=== PATIENT | male | born 1965 | race Caucasian/White ===

== ENCOUNTER 2018-02-08 07:51 | Inpatient (IN) | payer OTHER ==
[~2018-02-08] VITALS: Ht 172.7 cm; Wt 108.5 kg
[~2018-02-08 07:51] MED LIST: AMMONIUM LACTATE121 TOP; AMMONIUM LACTATE121 TP; ARIPIPRAZOLE10 MG PO; ATORVASTATIN CA10 MG PO; AUGMENTIN 500M500 MG PO; AUGMENTIN 875 M1 TAB PO; CEFAZOLIN1 G1 IV; CEFTAZIDIME2 GM IV; CITALOPRAM HYDR40 MG PO; CYCLOPENTOLATE IO; GABAPENTIN300 MG PO; METFORMIN500 MG PO; MIRTAZAPINE15 MG PO; MOBIC15 M1 PO; ONE TOUCH ULTRA TEST; OXYCODONE5 MG PO; PERCOCET 325 MG1 TA2 PO; PERCOCET 5-3251 EACH PO; PREDNISOLONE AC10 ML OPH; QUETIAPINE FUMA25 MG PO; SIMVASTATIN20 MG PO; TRAZODONE100 MG PO; VANCOMYCIN HCL1 G1 IV
--- NOTE | 2018-02-08 08:28 | ED GENERAL ADULT ---
See Addendum History of Present Illness General Chief Complaint: Plantar Puncture Wound Stated Complaint: OPEN WOUND ON L FOOT,FEVER,CHILLS HX OF DIABETES Source: patient, old records, PCP Exam Limitations: no limitations Vital Signs & Intake/Output Vital Signs & Intake/Output Vital Signs Date Time Temp Pulse Resp B/P B/P Pulse O2 O2 Flow FiO2 Mean Ox Delivery Rate 02/08 1108 99.1 83 20 118/68 96 Room Air 02/08 0803 103.0 02/08 0759 103.0 113 18 152/92 99 Room Air Allergies Coded Allergies: simvastatin (UNKNOWN 04/19/16) atorvastatin (From Lipitor) (VERTIGO 04/19/16) Reconcile Medications Aripiprazole 10 MG TABLET 1 TAB PO DAILY MENTAL HEALTH (Reported) Citalopram Hydrobromide (Citalopram HBr) 40 MG TABLET 1 TAB PO DAILY DEPRESSION (Reported) Gabapentin 300 MG CAPSULE 1 CAP PO 4 TIMES/DAY NEUROPATHY (Reported) Meloxicam (Mobic) 15 MG TABLET 1 TAB PO DAILY PRN PAIN/INFLAMMATION METFORMIN HCL (Metformin) 500 MG TABLET 500 MG PO BID DIABETES (Reported) Mirtazapine 15 MG TABLET 1 TAB PO QPM SLEEP (Reported) OXYCODONE HCL/ACETAMINOPHEN (Percocet 5-325 MG Tablet) 325 MG/5 MG TAB 1-2 TAB PO Q4-6 PRN PRN PAIN Oxycodone HCl/Acetaminophen (Percocet 5-325 MG Tablet) 5 MG-325 MG TABLET 1 TAB PO Q6-PRN PRN PAIN SCALE 4-6 (MODERATE) Quetiapine Fumarate 25 MG TAB 1 TAB PO DAILY DEPRESSION (Reported) TRAZODONE HCL (Trazodone HCl) 100 MG TABLET 1 TAB PO QPM SLEEP (Reported) Triage Note: PT TO ED FOR EXACERBATION OF CHRONIC WOUND ON L FOOT, HX DIABETES. REPORTING SUBJECTIVE FEVER AT HOME, CHILLS AND GENERALIZED WEAKNESS. Triage Nurses Notes Reviewed? yes HPI: Patient presents with increasing pain and redness to the ulcer on the bottom of his left foot. Patient sees Dr. Reese in the wound center for this. Patient is diabetic with neuropathy. Patient states that he started running a fever no chills 2 days ago. The fevers on as high as 103 at home. Patient denies any nausea or vomiting. He describes the pain as throbbing which is constant. He rates it at 8 out of 10. There is no aggravating or mitigating factors. There is no radiation of the pain. Past History Travel History Traveled to [place] past 21 day No Medical History Any Pertinent Medical History? 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 MOTHER (TIA, CAD s/p CABG age 70). Hx Contributory? No Review of Systems Review of Systems Constitutional: Reports: see HPI, chills, fever. EENTM: Reports: no symptoms. Respiratory: Reports: no symptoms. Cardiovascular: Reports: no symptoms. GI: Reports: no symptoms. Genitourinary: Reports: no symptoms. Musculoskeletal: Reports: see HPI. Skin: Reports: see HPI. Neurological/Psychological: Reports: no symptoms. Hematologic/Endocrine: Reports: no symptoms. Immunologic/Allergic: Reports: no symptoms. All Other Systems: Reviewed and Negative Physical Exam Physical Exam General Appearance: well developed/nourished, alert, awake, moderate distress Head: atraumatic, normal appearance Eyes: Bilateral: PERRL, EOMI. Ears, Nose, Throat: normal pharynx, normal ENT inspection Neck: normal inspection, supple, full range of motion Respiratory: normal breath sounds, chest non-tender, no respiratory distress, lungs clear Cardiovascular: regular rate/rhythm, normal peripheral pulses Peripheral Pulses: 2+ tibialis posterior (R), 2+ tibialis posterior (L), 3+ dorsalis pedis (R), 3+ dorsalis pedis (L) Gastrointestinal: normal bowel sounds, soft, non-tender, no organomegaly Back: normal inspection Extremities: DEEP ULCER WITH SURROUNDING ERYTHEMA PLANTER ASPECT OF LEFT FOOT. Neurologic/Psych: awake, alert, oriented x 3 Lymphatic: NO ADENOPATHY Core Measures ACS in differential dx? No CVA/TIA Diagnosis: No Sepsis Present: Yes Sepsis Focused Exam Completed? Yes ED Sepsis Exam Date of Focused Sepsis Exam: 02/08/18 Time of Focused Sepsis Exam: 922 Sepsis Cardiac Exam: Regular Rate/Rhythm Sepsis Resp Exam: CTA Sepsis Cap Refill Exam: <2 Sec Sepsis Peripheral Pulse Exam: Normal Sepsis Peripheral Pulse Location: Dorsalis Pedis Sepsis Skin Color Exam: Normal for Ethnicity Skin Temp/Moisture Exam: Warm/Dry Progress Differential Diagnoses I considered the following diagnoses in my evaluation of the patient: [OSTEO, INFECTIC DIABETIC FOOT ULCER] Plan of Care: Orders Procedure Date/time Status LACTIC ACID 02/08 1127 Active RAPID VIRAL INFLUENZA A 02/08 827 Complete BLOOD CULTURE 02/08 827 Active URINALYSIS 02/08 827 Active TROPONIN LEVEL 02/08 827 Complete LACTIC ACID 02/08 827 Complete COMPREHENSIVE METABOLIC PANEL 02/08 827 Complete CBC WITHOUT DIFFERENTIAL 02/08 827 Complete EKG 02/08 827 Active Current Medications Sig/Rafaela Start time Last Medication Dose Stop Time Status Admin Ampicillin Sodium/ 3,000 MG ONCE ONE 02/08 1115 AC Sulbactam Sodium 02/08 1144 (Unasyn) Sodium Chloride 100 ML (Normal Saline 0.9%) Sodium Chloride 1,000 ML BOLUS ONE 02/08 1115 AC (Normal Saline 0.9%) 02/08 1214 Sodium Chloride 1,000 ML BOLUS ONE 02/08 1115 AC (Normal Saline 0.9%) 02/08 1214 Laboratory Tests 02/08/18 0839: Anion Gap 20 H, Estimated GFR > 60, BUN/Creatinine Ratio 17.0, Glucose 199 H, Lactic Acid 1.1, Calcium 9.5, Total Bilirubin 1.4 H, AST 32, ALT 35, Alkaline Phosphatase 93, Troponin I < 0.01, Total Protein 7.1, Albumin 3.9, Globulin 3.2, Albumin/Globulin Ratio 1.2, CBC w Diff MAN DIFF ORDERED, RBC 4.51 L, MCV 79.8 L, MCH 26.6 L, MCHC 33.4, RDW 16.1 H, MPV 8.6, Gran % 86.4 H, Lymphocytes % 6.2 L, Monocytes % 7.1, Eosinophils % 0.2, Basophils % 0.1, Absolute Granulocytes 12.2 H, Absolute Lymphocytes 0.9 L, Absolute Monocytes 1.0 H, Absolute Eosinophils 0, Absolute Basophils 0, Platelet Estimate VERIFIED BY SMEAR, Polychromasia 1+, Anisocytosis 1+, Microcytic Cells 1+ Microbiology 02/08 839 NASOPHARYN: Influenza Virus A & B Rapid Smear - COMP 02/08 839 BLOOD: Blood Culture - RECD 02/08 839 BLOOD: Blood Culture - RECD Diagnostic Imaging: Viewed by Me: Radiology Read. Discussed w/RAD: Radiology Read. Radiology Impression: PATIENT: JOAN VÁZQUEZ PRESENT AGE: 52 PATIENT ACCOUNT NO: [id number] : 67 LOCATION: [facility] ORDERING PHYSICIAN: Stef Mathew MD SERVICE DATE: 02/08/18 EXAM TYPE: RAD - XRY-FOOT COMPLETE, LEFT EXAMINATION: XR FOOT, LEFT CLINICAL INFORMATION: Foot ulcer. COMPARISON: 12/19/16. MRI of 04/20/16. TECHNIQUE: AP, lateral, and oblique views of the left foot. FINDINGS: There is been previous resection of the fifth metatarsal and fifth toe with partial resection at the base of the fourth metatarsal. The fourth metatarsal is partially fused to the third. Extensive erosion along the lateral aspect of the foot involving the cuboid and anterior calcaneus is again demonstrated. Neuropathic changes in the midfoot are again demonstrated. There is marked subluxation or dislocation of the talonavicular joint. Severe degenerative changes. No acute bony abnormality is seen. There is ulceration on the plantar aspect of the foot with extensive air dissection into the lower leg along the fibula concerning for fasciitis. IMPRESSION: 1. Soft tissue ulceration plantar aspect of the foot with prominent air dissection concerning for fasciitis/gangrene. 2. Chronic osseous changes as described with no acute abnormality seen. This critical result was discussed with Dr. Mathew at 1001 hours. DICTATED BY: Brayan Huggins MD DATE/TIME DICTATED:02/08/18945 SYRUP BLENDER:MAEGAN DATE/TIME TRANSCRIBED:945 CONFIDENTIAL, DO NOT COPY WITHOUT APPROPRIATE AUTHORIZATION. < Electronically signed in Other Vendor System> SIGNED BY: Brayan Huggins MD 02/08/18 1005 CXR Impression: PATIENT: JOAN VÁZQUEZ PRESENT AGE: 52 PATIENT ACCOUNT NO: [id number] : 67 LOCATION: [facility] ORDERING PHYSICIAN: Stef Mathew MD SERVICE DATE: 02/08/18 EXAM TYPE: RAD - XRY-CHEST XRAY, TWO VIEWS EXAMINATION: XR CHEST CLINICAL INFORMATION: Fever. Fluid also. Concern for pneumonia. COMPARISON: 04/27/16. 07/30/13. TECHNIQUE: 2 views of the chest were obtained. FINDINGS: No significant abnormality is noted involving the heart, lungs, mediastinum, bony thorax or soft tissues. There is mild chronic interstitial prominence. No focal consolidation or other abnormality is demonstrated. IMPRESSION: No acute abnormality. DICTATED BY: Brayan Huggins MD DATE/TIME DICTATED:02/08/18953 SYRUP BLENDER:MAEGAN DATE/TIME TRANSCRIBED:02/08/18953 CONFIDENTIAL, DO NOT COPY WITHOUT APPROPRIATE AUTHORIZATION. <Electronically signed in Other Vendor System> SIGNED BY: Brayan Huggins MD 02/08/18 1000 Initial ED EKG: S TACH, NO STT CHANGES Prior EKG: unchanged Comments: WAITING ON ABX TO SEE IF HE WILL REQUIRE BONE BIOPSY. Departure Departure Disposition: STILL A PATIENT Condition: Guarded Clinical Impression Primary Impression: Necrotizing fasciitis Referrals: Stef Guthrie MD (PCP/Family) Departure Forms: Customer Survey General Discharge Information OR/GI Note Spoke With: Yuval Betts MD ED Treatment Decision: JOAN VÁZQUEZ requires urgent operative management or an emergent procedure that cannot be performed in the Emergency Room setting. Transport To: [facility] Critical Care Note Critical Care Note Critical Care Time: mins: (120 MIN)
[2018-02-08 09:01] LABS: ABSOLUTE BASOPHIL COUNT 0 /CUMM (0.0-0.2); ABSOLUTE EOSINOPHIL COUNT 0 /CUMM (0.0-0.7); ABSOLUTE GRANULOCYTE CT 12.2 /CUMM (1.4-6.5); ABSOLUTE LYMPH COUNT 0.9 /CUMM (1.2-3.4); BASOPHIL % 0.1 % (0.0-2.0); EOSINOPHIL % 0.2 % (0-5); GRANULOCYTE % 86.4 % (42.2-75.2); MEAN CORPUSCULAR HGB 26.6 PG (27.0-31.0); MEAN CORPUSCULAR HGB CONC 33.4 G/DL (33.0-37.0); MEAN CORPUSCULAR VOLUME 79.8 FL (80.0-94.0); MEAN PLATELET VOLUME 8.6 FL (7.4-10.4); PLATELET COUNT 282 /CUMM (130-400); RBC DISTRIBUTION WIDTH 16.1 % (11.5-14.5); RED BLOOD CELL CT 4.51 /CUMM (4.70-6.10); WHITE BLOOD CELL COUNT 14.1 /CUMM (4.8-10.8)
--- NOTE | 2018-02-08 10:00 | RADIOLOGY REPORT ---
EXAMINATION: XR CHEST CLINICAL INFORMATION: Fever. Fluid also. Concern for pneumonia. COMPARISON: 04/27/16. 07/30/13. TECHNIQUE: 2 views of the chest were obtained. FINDINGS: No significant abnormality is noted involving the heart, lungs, mediastinum, bony thorax or soft tissues. There is mild chronic interstitial prominence. No focal consolidation or other abnormality is demonstrated. IMPRESSION: No acute abnormality.
--- NOTE | 2018-02-08 10:05 | RADIOLOGY REPORT ---
EXAMINATION: XR FOOT, LEFT CLINICAL INFORMATION: Foot ulcer. COMPARISON: 12/19/16. MRI of 04/20/16. TECHNIQUE: AP, lateral, and oblique views of the left foot. FINDINGS: There is been previous resection of the fifth metatarsal and fifth toe with partial resection at the base of the fourth metatarsal. The fourth metatarsal is partially fused to the third. Extensive erosion along the lateral aspect of the foot involving the cuboid and anterior calcaneus is again demonstrated. Neuropathic changes in the midfoot are again demonstrated. There is marked subluxation or dislocation of the talonavicular joint. Severe degenerative changes. No acute bony abnormality is seen. There is ulceration on the plantar aspect of the foot with extensive air dissection into the lower leg along the fibula concerning for fasciitis. IMPRESSION: 1. Soft tissue ulceration plantar aspect of the foot with prominent air dissection concerning for fasciitis/gangrene. 2. Chronic osseous changes as described with no acute abnormality seen. This critical result was discussed with Dr. Mathew at 1001 hours.
--- NOTE | 2018-02-08 11:17 | CT SCAN REPORT ---
EXAMINATION: CT LOWER EXTREMITY WITH CONTRAST, LEFT CLINICAL INFORMATION: Left lower extremity ulcer with air. Question necrotizing fasciitis. Left lower extremity ulcer of left foot per Dr. Mathew. History of diabetes. COMPARISON: Left foot films dated 02/08/2018. TECHNIQUE: Multidetector CT scan of the left ankle and foot was performed in the axial plane. Coronal and sagittal reformations of the ankle and foot were obtained. DLP: 240.45 mGy-cm FINDINGS: As seen on the plain film, there is a deep soft tissue ulceration on the plantar aspect of the mid foot, extending down to the underlying calcaneal neck. There is prominent associated soft tissue edema, which extends along the plantar surface of the midfoot down to the level of the proximal metatarsal bones. The edema also extends posteriorly along the calcaneus and into the lateral malleolus and superiorly along the lateral lower leg. Associated extensive free air in the soft tissues is seen, extending from the site of the ulceration along the lateral margin of the calcaneus and the posterior and lateral margin of the distal tibia over a length of at least 14 cm. The proximal extent of the gaseous dissection and soft tissue edema is not fully included on this CT scan. The gas dissection extends through the lateral compartment of the lower leg and also involves the periphery of the anterior compartment. There is edema and soft tissue infiltration obscuring the fat planes within the anterior and lateral compartments and inferiorly within the posterior compartment. The patient is status post amputation of the fifth metatarsal bone and phalanges and partial amputation of the base of the fourth metatarsal bone. There is partial fusion of the remaining mid left fourth metatarsal bone to the adjacent third metatarsal bone. There is diffuse osteopenia and extensive cystic changes and spurring are noted throughout the mid and hindfoot with fragmentation of the bones seen, consistent with neuropathic joint. Irregular margin of the posterior cortex of the distal tibia and of the anterior and inferior cortex of the fibula is seen, consistent with periostitis. These findings limit the assessment for superimposed osteomyelitis. No definite abnormal periosteal reaction is seen. IMPRESSION: 1. Extensive soft tissue edema and soft tissue air is seen involving the plantar surface of the midfoot and extending along the lateral malleolus proximally into the distal left lower leg. The process is most prominent in the posterior compartment of the leg but also involves the anterior compartment. Findings are suspicious for necrotizing fasciitis and gangrene. As noted above, the proximal extent of the process is not included on this CT scan. 2. Neuropathic joint with bone fragmentation and cystic changes and spurring seen throughout the hind and midfoot and at the ankle joint. Periostitis is also seen involving the distal tibia and fibula. These findings limit assessment for underlying osteomyelitis. Close clinical correlation is requested. An MRI scan of the foot and ankle may be helpful to exclude osteomyelitis. This significant result was discussed with Dr. Stef Mathew 02/08/2018, 11:10 AM and it was ascertained that the content and urgency of this report was understood at the time of direct communication.
[2018-02-08] MEDS ORDERED: GEMFIBROZIL600 M1 PO (12:43)
[2018-02-08] MEDS ORDERED: CRESTOR20 M2 PO (12:44)
[2018-02-08] MEDS ORDERED: METFORMIN HCL500 M4 PO (12:44)
[2018-02-08] MEDS ORDERED: FARXIGA5 M1 PO (12:44)
[2018-02-08] MEDS ORDERED: GLUCOPHAGE XR500 M1 PO (12:44)
[2018-02-08] MEDS ORDERED: GABAPENTIN400 M2 PO (12:44)
[2018-02-08] MEDS ORDERED: BENZTROPINE MESY1 M1 PO (12:45)
[2018-02-08] MEDS ORDERED: ABILIFY10 M1 PO (12:45)
[2018-02-08] MEDS ORDERED: MIRTAZAPINE15 M2 PO (12:45)
[2018-02-08] MEDS ORDERED: CITALOPRAM HBR20 MG PO (12:45)
[2018-02-08] MEDS ORDERED: LISINOPRIL5 M1 PO (12:45)
--- NOTE | 2018-02-08 13:16 | History & Physical ---
Joey PATINOClaudia 02/08/18 6675: General Information and HPI MD Statement: I have seen and personally examined JOAN VÁZQUEZ and documented this H&P. The patient is a 52 year old M who presented with a patient stated chief complaint of [draining wound, redness, swelling off left foot]. Source of Information: patient Exam Limitations: no limitations History of Present Illness: Patient is a 52-year-old male with past medical history of poorly controlled diabetes, chronic nonhealing ulcer on the plantar aspect of the left foot, diabetic neuropathy, osteomyelitis, Hx of MRSA. He presents with complaints of breakdown of his chronic nonhealing ulcer, with serous drainage, worsening erythema, increased warmth and severe pain of the left foot restarted a few days ago. He has had a history of recurrent osteomyelitis and cellulitis of his chronic left foot wound but ffor some time now the wound had begun to heal and he wore a boot to protect his foot and he follows regularly with Dr. Reese. However, a few days ago Dr. Reese removed the boot to give him some rest off it but this lead to a very rapid breakdown and infection of the ulcer. He had fevers at home Tmax 103 in the ED this morning. He denies chest pain, shortness of breath, nausea or vomiting. He takes only metformin 1000 mg in the morning and 500 mg at night and his glucose have been in the 300s at home. His medication hx also lists him as being on farsiga 5mg daily. Patient was taken directly to or from the ED due to CT scan finding suspicious for necrotizing fasciitis and gangrene. Allergies/Medications Home Med list Aripiprazole (Abilify) 10 MG TABLET 1 TAB PO DAILY MENTAL HEALTH (Reported) Benztropine Mesylate 1 MG TABLET 1 TAB PO BID MENTAL HEALTH (Reported) Citalopram Hydrobromide (Citalopram HBr) 20 MG TABLET 1.5 TAB PO DAILY MENTAL HEALTH (Reported) Dapagliflozin Propanediol (Farxiga) 5 MG TABLET 1 TAB PO DAILY DM (Reported) Gabapentin 400 MG CAPSULE 2 CAP PO TID PRN NERVE PAIN (Reported) Gemfibrozil 600 MG TABLET 1 TAB PO BID CHOLESTEROL (Reported) Metformin HCl (Metformin HCl ER) 500 MG TAB.ER.24H 2 TAB PO QAM DM (Reported) Metformin HCl (Glucophage XR) 500 MG TAB.ER.24H 1 TAB PO QPM DM (Reported) with food Mirtazapine 15 MG TABLET 1 TAB PO QHS PRN MENTAL HEALTH (Reported) Rosuvastatin Calcium (Crestor) 20 MG TABLET 1 TAB PO DAILY CHOLESTEROL ( Reported) Compliance With Home Meds: UNKNOWN Past History Travel History Traveled to [place] past 21 day No Medical History Neurological: peripheral neuropathy EENT: allergies Cardiovascular: hypertension, hyperlipidemia Respiratory: NONE Gastrointestinal: NONE Hepatic: NONE Renal: NONE Musculoskeletal: NONE Psychiatric: anxiety, depression, substance abuse, Suicidal ideation Endocrine: diabetes Blood Disorders: anemia Cancer(s): NONE PRINCIPAL SYSTEM SOFTWARE ENGINEER/Reproductive: NONE History of MRSA: Yes History of VRE: No History of CDIFF: No Pneumonia Vaccine: 04/01/16 Surgical History Surgical History: status post debridement of the left foot 08/2013, left foot osteo status post left fifth toe amputation status post Tailor's bunionectomy right foot R FOOT DEBRIDEMENT Past Family/Social History Family History Relations & Conditions if any FATHER (Stomach cancer, CAD s/p CABG at age 70). MOTHER (TIA, CAD s/p CABG age 70). Psychosocial History Who Do You Live With? parent Services at Home: None Primary Language: Portuguese ETOH Use: occasional use Illicit Drug Use: denies illicit drug use Functional Ability ADLs Independent: eating. Needs Assist: dressing, bathing. Ambulation: independent IADLs Independent: telephone. Needs Assist: housework, transportation. Review of Systems Review of Systems Constitutional: Reports: no symptoms. Exam & Diagnostic Data Last 24 Hrs of Vital Signs/I&O Vital Signs Date Time Temp Pulse Resp B/P B/P Pulse O2 O2 Flow FiO2 Mean Ox Delivery Rate 02/08 2216 99.8 97 20 138/84 99 Nasal 3.0L Cannula 02/08 1921 98.2 91 18 123/76 96 Nasal 3.0L Cannula 02/08 1545 98.0 74 18 110/72 97 Room Air 02/08 1306 98.1 80 24 107/57 96 Room Air 02/08 1108 99.1 83 20 118/68 96 Room Air 02/08 0803 103.0 02/08 0759 103.0 113 18 152/92 99 Room Air Intake & Output 02/08 1600 02/08 0800 02/08 0000 Intake Total Output Total Balance Patient 243 lb 243 lb Weight Weight Reported by Patient Reported by Patient Measurement Method Physical Exam General Appearance Alert, Oriented X3, Cooperative, No Acute Distress Sepsis Skin Exam (color): Normal for Ethnicity HEENT PERRLA, EOMI, Mucous Membr. moist/pink Cardiovascular Regular Rate, Normal S1, Normal S2 Lungs Clear to Auscultation, Normal Air Movement Abdomen Normal Bowel Sounds, Soft, No Tenderness Extremities bandaged left foot, warm to touch s/p amputation of the last toe Vascular Normal Pulses, doraslis pedis on the left could not be felt due to being bandaged Last 24 Hrs of Labs/Sree: Laboratory Tests 02/08/18 1235: Lactic Acid 1.0 02/08/18 1132: Urine Color YEL, Urine Clarity CLEAR, Urine pH 5.5, Ur Specific [place] 1.010, Urine Protein 30 H, Urine Ketones >=80, Urine Nitrite NEG, Urine Bilirubin NEG@ ICTO, Urine Urobilinogen 0.2, Ur Leukocyte Esterase NEG, Ur Microscopic SEDIMENT EXAMINED, Urine RBC RARE, Urine Hemoglobin TRACE-INTACT H, Urine Glucose >=1000 H 02/08/18 0839: Anion Gap 20 H, Estimated GFR > 60, BUN/Creatinine Ratio 17.0, Glucose 199 H, Lactic Acid 1.1, Calcium 9.5, Total Bilirubin 1.4 H, AST 32, ALT 35, Alkaline Phosphatase 93, Troponin I < 0.01, Total Protein 7.1, Albumin 3.9, Globulin 3.2, Albumin/Globulin Ratio 1.2, CBC w Diff MAN DIFF ORDERED, RBC 4.51 L, MCV 79.8 L, MCH 26.6 L, MCHC 33.4, RDW 16.1 H, MPV 8.6, Gran % 86.4 H, Lymphocytes % 6.2 L, Monocytes % 7.1, Eosinophils % 0.2, Basophils % 0.1, Absolute Granulocytes 12.2 H, Absolute Lymphocytes 0.9 L, Absolute Monocytes 1.0 H, Absolute Eosinophils 0, Absolute Basophils 0, Platelet Estimate VERIFIED BY SMEAR, Polychromasia 1+, Anisocytosis 1+, Microcytic Cells 1+ Microbiology 02/08 1738 EXTREMITIE: Gross Specimen Examination - RECD 02/08 1738 EXTREMITIE: Gram Stain - RECD 02/08 839 NASOPHARYN: Influenza Virus A & B Rapid Smear - COMP 02/08 839 BLOOD: Blood Culture - RECD 02/08 839 BLOOD: Blood Culture - RECD Diagnostic Data Other Results CT LE with IV contrast 1. Extensive soft tissue edema and soft tissue air is seen involving the plantar surface of the midfoot and extending along the lateral malleolus proximally into the distal left lower leg. The process is most prominent in the posterior compartment of the leg but also involves the anterior compartment. Findings are suspicious for necrotizing fasciitis and gangrene. As noted above, the proximal extent of the process is not included on this CT scan. 2. Neuropathic joint with bone fragmentation and cystic changes and spurring seen throughout the hind and midfoot and at the ankle joint. Periostitis is also seen involving the distal tibia and fibula. These findings limit assessment for underlying osteomyelitis. Close clinical correlation is requested. An MRI scan of the foot and ankle may be helpful to exclude osteomyelitis. Assessment/Plan Assessment: Patient is a 52-year-old male with past medical history of poorly controlled diabetes, chronic nonhealing ulcer on the plantar aspect of the left foot, diabetic neuropathy, osteomyelitis and MRSA. He presents with complaints of breakdown of his chronic nonhealing ulcer, with serous drainage, worsening erythema, increased warmth and severe pain of the left foot restarted a few days ago. He has had a history of recurrent osteomyelitis and cellulitis of his chronic left foot wound but for some time now the wound had begun to heal and he wore a boot to protect his foot and he follows regularly with Dr. Reese. However, a few days ago Dr. Reese removed the boot to give him some rest off it but this lead to a very rapid breakdown and infection of the ulcer. He had fevers at home Tmax 103 in the ED this morning. He denies chest pain, shortness of breath, nausea or vomiting. Assessment 1. Sepsis 2/2 Necrotizing fasciitis of Left foot s/p debridement 2. Poorly controlled diabetes 3. Severe diabetic neuropathy Plan Admit to general medicine floor Obtain blood cultures F/U OR cultures Continue IV vancomycin and IV Unasyn IV fluid normal saline 150 mL per hour SC insulin SS and fingerstick glucose TIDAC and HS Hold Metformin for now Check hemoglobin A1c ID consult in a.m for antibiotic direction Surgical consult Podiatry consult Endocrinology consult for poorly controlled diabetes PT consult Lovenox for DVT prophylaxis Diabetic diet As Ranked By This Provider Problem List: 1. Diabetic neuropathy 2. Necrotizing fasciitis 3. Diabetes Core Measures/Misc (08/18) Acute Coronary Syndrome ACS Diagnosis: Yes Congestive Heart Failure Congestive Heart Failure Diagnosis No Cerebrovascular Accident CVA/TIA Diagnosis: No VTE (View Protocol) VTE Risk Factors No risk factors No Mechanical VTE Prophylaxis d/t N/A MechProphylax Ordered No VTE Pharm Prophylaxis d/t NA PharmProphylax ordered Sepsis (View protocol) Sepsis Present: Yes Resident Review Statement Resident Statement: examined this patient Other Findings: See HPI Hugh Root 02/08/18 1710: Attending MD Review Statement Attending Statement Attending MD Statement: examined this patient, discuss w/resident/PA/PROCESS AUTOMATION ENGINEER, agreed w/resident/PA/PROCESS AUTOMATION ENGINEER, discussed with family, reviewed EMR data (avail), discussed with nursing, discussed with case mgmt, reviewed images, amended to note Attending Assessment/Plan: 52 o/m with pmh of osteomyelitis, DM , HTN with amputation of toes in past presents with increasing pain and redness to the ulcer on the left foot. Patient is diabetic with neuropathy. He c/o fever on as high as 103 at home with elevated WBC and initally tachycardic on arrival to ER. Patient imaging revealed Soft tissue ulceration plantar aspect of the foot with prominent air dissection concerning for fasciitis/gangrene and Chronic osseous changes. Patient is admitted to inpatient medical services for sepsis 2/2 fascitis/gangrene of left foot. Patient started on empiric antibitocis iv vancomycin, iv unasyn, IVF. Podiatry is taking for emergent debridement today. Follow OR cultures. Obtain hba1c. Consult ID, surgery, vascular surgery and podiatry. Plan of care dwed patient bedside. foot. Patient started on empiric antibitocis iv vancomycin, iv unasyn, IVF. Podiatry is taking for emergent debridement today. Follow OR cultures. Obtain hba1c. Consult ID, surgery, vascular surgery and podiatry. Plan of care dwed patient bedside. patient bedside. patient bedside.
[2018-02-08 15:45] VITALS: BP 110/72
--- NOTE | 2018-02-08 18:09 | Operative Report ---
Operative/Inv Procedure Report Surgery Date: 02/08/18 Name of Procedure: 1 open incision and drainage deep to the D fashion with exposure of the flexor tendon and tendon sheath multiple sites left ankle and leg 2 bone biopsy left ankle Pre-Operative Diagnosis: 1 necrotizing fasciitis left lower extremity 2 diabetic peripheral neuropathy Post-Operative Diagnosis: The same Estimated Blood Loss: less than 50ml Surgeon/Motor Rebuilder: YOVANA FLORES DPM Anesthesia: laryngeal mask airway Operative/Procedure Note Note: After obtaining informed consent the patient was brought to the operating room and placed on the operating table in the supine position. The patient isn't securely fastened to the operating table utilizing safety belt. After administration of laryngeal mask airway anesthesia, 20 mL of 0.5% Marcaine plain was infiltrated about the midportion of the left leg. The left lower extremity was then scrubbed prepped and draped in usual aseptic manner. Attention directed left leg, where a probing wound was identified at the plantar lateral heel. A probe was placed and was noted to extend proximally to the lateral leg coursing posterior to the fibula. A 15 blade was utilized to incise the skin along this region and Bovie and blunt dissection was then utilized to deepen the open incision down through the posterior leg at the posterior margin of the fibula. Watery drainage was noted from the open wound bed. The tissue planes were noted separate proximally 12-14 cm proximal to the distal tip of the lateral malleolus. Specimen was sent for microbiologic inspection. Nipple was then irrigated with 3 L normal sterile saline fissure 50,000 units of bacitracin. Following this foot was redraped and surgeon's top of surgical events. Any bleeding vessels identified were cauterized or ligated as encountered. Then packed with Kerlix saturated with half-strength Dakin solution. Followed by 4 x 4's EBD pad Kerlix and a Coban. Patient noted tolerable to procedure and anesthesia well and the patient was transported from the operating room to recovery with vital signs stable.
[2018-02-08 19:21] VITALS: BP 123/76
[2018-02-08 22:16] VITALS: BP 138/84
[2018-02-09 06:20] VITALS: BP 114/73
[2018-02-09 08:48] LABS: ABSOLUTE BASOPHIL COUNT 0 /CUMM (0.0-0.2); ABSOLUTE EOSINOPHIL COUNT 0.1 /CUMM (0.0-0.7); ABSOLUTE GRANULOCYTE CT 5.5 /CUMM (1.4-6.5); ABSOLUTE LYMPH COUNT 0.9 /CUMM (1.2-3.4); ABSOLUTE MONOCYTE COUNT 0.7 /CUMM (0.10-0.60); BASOPHIL % 0.4 % (0.0-2.0); EOSINOPHIL % 1.1 % (0-5); GRANULOCYTE % 76.8 % (42.2-75.2); MEAN CORPUSCULAR HGB CONC 33.8 G/DL (33.0-37.0); MEAN CORPUSCULAR VOLUME 79.9 FL (80.0-94.0); MEAN PLATELET VOLUME 8.3 FL (7.4-10.4); PLATELET COUNT 251 /CUMM (130-400); RBC DISTRIBUTION WIDTH 16.7 % (11.5-14.5); WHITE BLOOD CELL COUNT 7.2 /CUMM (4.8-10.8)
[2018-02-09 09:13] LABS: HEMATOCRIT 28.7 % (42-52)
--- NOTE | 2018-02-09 09:34 | Cons- Endocrinology ---
General Information and HPI Consulting Request Date of Consult: 02/09/18 Requested By: medical team Reason for Consult: management of uncontrolled diabetes type 2. Source of Information: patient, old records Exam Limitations: no limitations History of Present Illness: Patient is a 52-year-old male with past medical history of uncontrolled diabetes type 2, chronic nonhealing ulcer of left foot, diabetic neuropathy, osteomyelitis status post amputation of left 5th toe. He was admitted for necrotizing fasciitis band gangrene of left foot with positive blood culture of gram positive cocci. He underwent surgery for debrivement. His po intake has been poor. Levemir was held. Currently he is on Novolog coverage before meals and his FSGs were 140, 154 and 125. At home, he was on metformin ER 1000 mg am and 500 mg pm. In 12/2017, his HbA1c was 8.8%. Allergies/Medications Allergies: Coded Allergies: simvastatin (UNKNOWN PER PT DOESNT REMEMBER 02/08/18) atorvastatin (From Lipitor) (VERTIGO 04/19/16) Home Med List: Aripiprazole (Abilify) 10 MG TABLET 1 TAB PO DAILY MENTAL HEALTH (Reported) Benztropine Mesylate 1 MG TABLET 1 TAB PO BID MENTAL HEALTH (Reported) Citalopram Hydrobromide (Citalopram HBr) 20 MG TABLET 1.5 TAB PO DAILY MENTAL HEALTH (Reported) Dapagliflozin Propanediol (Farxiga) 5 MG TABLET 1 TAB PO DAILY DM (Reported) Gabapentin 400 MG CAPSULE 2 CAP PO TID PRN NERVE PAIN (Reported) Gemfibrozil 600 MG TABLET 1 TAB PO BID CHOLESTEROL (Reported) Lisinopril 5 MG TABLET 1 TAB PO DAILY BP (Reported) Metformin HCl (Metformin HCl ER) 500 MG TAB.ER.24H 2 TAB PO QAM DM (Reported) Metformin HCl (Glucophage XR) 500 MG TAB.ER.24H 1 TAB PO QPM DM (Reported) with food Mirtazapine 15 MG TABLET 1 TAB PO QHS PRN MENTAL HEALTH (Reported) Rosuvastatin Calcium (Crestor) 20 MG TABLET 1 TAB PO DAILY CHOLESTEROL ( Reported) Review of Systems Review of Systems Constitutional: Reports: see HPI. Cardiovascular: Denies: chest pain. Respiratory: Denies: short of breath. GI: Reports: see HPI (no appetite). Genitourinary: Denies: dysuria. Musculoskeletal: Reports: see HPI. Hematologic/Endocrine: Denies: polyuria, polydipsia. Past History Travel History Traveled to [place] past 21 day No Medical History Blood Transfusion Hx: No Neurological: peripheral neuropathy EENT: allergies Cardiovascular: hypertension, hyperlipidemia Respiratory: NONE Gastrointestinal: NONE Hepatic: NONE Renal: NONE Musculoskeletal: NONE Psychiatric: anxiety, depression, substance abuse, Suicidal ideation Endocrine: diabetes Blood Disorders: anemia Cancer(s): NONE WEB MARKETING MANAGER/Reproductive: NONE Surgical History Surgical History: status post debridement of the left foot 08/2013, left foot osteo status post left fifth toe amputation status post Tailor's bunionectomy right foot R FOOT DEBRIDEMENT Family History Relations & Conditions If Any: FATHER (Stomach cancer, CAD s/p CABG at age 70). MOTHER (TIA, CAD s/p CABG age 70). Psychosocial History Who Do You Live With? parent Services at Home: None Primary Language: Bulgarian Smoking Status: Never Smoked ETOH Use: occasional use Illicit Drug Use: denies illicit drug use Functional Ability ADLs Independent: eating. Needs Assist: dressing, bathing. Ambulation: independent IADLs Independent: telephone. Needs Assist: housework, transportation. Exam & Diagnostic Data Last 24 Hrs of Vital Signs/I&O Vital Signs Date Time Temp Pulse Resp B/P B/P Pulse O2 O2 Flow FiO2 Mean Ox Delivery Rate 02/09 0800 Nasal 3.0L Cannula 02/09 0620 98.3 74 20 114/73 96 Nasal Cannula 02/09 0314 98.2 02/09 0138 98.2 02/09 0039 101.8 02/09 0024 101.8 02/09 0000 96 Nasal 3.0L Cannula 02/08 2216 99.8 97 20 138/84 99 Nasal 3.0L Cannula 02/08 1921 98.2 91 18 123/76 96 Nasal 3.0L Cannula 02/08 1545 98.0 74 18 110/72 97 Room Air 02/08 1306 98.1 80 24 107/57 96 Room Air 02/08 1108 99.1 83 20 118/68 96 Room Air Intake & Output 02/09 1600 02/09 0800 02/09 0000 Intake Total 1320 880 Output Total 950 Balance 370 880 Intake, IV 1200 400 Intake, Oral 120 480 Output, 250 Emesis Output, Urine 700 Patient 238 lb Weight Weight Bed scale Measurement Method Physical Exam General Appearance: no apparent distress Respiratory: lungs clear Cardiovascular: regular rate/rhythm Gastrointestinal: soft, non-tender Extremities: swelling (left foot infection) Labs/Sree Results: Laboratory Tests 02/09 02/08 0730 1235 Chemistry Sodium (137 - 145 mmol/L) 138 Potassium (3.5 - 5.1 mmol/L) 4.3 Chloride (98 - 107 mmol/L) 106 Carbon Dioxide (22 - 30 mmol/L) 22 Anion Gap (5 - 16) 10 BUN (9 - 20 mg/dL) 17 Creatinine (0.7 - 1.2 mg/dL) 0.8 Estimated GFR (>60 ml/min) > 60 BUN/Creatinine Ratio (7 - 25 %) 21.3 Hemoglobin A1c (4.2 - 5.8 %) Pending Lactic Acid (0.7 - 2.1 mmol/L) 1.0 Hematology CBC w Diff NO MAN DIFF REQ WBC (4.8 - 10.8 /CUMM) 7.2 RBC (4.70 - 6.10 /CUMM) 3.60 L Hgb (14.0 - 18.0 G/DL) 9.7 L Hct (42 - 52 %) 28.7 L MCV (80.0 - 94.0 FL) 79.9 L MCH (27.0 - 31.0 PG) 27.0 MCHC (33.0 - 37.0 G/DL) 33.8 RDW (11.5 - 14.5 %) 16.7 H Plt Count (130 - 400 /CUMM) 251 MPV (7.4 - 10.4 FL) 8.3 Gran % (42.2 - 75.2 %) 76.8 H Lymphocytes % (20.5 - 51.1 %) 12.2 L Monocytes % (1.7 - 9.3 %) 9.5 H Eosinophils % (0 - 5 %) 1.1 Basophils % (0.0 - 2.0 %) 0.4 Absolute Granulocytes (1.4 - 6.5 /CUMM) 5.5 Absolute Lymphocytes (1.2 - 3.4 /CUMM) 0.9 L Absolute Monocytes (0.10 - 0.60 /CUMM) 0.7 H Absolute Eosinophils (0.0 - 0.7 /CUMM) 0.1 Absolute Basophils (0.0 - 0.2 /CUMM) 0 02/08 1132 Urines Urine Color (YEL,AMB,STR) YEL Urine Clarity (CLEAR) CLEAR Urine pH (5.0 - 8.0) 5.5 Ur Specific [place] (1.001 - 1.035) 1.010 Urine Protein (NEG,<30 MG/DL) 30 H Urine Ketones (NEG) >=80 Urine Nitrite (NEG) NEG Urine Bilirubin (NEG) NEG@ICTO Urine Urobilinogen (0.1 - 1.0 EU/dl) 0.2 Ur Leukocyte Esterase (NEG) NEG Ur Microscopic SEDIMENT EXAMINED Urine RBC (0 - 5 /HPF) RARE Urine Hemoglobin (NEG) TRACE-INTACT H Urine Glucose (N MG/DL) >=1000 H Assessment/Plan Assessment/Plan Patient is a 52-year-old male with past medical history of uncontrolled diabetes type 2, chronic nonhealing ulcer of left foot, diabetic neuropathy, osteomyelitis status post amputation of left 5th toe. He was admitted for necrotizing fasciitis band gangrene of left foot with positive blood culture of gram positive cocci. He underwent surgery for debrivement. His po intake has been poor. DM management: 1. continue holdling off on Levemir for now; 2. adjust Novolog coverage before meals and add on Novolog coverage at bedtime; detail see the inpatient DM orders; 3. monitor FSGs; 4. f/u HbA1c. will follow. Inpatient Diabetes Orders Before Each Meal: Bolus Insulin: Novolog < 80 mg/dl: no coverage 80-100 mg/dl: no coverage 101-120 mg/dl: 2 units 121-150 mg/dl: 2 units 151-200 mg/dl: 4 units 201-250 mg/dl: 6 units 251-300 mg/dl: 8 units 301-350 mg/dl: 10 units 351-400 mg/dl: 12 units > 400 mg/dl: 14 units Bedtime: Bolus Insulin: Novolog < 80 mg/dl: no coverage 80-100 mg/dl: no coverage 101-120 mg/dl: no coverage 121-150 mg/dl: no coverage 151-200 mg/dl: no coverage 201-250 mg/dl: 2 units 251-300 mg/dl: 3 units 301-350 mg/dl: 4 units 351-400 mg/dl: 5 units > 400 mg/dl: 6 units Consult Acknowledgment - Thank you for your consult request.
--- NOTE | 2018-02-09 10:05 | PN- Housestaff ---
Joey PATINO,[place] 02/09/18 1005: Subjective Follow-up For: 1. Necrotizing fasciitis of Left foot s/p debridement 2. Poorly controlled diabetes 3. Severe diabetic neuropathy Complaints: feeling weak Subjective: Pt seen and examined. Review of Systems Constitutional: Reports: no symptoms. Objective Last 24 Hrs of Vital Signs/I&O Vital Signs Date Time Temp Pulse Resp B/P B/P Pulse O2 O2 Flow FiO2 Mean Ox Delivery Rate 02/09 0800 Nasal 3.0L Cannula 02/09 0620 98.3 74 20 114/73 96 Nasal Cannula 02/09 0314 98.2 02/09 0138 98.2 02/09 0039 101.8 02/09 0024 101.8 02/09 0000 96 Nasal 3.0L Cannula 02/08 2216 99.8 97 20 138/84 99 Nasal 3.0L Cannula 02/08 1921 98.2 91 18 123/76 96 Nasal 3.0L Cannula 02/08 1545 98.0 74 18 110/72 97 Room Air 02/08 1306 98.1 80 24 107/57 96 Room Air 02/08 1108 99.1 83 20 118/68 96 Room Air Intake & Output 02/09 1600 02/09 0800 02/09 0000 Intake Total 1320 880 Output Total 950 Balance 370 880 Intake, IV 1200 400 Intake, Oral 120 480 Output, 250 Emesis Output, Urine 700 Patient 238 lb Weight Weight Bed scale Measurement Method Physical Exam General Appearance: Alert, Oriented X3, Cooperative, No Acute Distress Sepsis Skin Exam (color): Normal for Ethnicity Cardiovascular: Regular Rate, Normal S1, Normal S2 Lungs: Clear to Auscultation, Normal Air Movement Abdomen: Normal Bowel Sounds, Soft, No Tenderness Extremities: Normal Pulses, bandaged left foot, s/p amputation of last toe. Rt foot is normal Current Medications: Current Medications Sig/Rafaela Start time Last Medication Dose Route Stop Time Status Admin Acetaminophen 650 MG Q6P PRN 02/08 1545 AC PO Acetaminophen 1,000 MG Q6P PRN 02/08 1545 AC 02/09 IV 0039 Ampicillin Sodium/ 3,000 MG Q6 02/08 1800 AC 02/09 Sulbactam Sodium IV 0537 Sodium Chloride 100 ML Ampicillin Sodium/ 0 .STK-MED ONE 02/08 1131 DC Sulbactam Sodium .ROUTE Ampicillin Sodium/ 3,000 MG ONCE ONE 02/08 1115 DC 02/08 Sulbactam Sodium IV 02/08 1144 1139 Sodium Chloride 100 ML Fentanyl Citrate 200 MCG .STK-MED ONE 02/08 1615 DC IM 02/08 1616 Hydromorphone HCl 0.5 MG Q4P PRN 02/08 1545 AC 02/09 IV 0537 Insulin Aspart 0 TIDAC/HS 02/09 1200 AC SC Insulin Aspart 0 TIDAC 02/08 1700 DC SC Insulin Detemir 10 UNITS BID 02/08 2320 DC SC Meperidine HCl 50 MG .STK-MED ONE 02/08 1841 DC IM 02/08 1842 Midazolam HCl 2 MG .STK-MED ONE 02/08 1616 DC IM 02/08 1617 Morphine Sulfate 4 MG ONCE ONE 02/08 1315 DC 02/08 IV 02/08 1316 1316 Morphine Sulfate 0 .STK-MED ONE 02/08 1315 DC .ROUTE Ondansetron HCl 4 MG Q6P PRN 02/08 2245 AC IV Promethazine HCl 25 MG ONCE ONE 02/08 2345 DC 02/08 IV 02/08 2346 2345 Sodium Chloride 1,000 ML Q13H 02/08 1545 AC 02/08 IV 1944 Sodium Chloride 1,000 ML BOLUS ONE 02/08 1115 DC 02/08 IV 02/08 1214 1139 Sodium Chloride 1,000 ML BOLUS ONE 02/08 1115 DC 02/08 IV 02/08 1214 1231 Vancomycin HCl 1,500 MG Q12H 02/09 0130 AC 02/09 Dextrose/Water 250 ML IV 0040 Vancomycin HCl 1,500 MG DAILY 02/08 1939 CAN Dextrose/Water 250 ML IV 02/09 1938 Vancomycin HCl 1,500 MG ONCE ONE 02/08 1215 DC 02/08 Dextrose/Water 250 ML IV 02/08 1344 1316 Last 24 Hrs of Lab/Sree Results Last 24 Hrs of Labs/Mics: Laboratory Tests 02/09/18 0730: Anion Gap 10, Estimated GFR > 60, BUN/Creatinine Ratio 21.3, Hemoglobin A1c Pending, CBC w Diff NO MAN DIFF REQ, RBC 3.60 L, MCV 79.9 L, MCH 27.0, MCHC 33.8, RDW 16.7 H, MPV 8.3, Gran % 76.8 H, Lymphocytes % 12.2 L, Monocytes % 9.5 H, Eosinophils % 1.1, Basophils % 0.4, Absolute Granulocytes 5.5, Absolute Lymphocytes 0.9 L, Absolute Monocytes 0.7 H, Absolute Eosinophils 0.1, Absolute Basophils 0 02/08/18 1235: Lactic Acid 1.0 02/08/18 1132: Urine Color YEL, Urine Clarity CLEAR, Urine pH 5.5, Ur Specific [place] 1.010, Urine Protein 30 H, Urine Ketones >=80, Urine Nitrite NEG, Urine Bilirubin NEG@ ICTO, Urine Urobilinogen 0.2, Ur Leukocyte Esterase NEG, Ur Microscopic SEDIMENT EXAMINED, Urine RBC RARE, Urine Hemoglobin TRACE-INTACT H, Urine Glucose >=1000 H Microbiology 02/08 1738 EXTREMITIE: Gross Specimen Examination - RES GRAM NEGATIVE RODS STAPH AUREUS 02/08 1738 EXTREMITIE: Gram Stain - RES Assessment/Plan Assessment: Patient is a 52-year-old male with past medical history of poorly controlled diabetes, chronic nonhealing ulcer on the plantar aspect of the left foot, diabetic neuropathy, osteomyelitis and MRSA. He presents with complaints of breakdown of his chronic nonhealing ulcer, with serous drainage, worsening erythema, increased warmth and severe pain of the left foot restarted a few days ago. He has had a history of recurrent osteomyelitis and cellulitis of his chronic left foot wound but for some time now the wound had begun to heal and he wore a boot to protect his foot and he follows regularly with Dr. Reese. However, a few days ago Dr. Reese removed the boot to give him some rest off it but this lead to a very rapid breakdown and infection of the ulcer. He had fevers at home Tmax 103 in the ED this morning. He denies chest pain, shortness of breath, nausea or vomiting. He has a hx of MRSA. Assessment 1. Necrotizing fasciitis of Left foot s/p debridement Post op-day #1 He spiked a fever orf 101.8 overnight, elevated WBC resovled Blood cultures growing gram positive cocci; sensitivities pending. Possibly MRSA , so we'll empirically cover it OR cultures growing gram negative rods and staph aureus; sensitivities pending Continue IV vancomycin and Unasyn pending ID input F/u ID recommendations F/u Podiatry recommendations 2. Poorly controlled diabetes Endocrine input appreciated F/U Hb A1c Continue hydration with IV fluid normal saline 150 mL per hour Continue SS insulin per endo recs Continue to hold metformin for now 3. Severe diabetic neuropathy Continue gabapentin 800mg TID PT consult 4. Microcytic anemia s/p surgery H&H drop from 12 yesterday to 9.5 Pt appears pale on exam and feels weak, however vitals stable Monitor daily CBC and transfuse if <7 or worsening symptoms Guaic all stools 5. Chronic medical conditions-HTN, HLD, Depression Med list confirmed from pt's pharmacy and restarted. Muut lists an allergy for simvastatin/atorvastatin but patient denies knowledge of any allergy to this medication and his pharmacy ([facility]) confirm patient has been filling Rosuvostatin. Will remove this allergy from the system. Watch for any allergies. Lovenox for DVT prophylaxis Diabetic diet FC Problem List: 1. Necrotizing fasciitis 2. Diabetic neuropathy 3. Diabetes Pain Ratin Pain Location: left foot Pain Goal: Remain pain free Pain Plan: dilaudid and tyelenol Tomorrow's Labs & Rationales: cbc, bep Hugh Root 02/09/18 1102: Attending MD Review Statement Attending Statement Attending MD Statement: examined this patient, discuss w/resident/PA/PUBLIC WORKS INSPECTOR, agreed w/resident/PA/PUBLIC WORKS INSPECTOR, discussed with family, reviewed EMR data (avail), discussed with nursing, discussed with case mgmt, reviewed images, amended to note Attending Assessment/Plan: 52 o/m with pmh of osteomyelitis, DM , HTN with amputation of toes in past presents with increasing pain and redness to the ulcer on the left foot. Patient is diabetic with neuropathy. He c/o fever on as high as 103 at home with elevated WBC and initally tachycardic on arrival to ER. Patient imaging revealed Soft tissue ulceration plantar aspect of the foot with prominent air dissection concerning for fasciitis/gangrene and Chronic osseous changes. labs and imaging noted. WBC improving. Vital stable. LA 1.1 Patient is admitted to inpatient medical services for sepsis 2/2 fascitis/ gangrene of left foot s/p emergent debridement. Patient on iv abx, vancomycin, flagyl and ceftriaxone as per ID, IVF. Follow OR cultures. Obtain arterial doppler. f/u hba1c. RISS and titrate insulin as needed. Follow endo. ID, vascular surgery and podiatry. Plan of care dwed patient bedside.
--- NOTE | 2018-02-09 12:27 | Cons- Infect Disease ---
General Information and HPI Consulting Request Date of Consult: 02/09/18 Requested By: Hugh Root MD Reason for Consult: Infection left foot Source of Information: patient, old records History of Present Illness: This is a 52-year-old man with a history of diabetes, peripheral neuropathy, substance abuse, status post multiple surgeries on the left foot including left fifth toe amputation, resection of the left fourth metatarsal bone and distal cuboid of the left foot, with a nonhealing left foot wound since his last surgery 15 months prior to admission, followed weekly by Podiatry as an outpatient, admitted on February 08 with a several day history of pain, erythema extending to the dorsum of the left foot, fevers and chills beginning 1 week after removal of the boot that had been in place for 6 months. On admission he was febrile to 103. Laboratory data revealed a white blood cell count of 14,000 , glucose 199, BUN/creatinine 17 and 1.0, bilirubin 1.4. Urinalysis rare RBCs. Chest x-ray was negative. X-ray of the left foot revealed erosion along the lateral aspect of the foot involving the cuboid and anterior calcaneus; neuropathic changes in the midfoot; ulceration on the plantar aspect of the foot with extensive air dissection into the lower leg along the fibula, concerning for fasciitis. CT of the left leg revealed extensive soft tissue edema and soft tissue air involving the plantar surface of the midfoot and extending along the lateral malleolus proximally into the distal left lower leg; neuropathic joint with bony fragmentation and cystic changes and spurring throughout the hind and midfoot and at the ankle joint, with periostitis involving the distal tibia and fibula. He was begun on Unasyn and Vancomycin and was taken to the OR for an I& D deep to the deep fascia and a bone biopsy. Later in the evening blood cultures 2 were reported positive for gram-positive cocci in clusters. He was again febrile overnight to 101.8 but feels improved today with decreased pain. Allergies/Medications Allergies: Coded Allergies: simvastatin (UNKNOWN PER PT DOESNT REMEMBER 02/08/18) atorvastatin (From Lipitor) (VERTIGO 04/19/16) Home Med List: Aripiprazole (Abilify) 10 MG TABLET 1 TAB PO DAILY MENTAL HEALTH (Reported) Benztropine Mesylate 1 MG TABLET 1 TAB PO BID MENTAL HEALTH (Reported) Citalopram Hydrobromide (Citalopram HBr) 20 MG TABLET 1.5 TAB PO DAILY MENTAL HEALTH (Reported) Dapagliflozin Propanediol (Farxiga) 5 MG TABLET 1 TAB PO DAILY DM (Reported) Gabapentin 400 MG CAPSULE 2 CAP PO TID PRN NERVE PAIN (Reported) Gemfibrozil 600 MG TABLET 1 TAB PO BID CHOLESTEROL (Reported) Metformin HCl (Metformin HCl ER) 500 MG TAB.ER.24H 2 TAB PO QAM DM (Reported) Metformin HCl (Glucophage XR) 500 MG TAB.ER.24H 1 TAB PO QPM DM (Reported) with food Mirtazapine 15 MG TABLET 1 TAB PO QHS PRN MENTAL HEALTH (Reported) Rosuvastatin Calcium (Crestor) 20 MG TABLET 1 TAB PO DAILY CHOLESTEROL ( Reported) Past History Travel History Traveled to [place] past 21 day No Medical History Blood Transfusion Hx: No Neurological: peripheral neuropathy EENT: allergies Cardiovascular: hypertension, hyperlipidemia Respiratory: NONE Gastrointestinal: NONE Hepatic: NONE Renal: NONE Musculoskeletal: NONE Psychiatric: anxiety, depression, substance abuse, Suicidal ideation Endocrine: diabetes Blood Disorders: anemia Cancer(s): NONE SPORTS TEAM MANAGER/Reproductive: NONE History of MRSA: Yes History of VRE: No History of CDIFF: No Isolation History: Contact Pneumonia Vaccine: 04/01/16 Surgical History Surgical History: status post amputation of the left fifth toe and resection of the left fourth metatarsal status post Tailor's bunionectomy right foot R FOOT DEBRIDEMENT Family History Relations & Conditions If Any: FATHER (Stomach cancer, CAD s/p CABG at age 70). MOTHER (TIA, CAD s/p CABG age 70). Psychosocial History Who Do You Live With? parent Services at Home: None Primary Language: Albanian Smoking Status: Never Smoked ETOH Use: occasional use Illicit Drug Use: denies illicit drug use Functional Ability ADLs Independent: eating. Needs Assist: dressing, bathing. Ambulation: independent IADLs Independent: telephone. Needs Assist: housework, transportation. Review of Systems Review of Systems All Other Systems: Reviewed and Negative Exam & Diagnostic Data Last 24 Hrs of Vital Signs/I&O Vital Signs Date Time Temp Pulse Resp B/P B/P Pulse O2 O2 Flow FiO2 Mean Ox Delivery Rate 02/09 0800 Nasal 3.0L Cannula 02/09 0620 98.3 74 20 114/73 96 Nasal Cannula 02/09 0314 98.2 02/09 0138 98.2 02/09 0039 101.8 02/09 0024 101.8 02/09 0000 96 Nasal 3.0L Cannula 02/08 2216 99.8 97 20 138/84 99 Nasal 3.0L Cannula 02/08 1921 98.2 91 18 123/76 96 Nasal 3.0L Cannula 02/08 1545 98.0 74 18 110/72 97 Room Air 02/08 1306 98.1 80 24 107/57 96 Room Air Intake & Output 02/09 1600 02/09 0800 02/09 0000 Intake Total 1320 880 Output Total 950 Balance 370 880 Intake, IV 1200 400 Intake, Oral 120 480 Output, 250 Emesis Output, Urine 700 Patient 238 lb Weight Weight Bed scale Measurement Method Physical Exam Other Physical Findings: MAXIMUM TEMPERATURE 101.8. He is awake and alert in no acute distress. Skin reveals no rash. HEENT negative. Neck is supple with no adenopathy. Lungs are clear. Heart regular rhythm with no murmur. Abdomen is soft, nontender with positive bowel sounds. Back no CVA tenderness. Extremities left foot dressing intact; right foot with no ulcerations and with 2+ pulses, with no cyanosis, clubbing or edema. Neuro is without focality. Last 24 Hours of Lab Results: Laboratory Tests 02/09 02/08 0730 1235 Chemistry Sodium (137 - 145 mmol/L) 138 Potassium (3.5 - 5.1 mmol/L) 4.3 Chloride (98 - 107 mmol/L) 106 Carbon Dioxide (22 - 30 mmol/L) 22 Anion Gap (5 - 16) 10 BUN (9 - 20 mg/dL) 17 Creatinine (0.7 - 1.2 mg/dL) 0.8 Estimated GFR (>60 ml/min) > 60 BUN/Creatinine Ratio (7 - 25 %) 21.3 Hemoglobin A1c (4.2 - 5.8 %) 8.9 H Lactic Acid (0.7 - 2.1 mmol/L) 1.0 Hematology CBC w Diff NO MAN DIFF REQ WBC (4.8 - 10.8 /CUMM) 7.2 RBC (4.70 - 6.10 /CUMM) 3.60 L Hgb (14.0 - 18.0 G/DL) 9.7 L Hct (42 - 52 %) 28.7 L MCV (80.0 - 94.0 FL) 79.9 L MCH (27.0 - 31.0 PG) 27.0 MCHC (33.0 - 37.0 G/DL) 33.8 RDW (11.5 - 14.5 %) 16.7 H Plt Count (130 - 400 /CUMM) 251 MPV (7.4 - 10.4 FL) 8.3 Gran % (42.2 - 75.2 %) 76.8 H Lymphocytes % (20.5 - 51.1 %) 12.2 L Monocytes % (1.7 - 9.3 %) 9.5 H Eosinophils % (0 - 5 %) 1.1 Basophils % (0.0 - 2.0 %) 0.4 Absolute Granulocytes (1.4 - 6.5 /CUMM) 5.5 Absolute Lymphocytes (1.2 - 3.4 /CUMM) 0.9 L Absolute Monocytes (0.10 - 0.60 /CUMM) 0.7 H Absolute Eosinophils (0.0 - 0.7 /CUMM) 0.1 Absolute Basophils (0.0 - 0.2 /CUMM) 0 Last 24 Hours of Sree Results: Blood cultures 2 February 08 positive for gram-positive cocci in clusters OR culture February 08 labeled right foot positive for Staph aureus and gram- negative rods Rapid flu swab February 08 negative Diagnostic Data Recent Imaging Findings: Chest x-ray was negative. X-ray of the left foot revealed erosion along the lateral aspect of the foot involving the cuboid and anterior calcaneus; neuropathic changes in the midfoot; ulceration on the plantar aspect of the foot with extensive air dissection into the lower leg along the fibula, concerning for fasciitis. CT of the left leg revealed extensive soft tissue edema and soft tissue air involving the plantar surface of the midfoot and extending along the lateral malleolus proximally into the distal left lower leg; neuropathic joint with bony fragmentation and cystic changes and spurring throughout the hind and midfoot and at the ankle joint, with periostitis involving the distal tibia and fibula. Assessment/Plan Assessment/Plan Impression: This is a 52-year-old man with a history of diabetes and peripheral neuropathy, status post multiple surgeries on the left foot, with a nonhealing left foot wound since his last surgery 15 months prior to admission, admitted on February 08 with a several day history of pain, erythema extending to the dorsum of the left foot, fevers and chills beginning 1 week after removal of the boot, found to be febrile with a leukocytosis and with an x-ray of the left foot and CT of the left lower extremity revealing findings concerning for necrotizing fasciitis and gangrene, requiring urgent drainage and debridement in the OR last night, now with blood cultures 2 positive for gram-positive cocci in clusters and with his OR culture positive for Staph aureus and gram-negative rods. His clinical picture is consistent with necrotizing fasciitis, which appears to be polymicrobial, with secondary sepsis. He presumably has underlying chronic osteomyelitis as well. His blood cultures may prove to be MRSA, given his history, and he can be continued on the Vancomycin, with his gram-negative coverage broadened, pending final cultures. He may benefit from vascular surgery evaluation and, given the failure of his wound to heal, suspect he may require a BKA for ultimate resolution. Suggestion: 1. Follow-up final OR and blood cultures 2. Repeat blood cultures 2 in the AM February 10 3. Vascular surgery evaluation 4. Discontinue Unasyn 5. Begin Ceftriaxone 2 grams IV every 24 hours and Flagyl 500 mg IV every 8 hours pending above 6. Continue Vancomycin pending above Consult Acknowledgment - Thank you for your consult request.
[2018-02-09 14:39] VITALS: BP 110/79
--- NOTE | 2018-02-09 14:57 | ULTRASOUND REPORT ---
EXAMINATION: US-BILAT LOW EXTR ARTERIAL DOP CLINICAL INFORMATION: Severe diabetic neuropathy. History of chronic nonhealing ulcer on left lower extremity. COMPARISON: None. TECHNIQUE: Real-time ultrasound and Doppler techniques (integrating B-mode 2-D vascular images, Doppler spectral analysis and color flow Doppler imaging) were utilized to interrogate the lower extremities. FINDINGS: Right lower extremity: Common femoral artery: 102 cm/sec; triphasic waveform Superficial femoral artery proximal: 76 cm/sec; triphasic waveform Superficial femoral artery mid portion: 84 cm/sec; triphasic waveform Superficial femoral artery distal: 67 cm/sec; triphasic waveform Profunda artery: 46 cm/sec; triphasic waveform Popliteal artery: 62 cm/sec; triphasic waveform Posterior tibial artery: 79 cm/sec; triphasic waveform Anterior tibial artery: 61 cm/sec; biphasic waveform Dorsalis pedis artery: 48 cm/sec; biphasic waveform Left lower extremity: Common femoral artery: 97 cm/sec; triphasic waveform Superficial femoral artery proximal: 105 cm/sec; triphasic waveform Superficial femoral artery mid portion: 87 cm/sec; triphasic waveform Superficial femoral artery distal: 69 cm/sec; triphasic waveform Profunda artery: 15 cm/sec; triphasic waveform Popliteal artery: 125 cm/sec; triphasic waveform Posterior tibial artery: 117 cm/sec; triphasic waveform Anterior tibial artery: 92 cm/sec; biphasic waveform Dorsalis pedis artery: Not visualized due to bandages. ADDITIONAL FINDINGS: None. IMPRESSION: No evidence of a hemodynamically significant stenosis in the lower extremities by velocity or waveform criteria. Greater sensitivity and specificity can be obtained with pre-and post exercise PVRs with JULI calculations. Also consider dedicated CTA for further anatomical detail.
[2018-02-09 22:28] VITALS: BP 128/76
[2018-02-10 06:20] VITALS: BP 118/66
--- NOTE | 2018-02-10 07:22 | PN- Housestaff ---
Vonda PATINO,Stef 02/10/18 0722: Subjective Follow-up For: Necrotizing fasciitis of Left foot s/p debridement POD # 2 Poorly controlled diabetes Severe diabetic neuropathy Subjective: Patient was seen and examined bedside. He was resting comfortably. He had no acute events overnight. Yesterday afternoon he was had a subjective fever and was febrile MAXIMUM TEMPERATURE 100.9. He reports mild left foot pain but has no other complaints currently. He denies any nausea, vomiting, chills, chest pain, shortness of breath. Review of Systems Constitutional: Reports: see HPI, fever. Denies: chills, malaise. EENTM: Reports: no symptoms. Cardiovascular: Reports: no symptoms. Respiratory: Reports: no symptoms. Gastrointestinal: Reports: no symptoms. Genitourinary: Reports: no symptoms. Objective Last 24 Hrs of Vital Signs/I&O Vital Signs Date Time Temp Pulse Resp B/P B/P Pulse O2 O2 Flow FiO2 Mean Ox Delivery Rate 02/10 0620 99.2 71 20 118/66 93 Nasal Cannula 02/09 2228 98.6 78 20 128/76 94 Nasal Cannula 02/09 1439 100.9 74 18 110/79 96 02/09 1229 100.1 02/09 0800 Nasal 3.0L Cannula Intake & Output 02/10 0800 02/10 0000 02/09 1600 Intake Total 1200 2000 Output Total 300 480 875 Balance 900 -480 1125 Intake, IV 1200 1200 Intake, Oral 800 Output, Urine 300 480 875 Patient 238 lb Weight Weight Bed scale Measurement Method Physical Exam General Appearance: Alert, Oriented X3, Cooperative, No Acute Distress Skin Temp/Moisture Exam: Warm/Dry Sepsis Skin Exam (color): Normal for Ethnicity (1) Cardiovascular: Regular Rate, Normal S1, Normal S2 Lungs: Clear to Auscultation, Normal Air Movement Abdomen: Normal Bowel Sounds, Soft, No Tenderness Neurological: Normal Speech, Normal Tone Extremities: L foot wrapped in surgical bandage, no sign of leakage or saturation Sepsis Peripheral Pulse Location: Radial Sepsis Peripheral Pulse Exam: Normal Sepsis Cap Refill Exam: <2 Sec Current Medications: Current Medications Sig/Rafaela Start time Last Medication Dose Route Stop Time Status Admin Acetaminophen 650 MG .STK-MED ONE 02/09 1219 DC PO 02/09 1220 Acetaminophen 650 MG Q6P PRN 02/08 1545 AC 02/09 PO 1229 Acetaminophen 1,000 MG Q6P PRN 02/08 1545 AC 02/09 IV 0039 Ampicillin Sodium/ 3,000 MG Q6 02/08 1800 DC 02/09 Sulbactam Sodium IV 1229 Sodium Chloride 100 ML Aripiprazole 10 MG DAILY 02/09 1047 AC 02/09 PO 1228 Atorvastatin Calcium 80 MG 1700 02/09 1700 CAN PO Benztropine Mesylate 1 MG BID 02/09 1047 AC 02/09 PO 2153 Ceftriaxone Sodium 2,000 MG DAILY@1700 02/09 1700 AC 02/09 IV 1734 Citalopram 30 MG DAILY 02/09 1047 AC 02/09 Hydrobromide PO 1229 Dextrose/Sodium 1,000 ML Q13H 02/10 0600 AC 02/10 Chloride IV 0638 Gabapentin 800 MG TID PRN 02/09 1030 AC 02/09 PO 1509 Gemfibrozil 600 MG BID 02/09 1047 AC 02/09 PO 2153 Hydromorphone HCl 0.5 MG Q4P PRN 02/08 1545 AC 02/10 IV 0307 Insulin Aspart 0 TIDAC/HS 02/09 1200 DC 02/09 SC 1737 Insulin Aspart 0 TIDAC 02/08 1700 DC SC Insulin Human Regular 0 Q6 02/09 2359 AC SC Metronidazole 500 MG IQ8 02/10 0000 AC 02/09 N/A 1 UNIT IV 2348 Mirtazapine 15 MG AT BEDTIME PRN 02/09 2200 AC 02/09 PO 2153 Ondansetron HCl 4 MG Q6P PRN 02/08 2245 AC IV Rosuvastatin Calcium 20 MG 1700 02/09 1700 AC 02/09 PO 1736 Sodium Chloride 1,000 ML Q13H 02/08 1545 AC 02/09 IV 2155 Vancomycin HCl 1,500 MG Q12H 02/09 0130 AC 02/10 Dextrose/Water 250 ML IV 0101 Last 24 Hrs of Lab/Sree Results Last 24 Hrs of Labs/Mics: Laboratory Tests 02/09/18 0730: Anion Gap 10, Estimated GFR > 60, BUN/Creatinine Ratio 21.3, Hemoglobin A1c 8.9 H, CBC w Diff NO MAN DIFF REQ, RBC 3.60 L, MCV 79.9 L, MCH 27.0, MCHC 33.8, RDW 16.7 H, MPV 8.3, Gran % 76.8 H, Lymphocytes % 12.2 L, Monocytes % 9.5 H, Eosinophils % 1.1, Basophils % 0.4, Absolute Granulocytes 5.5, Absolute Lymphocytes 0.9 L, Absolute Monocytes 0.7 H, Absolute Eosinophils 0.1, Absolute Basophils 0 Microbiology 02/10 0600 BLOOD: Blood Culture - COLB 02/10 0600 BLOOD: Blood Culture - COLB Assessment/Plan Assessment: Patient is a 52-year-old male with past medical history of poorly controlled diabetes, chronic nonhealing ulcer on the plantar aspect of the left foot, diabetic neuropathy, osteomyelitis and MRSA. He presents with complaints of breakdown of his chronic nonhealing ulcer, with serous drainage, worsening erythema, increased warmth and severe pain of the left foot restarted a few days ago. He has had a history of recurrent osteomyelitis and cellulitis of his chronic left foot wound but for some time now the wound had begun to heal and he wore a boot to protect his foot and he follows regularly with Dr. Reese. However, a few days ago Dr. Reese removed the boot to give him some rest off it but this lead to a very rapid breakdown and infection of the ulcer. He had fevers at home Tmax 103 in the ED this morning. He denies chest pain, shortness of breath, nausea or vomiting. He has a hx of MRSA. Assessment #Necrotizing fasciitis of Left foot s/p debridement Post op-day #2, plan to return to OR today with Dr. Reese. This is a spiked a fever MAXIMUM TEMPERATURE 100.9. Leukocytosis is resolved. Blood cultures are positive for Klebsiella and MRSA. MRSA sensitive to vancomycin, Klebsiella sensitive to ceftriaxone. Or cultures currently growing gram-negative rods and staph aureus. -Follow-up final cultures and sensitivities from our -Repeat blood cultures done today, if persistent positive for MRSA will consider echo to rule out endocarditis -Continue vancomycin, antibiotic regimen changed from Unasyn to Flagyl and ceftriaxone -ID recommendations appreciated -Follow podiatry recommendations postoperatively -Arterial Doppler ultrasound showed no significant stenosis, will consult vascular surgery for need to workup extensive vascular disease given persistent nonhealing ulcer #Poorly controlled diabetes Hgb A1c 8.9. Blood sugars have been well controlled on this admission -We'll switch back to previous NovoLog sliding scale after patient's diet is resumed -Endocrine input appreciated Continue hydration with IV fluid normal saline 150 mL per hour #Severe diabetic neuropathy -Continue gabapentin 800mg TID -PT consult #Microcytic anemia s/p surgery Patient's initial drop in H/H could be dilutional as it has remained stable today -follow-up stool guaiac #Chronic medical conditions-HTN, HLD, Depression -continue home medications Lovenox for DVT prophylaxis NPO for OR today, resume diabetic diet Post-op FC Problem List: 1. Necrotizing fasciitis Pain Ratin Pain Location: L foot Pain Goal: Pain 4 or less Pain Plan: pain pathway Tomorrow's Labs & Rationales: cbc, bep Valarie Chi MD 02/10/18 1430: Attending MD Review Statement Attending Statement Attending MD Statement: examined this patient, discuss w/resident/PA/HEEL FINISHER, agreed w/resident/PA/HEEL FINISHER, reviewed EMR data (avail) Attending Assessment/Plan: Continue to follow ID and podiatry recommendations, continue antibiotics, local wound care, follow cultures
--- NOTE | 2018-02-10 08:20 | PN- Diabetes ---
Assessment/Plan Diabetes Assessment: Patient is a 52-year-old male with past medical history of uncontrolled diabetes type 2, chronic nonhealing ulcer of left foot, diabetic neuropathy, osteomyelitis status post amputation of left 5th toe. He was admitted for necrotizing fasciitis band gangrene of left foot with positive blood culture of gram positive cocci. He underwent surgery for debrivement. He is going to go back to OR again for more procedure. Currently he is on D51/2 NS at 75 ml/hour and RISS coverage every 6 hours. His FSGs were 195, 143, 106, 105 and 106. Plan: --continue the current treatment for now; ---after he is back from OR and ready to eat meals, please restart his previous Novolog coverage before meals and Novolog coverage at bedtime; ---monitor FSGs. will follow. Subjective Subjective: His glucose level has been stable. Objective Last 24 Hrs of Vital Signs/I&O Vital Signs Date Time Temp Pulse Resp B/P B/P Pulse O2 O2 Flow FiO2 Mean Ox Delivery Rate 02/10 0620 99.2 71 20 118/66 93 Nasal Cannula 02/09 2228 98.6 78 20 128/76 94 Nasal Cannula 02/09 1439 100.9 74 18 110/79 96 02/09 1229 100.1 Intake & Output 02/10 1600 02/10 0800 02/10 0000 Intake Total 1200 Output Total 300 480 Balance 900 -480 Intake, IV 1200 Output, Urine 300 480 Patient 238 lb Weight Weight Bed scale Measurement Method
[2018-02-10 09:09] LABS: ABSOLUTE BASOPHIL COUNT 0 /CUMM (0.0-0.2); ABSOLUTE EOSINOPHIL COUNT 0.3 /CUMM (0.0-0.7); ABSOLUTE GRANULOCYTE CT 3.9 /CUMM (1.4-6.5); ABSOLUTE LYMPH COUNT 1.2 /CUMM (1.2-3.4); ABSOLUTE MONOCYTE COUNT 0.6 /CUMM (0.10-0.60); BASOPHIL % 0.6 % (0.0-2.0); EOSINOPHIL % 5.3 % (0-5); GRANULOCYTE % 64.8 % (42.2-75.2); HEMATOCRIT 28.1 % (42-52); MEAN CORPUSCULAR HGB 26.6 PG (27.0-31.0); MEAN CORPUSCULAR HGB CONC 33.4 G/DL (33.0-37.0); MEAN CORPUSCULAR VOLUME 79.6 FL (80.0-94.0); MEAN PLATELET VOLUME 7.9 FL (7.4-10.4); PLATELET COUNT 277 /CUMM (130-400); RBC DISTRIBUTION WIDTH 16.7 % (11.5-14.5); RED BLOOD CELL CT 3.53 /CUMM (4.70-6.10)
--- NOTE | 2018-02-10 13:11 | Cons- Vascular Surgery ---
General Information and HPI Consulting Request Date of Consult: 02/10/18 Requested By: Valarie Chi MD History of Present Illness: 52-year-old man with poorly controlled qgr-sgyqhua-icxobtiin diabetes presented with left foot infection. He's had multiple left foot surgeries by Dr. Reese in the past. Patient presented with fevers and chills which has subsided. Arterial ultrasound did not show any evidence of significant lesion. The patient underwent incision and drainage by Dr. Reese. Vascular surgery was consulted regarding adequacy of blood flow to the foot. Allergies/Medications Allergies: Coded Allergies: atorvastatin (UNKNOWN 02/09/18) simvastatin (UNKNOWN 02/09/18) Home Med List: Aripiprazole (Abilify) 10 MG TABLET 1 TAB PO DAILY MENTAL HEALTH (Reported) Benztropine Mesylate 1 MG TABLET 1 TAB PO BID MENTAL HEALTH (Reported) Citalopram Hydrobromide (Citalopram HBr) 20 MG TABLET 1.5 TAB PO DAILY MENTAL HEALTH (Reported) Dapagliflozin Propanediol (Farxiga) 5 MG TABLET 1 TAB PO DAILY DM (Reported) Gabapentin 400 MG CAPSULE 2 CAP PO TID PRN NERVE PAIN (Reported) Gemfibrozil 600 MG TABLET 1 TAB PO BID CHOLESTEROL (Reported) Metformin HCl (Metformin HCl ER) 500 MG TAB.ER.24H 2 TAB PO QAM DM (Reported) Metformin HCl (Glucophage XR) 500 MG TAB.ER.24H 1 TAB PO QPM DM (Reported) with food Mirtazapine 15 MG TABLET 1 TAB PO QHS PRN MENTAL HEALTH (Reported) Rosuvastatin Calcium (Crestor) 20 MG TABLET 1 TAB PO DAILY CHOLESTEROL ( Reported) Past History Medical History Blood Transfusion Hx: No Neurological: peripheral neuropathy EENT: allergies Cardiovascular: hypertension, hyperlipidemia Respiratory: NONE Gastrointestinal: NONE Hepatic: NONE Renal: NONE Musculoskeletal: NONE Psychiatric: anxiety, depression, substance abuse, Suicidal ideation Endocrine: diabetes Blood Disorders: anemia Cancer(s): NONE FERRY CAPTAIN/Reproductive: NONE Surgical History Pertinent Surgical History: status post amputation of the left fifth toe and resection of the left fourth metatarsal status post Tailor's bunionectomy right foot R FOOT DEBRIDEMENT Family History Relations & Conditions If Any: FATHER (Stomach cancer, CAD s/p CABG at age 70). MOTHER (TIA, CAD s/p CABG age 70). Psychosocial History Who Do You Live With? parent Services at Home: None Primary Language: Eritre[place] Smoking Status: Never Smoked ETOH Use: occasional use Illicit Drug Use: denies illicit drug use Functional Ability ADLs Independent: eating. Needs Assist: dressing, bathing. Ambulation: independent IADLs Independent: telephone. Needs Assist: housework, transportation. Review of Systems Review of Systems: Patient denies headache, dizziness, cough, palpitation, diarrhea or constipation Exam & Diagnostic Data Vital Signs and I&O Vital Signs Date Time Temp Pulse Resp B/P B/P Pulse O2 O2 Flow FiO2 Mean Ox Delivery Rate 02/10 0620 99.2 71 20 118/66 93 Nasal Cannula 02/09 2228 98.6 78 20 128/76 94 Nasal Cannula 02/09 1439 100.9 74 18 110/79 96 Intake & Output 02/10 1600 02/10 0800 02/10 0000 02/09 1600 02/09 0800 02/09 0000 Intake Total 1200 2000 1320 880 Output Total 400 300 480 875 950 Balance -400 900 -480 1125 370 880 Intake, IV 1200 1200 1200 400 Intake, Oral 800 120 480 Output, 250 Emesis Output, Urine 400 300 480 875 700 Patient 238 lb 238 lb Weight Weight Bed scale Bed scale Measurement Method Physical Exam: Patient is alert and oriented 3 Lungs: Clear to auscultation bilaterally Heart: Regular rate and rhythm Abdomen: Soft, nontender nondistended Extremities: Palpable femoral pulses bilaterally. The left foot is still. Feet are are warm to touch and pink. Assessment/Plan Assessment/Plan 52-year-old man with poorly controlled diabetes with chronic left foot wound status post multiple interventions presented with left foot infection and underwent I&D by Dr. Reese. He is on antibiotics. Arterial ultrasound did not show any evidence of significant arterial disease. He may need an angiogram in the future. For now, no vascular surgery intervention has been planned. Thank you for asking me to be involved in the care of this patient. Consult Acknowledgment - Thank you for your consult request. Attending MD Review Statement Attending Statement Attending MD Statement: examined this patient, discuss w/resident/PA/TAP PULLER
--- NOTE | 2018-02-10 13:51 | PN- Infect Dx ---
Subjective Subjective: MAXIMUM TEMPERATURE 100.9. He offers no complaints. Objective Last 24 Hrs of Vital Signs/I&O Vital Signs Date Time Temp Pulse Resp B/P B/P Pulse O2 O2 Flow FiO2 Mean Ox Delivery Rate 02/10 0620 99.2 71 20 118/66 93 Nasal Cannula 02/09 2228 98.6 78 20 128/76 94 Nasal Cannula 02/09 1439 100.9 74 18 110/79 96 Intake & Output 02/10 1600 02/10 0800 02/10 0000 Intake Total 1200 Output Total 400 300 480 Balance -400 900 -480 Intake, IV 1200 Output, Urine 400 300 480 Patient 239 lb 238 lb Weight Weight Bed scale Measurement Method Physical Exam Other Physical Findings: He appears comfortable in no acute distress Lungs are clear Heart regular rhythm with no murmur Extremities left foot dressing intact Results Last 24 Hours of Lab Results: Laboratory Tests 02/10 0818 Chemistry Sodium (137 - 145 mmol/L) 137 Potassium (3.5 - 5.1 mmol/L) 3.8 Chloride (98 - 107 mmol/L) 106 Carbon Dioxide (22 - 30 mmol/L) 22 Anion Gap (5 - 16) 9 BUN (9 - 20 mg/dL) 17 Creatinine (0.7 - 1.2 mg/dL) 0.8 Estimated GFR (>60 ml/min) > 60 BUN/Creatinine Ratio (7 - 25 %) 21.3 Hematology CBC w Diff NO MAN DIFF REQ WBC (4.8 - 10.8 /CUMM) 6.0 RBC (4.70 - 6.10 /CUMM) 3.53 L Hgb (14.0 - 18.0 G/DL) 9.4 L Hct (42 - 52 %) 28.1 L MCV (80.0 - 94.0 FL) 79.6 L MCH (27.0 - 31.0 PG) 26.6 L MCHC (33.0 - 37.0 G/DL) 33.4 RDW (11.5 - 14.5 %) 16.7 H Plt Count (130 - 400 /CUMM) 277 MPV (7.4 - 10.4 FL) 7.9 Gran % (42.2 - 75.2 %) 64.8 Lymphocytes % (20.5 - 51.1 %) 19.6 L Monocytes % (1.7 - 9.3 %) 9.7 H Eosinophils % (0 - 5 %) 5.3 H Basophils % (0.0 - 2.0 %) 0.6 Absolute Granulocytes (1.4 - 6.5 /CUMM) 3.9 Absolute Lymphocytes (1.2 - 3.4 /CUMM) 1.2 Absolute Monocytes (0.10 - 0.60 /CUMM) 0.6 Absolute Eosinophils (0.0 - 0.7 /CUMM) 0.3 Absolute Basophils (0.0 - 0.2 /CUMM) 0 Last 24 Hours of Sree Results: Blood cultures 2 February 08 positive for MRSA and Klebsiella oxytoca resistant to Ampicillin and Cefazolin OR culture February 08 labeled right foot bone positive for MRSA and Klebsiella oxytoca resistant to Ampicillin and Cefazolin Blood cultures 2 February 10 pending Recent Imaging Studies: Bilateral lower extremity arterial Dopplers February 09 reveal no evidence of a hemodynamically significant stenosis Assessment/Plan ID Impression: Polymicrobial sepsis, with MRSA and Klebsiella isolated from the blood and OR cultures, now 2 days status post I&D of a left leg infection/necrotizing fasciitis and bone biopsy for what is most likely a chronic osteomyelitis, given the nonhealing wound on his left foot for the past 2 years. He has improved, with temperatures lower grade and with white blood cell count normal on Vancomycin, Flagyl and Ceftriaxone, which can be continued pending final cultures. He is scheduled for return to the OR today for further debridement. There has apparently been discussion in the past regarding possible need for BKA , and this will need to be considered. Vascular surgery evaluation noted, with consideration of possible angiogram in the future. Suggestion: 1. Await return to the OR later today 2. Echocardiogram 3. Further management of his left foot, with possible BKA, per Podiatry/ Vascular surgery 4. Vancomycin trough level on February 11 5. Follow-up final OR cultures 6. Continue Vancomycin, Flagyl and Ceftriaxone pending above
[2018-02-10 14:19] VITALS: BP 135/75
--- NOTE | 2018-02-10 17:36 | Operative Report ---
Operative/Inv Procedure Report Surgery Date: 02/10/18 Name of Procedure: 1 open incision and drainage deep to the D fashion with exposure of the flexor tendon and tendon sheath multiple sites left ankle 2 debridement of necrotic bone left foot 3 intraoperative administration of negative pressure wound therapy 4 excisional debridement Pre-Operative Diagnosis: 1 open necrotic wound left ankle 2 osteomyelitis left foot 3 diabetic peripheral neuropathy Post-Operative Diagnosis: The same Estimated Blood Loss: less than 50ml Surgeon/Proofsheet Corrector: YOVANA FLORES DPM Anesthesia: moderate sedation, block Operative/Procedure Note Note: After obtaining informed consent the patient was brought to the operating room and placed on the operating table in the supine position. The patient isn't securely fastened to the operating table utilizing safety belt. After administration of IV sedation, 10 mL of 0.5% Marcaine plain was obtained about the patient's left ankle. The left foot and ankle then scrubbed prepped and draped in usual aseptic manner. Attention directed lateral aspect left ankle. A large full-thickness chronic was identified. A 15 blade visualized sharply revised skin margins. It 6 was then carried down deep to the deep fascia with exposure of the flexor tendon tension multiple sites, both proximally and distally. All necrotic nonviable infected tissue sharply evacuated wound bed. Necrotic bone identified at the plantar lateral proximal foot was harvested for pathologic inspection. Nipple was then irrigated with 3 L of normal sterile saline fissure 50,000 units of bacitracin. Following this, the foot was redraped and surgeon's top was changed clean gloves. Any bleeding vessels identified were cauterized or Ligated as encountered. Negative pressure wound therapy was then placed about the wound followed by the application of Kerlix and Coban. The patient is noted tolerate both procedure and anesthesia well and the patient was transported from the operating room to recovery with vital signs stable.
[2018-02-10 23:07] VITALS: BP 129/75
[2018-02-11 01:14] VITALS: BP 128/74
[2018-02-11 06:52] VITALS: BP 114/70
--- NOTE | 2018-02-11 06:53 | PN- Housestaff ---
Vonda PATINO,Stef 02/11/18 0652: Subjective Follow-up For: Necrotizing fasciitis of Left foot s/p repeat debridement POD # 1 Poorly controlled diabetes Severe diabetic neuropathy Subjective: Patient was seen and examined bedside. He had no acute events overnight. He reports significant pain this morning in his left foot radiating up his left leg and decreased appetite. He tolerated his procedure yesterday well and currently denies any nausea, vomiting, fever, chills, chest pain, shortness of breath. Review of Systems Constitutional: Reports: no symptoms. EENTM: Reports: no symptoms. Cardiovascular: Reports: no symptoms. Respiratory: Reports: no symptoms. Gastrointestinal: Reports: no symptoms. Genitourinary: Reports: no symptoms. Musculoskeletal: Reports: joint pain. Objective Last 24 Hrs of Vital Signs/I&O Vital Signs Date Time Temp Pulse Resp B/P B/P Pulse O2 O2 Flow FiO2 Mean Ox Delivery Rate 02/11 0114 98.4 74 18 128/74 93 Room Air 02/10 2307 98.4 74 18 129/75 92 Room Air 02/10 1419 100.1 67 18 135/75 98 Intake & Output 02/11 0800 02/11 0000 02/10 1600 Intake Total 1000 400 250 Output Total 650 200 700 Balance 350 200 -450 Intake, IV 800 200 250 Intake, Oral 200 200 Number 0 Bowel Movements Output, Urine 650 200 700 Patient 239 lb Weight Physical Exam General Appearance: Alert, Oriented X3, Cooperative, Mild Distress Skin Temp/Moisture Exam: Warm/Dry Sepsis Skin Exam (color): Normal for Ethnicity Cardiovascular: Regular Rate, Normal S1, Normal S2 Lungs: Clear to Auscultation, Normal Air Movement Abdomen: Normal Bowel Sounds, Soft, No Tenderness Extremities: L foot is wrapped in surgical dressing, wound vac is in place, no TTP or swelling of the L calf Current Medications: Current Medications Sig/Rafaela Start time Last Medication Dose Route Stop Time Status Admin Acetaminophen 650 MG Q6P PRN 02/08 1545 AC 02/09 PO 1229 Acetaminophen 1,000 MG Q6P PRN 02/08 1545 AC 02/09 IV 0039 Aripiprazole 10 MG DAILY 02/09 1047 AC 02/10 PO 0901 Benztropine Mesylate 1 MG BID 02/09 1047 AC 02/10 PO 2123 Ceftriaxone Sodium 2,000 MG DAILY@1700 02/09 1700 AC 02/10 IV 1954 Citalopram 30 MG DAILY 02/09 1047 AC 02/10 Hydrobromide PO 0901 Dextrose/Sodium 1,000 ML Q13H 02/10 0600 AC 02/10 Chloride IV 2124 Fentanyl Citrate 100 MCG .STK-MED ONE 02/10 1553 DC IM 02/10 1554 Gabapentin 800 MG TID PRN 02/09 1030 AC 02/09 PO 1509 Gemfibrozil 600 MG BID 02/09 1047 AC 02/10 PO 2123 Hydromorphone HCl 0.5 MG Q4P PRN 02/08 1545 AC 02/11 IV 0548 Insulin Aspart 0 TIDAC/HS 02/10 2100 DC SC Insulin Human Regular 0 Q6 02/09 2359 DC 02/10 SC 1200 Meperidine HCl 50 MG .STK-MED ONE 02/10 1743 DC IM 02/10 1744 Metronidazole 500 MG IQ8 02/10 0000 02/11 N/A 1 UNIT IV 0010 Midazolam HCl 2 MG .STK-MED ONE 02/10 1554 DC IM 02/10 1555 Mirtazapine 15 MG AT BEDTIME PRN 02/09 2200 02/10 PO 2123 Morphine Sulfate 4 MG .STK-MED ONE 02/10 1839 DC IM 02/10 1840 Morphine Sulfate 4 MG .STK-MED ONE 02/10 1743 DC IM 02/10 1744 Ondansetron HCl 4 MG Q6P PRN 02/08 2245 IV Rosuvastatin Calcium 20 MG 1700 02/09 1700 02/10 PO 1953 Sodium Chloride 1,000 ML Q13H 02/08 1545 TX 02/10 IV 0918 Vancomycin HCl 1,500 MG Q12H 02/09 0130 02/11 Dextrose/Water 250 ML IV 0118 Last 24 Hrs of Lab/Sree Results Last 24 Hrs of Labs/Mics: Laboratory Tests 02/10/18 0818: Anion Gap 9, Estimated GFR > 60, BUN/Creatinine Ratio 21.3, CBC w Diff NO MAN DIFF REQ, RBC 3.53 L, MCV 79.6 L, MCH 26.6 L, MCHC 33.4, RDW 16.7 H, MPV 7.9 , Gran % 64.8, Lymphocytes % 19.6 L, Monocytes % 9.7 H, Eosinophils % 5.3 H, Basophils % 0.6, Absolute Granulocytes 3.9, Absolute Lymphocytes 1.2, Absolute Monocytes 0.6, Absolute Eosinophils 0.3, Absolute Basophils 0 Microbiology 02/10 1120 BLOOD: Blood Culture - RECD 02/10 0818 BLOOD: Blood Culture - RECD Assessment/Plan Assessment: Patient is a 52-year-old male with past medical history of poorly controlled diabetes, chronic nonhealing ulcer on the plantar aspect of the left foot, diabetic neuropathy, osteomyelitis and MRSA. He presents with complaints of breakdown of his chronic nonhealing ulcer, with serous drainage, worsening erythema, increased warmth and severe pain of the left foot restarted a few days ago. He has had a history of recurrent osteomyelitis and cellulitis of his chronic left foot wound but for some time now the wound had begun to heal and he wore a boot to protect his foot and he follows regularly with Dr. Reese. However, a few days ago Dr. Reese removed the boot to give him some rest off it but this lead to a very rapid breakdown and infection of the ulcer. He had fevers at home Tmax 103 in the ED this morning. He denies chest pain, shortness of breath, nausea or vomiting. He has a hx of MRSA. Assessment #Necrotizing fasciitis of Left foot s/p debridement Patient return to OR yesterday for I&D and further debridement. He tolerated the procedure well or he is having significant pain this morning. -Follow-up final cultures and sensitivities from our -We'll pursue echo, discussed case with Dr. Beltre -Continue vancomycin, and ceftriaxone, DC Flagyl -ID recommendations appreciated -Follow podiatry recommendations postoperatively -Vancomycin trough was ordered before the sixth dose, however it was not drawn. Will draw vancomycin trough prior to seventh dose on 02/12/18 at 0100 #Poorly controlled diabetes Hgb A1c 8.9. Blood sugars have been well controlled on this admission -Continue current NovoLog sliding scale -Endocrine input appreciated #Severe diabetic neuropathy -Continue gabapentin 800mg TID -PT consult #Microcytic anemia s/p surgery Patient's initial drop in H/H could be dilutional as it has remained stable today -follow-up stool guaiac, patient has been constipated #Chronic medical conditions-HTN, HLD, Depression -continue home medications Lovenox for DVT prophylaxis diabetic diet FC Problem List: 1. Necrotizing fasciitis Pain Ratin Pain Location: L foot Pain Goal: Remain pain free Pain Plan: pain pathway Tomorrow's Labs & Rationales: vanc trough overnight Valarie Chi MD 02/11/18 1253: Attending MD Review Statement Attending Statement Attending MD Statement: examined this patient, discuss w/resident/PA/CLINICAL ACCOUNT LIAISON, agreed w/resident/PA/CLINICAL ACCOUNT LIAISON, reviewed EMR data (avail) Attending Assessment/Plan: Continue to follow ID and podiatry recommendations, continue antibiotics, local wound care, follow cultures
[2018-02-11 09:01] LABS: ABSOLUTE BASOPHIL COUNT 0 /CUMM (0.0-0.2); ABSOLUTE EOSINOPHIL COUNT 0.4 /CUMM (0.0-0.7); ABSOLUTE GRANULOCYTE CT 4.3 /CUMM (1.4-6.5); ABSOLUTE LYMPH COUNT 1.3 /CUMM (1.2-3.4); ABSOLUTE MONOCYTE COUNT 0.7 /CUMM (0.10-0.60); BASOPHIL % 0.6 % (0.0-2.0); EOSINOPHIL % 6.3 % (0-5); GRANULOCYTE % 63.3 % (42.2-75.2); HEMATOCRIT 27.2 % (42-52); MEAN CORPUSCULAR HGB 26.7 PG (27.0-31.0); MEAN CORPUSCULAR HGB CONC 33.3 G/DL (33.0-37.0); MEAN CORPUSCULAR VOLUME 80.1 FL (80.0-94.0); PLATELET COUNT 270 /CUMM (130-400); RBC DISTRIBUTION WIDTH 16.3 % (11.5-14.5); RED BLOOD CELL CT 3.39 /CUMM (4.70-6.10); WHITE BLOOD CELL COUNT 6.7 /CUMM (4.8-10.8)
--- NOTE | 2018-02-11 11:53 | PN- Diabetes ---
Assessment/Plan Diabetes Assessment: Patient is a 52-year-old male with past medical history of uncontrolled diabetes type 2, chronic nonhealing ulcer of left foot, diabetic neuropathy, osteomyelitis status post amputation of left 5th toe. He was admitted for necrotizing fasciitis band gangrene of left foot with positive blood culture of gram positive cocci. He underwent surgery for debrivement. He is on Novolog coverage before meals and Novolog coverage at bedtime. His FSGs were 106, 121, 113 and 122 Plan: ---continue the current treatment for now; ---monitor FSGs. will follow. Subjective Subjective: He feels okay. Objective Last 24 Hrs of Vital Signs/I&O Vital Signs Date Time Temp Pulse Resp B/P B/P Pulse O2 O2 Flow FiO2 Mean Ox Delivery Rate 02/11 0700 Room Air 02/11 0652 98.0 69 20 114/70 92 Room Air 02/11 0114 98.4 74 18 128/74 93 Room Air 02/10 2307 98.4 74 18 129/75 92 Room Air 02/10 1419 100.1 67 18 135/75 98 Intake & Output 02/11 1600 02/11 0800 02/11 0000 Intake Total 1000 400 Output Total 650 200 Balance 350 200 Intake, IV 800 200 Intake, Oral 200 200 Output, Urine 650 200 Patient 237 lb Weight Findings Pertinent Lab/Sree Results: Laboratory Tests 02/11 0800 Hematology CBC w Diff NO MAN DIFF REQ WBC (4.8 - 10.8 /CUMM) 6.7 RBC (4.70 - 6.10 /CUMM) 3.39 L Hgb (14.0 - 18.0 G/DL) 9.1 L Hct (42 - 52 %) 27.2 L MCV (80.0 - 94.0 FL) 80.1 MCH (27.0 - 31.0 PG) 26.7 L MCHC (33.0 - 37.0 G/DL) 33.3 RDW (11.5 - 14.5 %) 16.3 H Plt Count (130 - 400 /CUMM) 270 MPV (7.4 - 10.4 FL) 8.0 Gran % (42.2 - 75.2 %) 63.3 Lymphocytes % (20.5 - 51.1 %) 20.0 L Monocytes % (1.7 - 9.3 %) 9.8 H Eosinophils % (0 - 5 %) 6.3 H Basophils % (0.0 - 2.0 %) 0.6 Absolute Granulocytes (1.4 - 6.5 /CUMM) 4.3 Absolute Lymphocytes (1.2 - 3.4 /CUMM) 1.3 Absolute Monocytes (0.10 - 0.60 /CUMM) 0.7 H Absolute Eosinophils (0.0 - 0.7 /CUMM) 0.4 Absolute Basophils (0.0 - 0.2 /CUMM) 0
--- NOTE | 2018-02-11 14:01 | PN- Infect Dx ---
Subjective Subjective: MAXIMUM TEMPERATURE 100.1. He notes some discomfort in the left foot. Objective Last 24 Hrs of Vital Signs/I&O Vital Signs Date Time Temp Pulse Resp B/P B/P Pulse O2 O2 Flow FiO2 Mean Ox Delivery Rate 02/11 0700 Room Air 02/11 0652 98.0 69 20 114/70 92 Room Air 02/11 0114 98.4 74 18 128/74 93 Room Air 02/10 2307 98.4 74 18 129/75 92 Room Air 02/10 1419 100.1 67 18 135/75 98 Intake & Output 02/11 1600 02/11 0800 02/11 0000 Intake Total 1000 400 Output Total 650 200 Balance 350 200 Intake, IV 800 200 Intake, Oral 200 200 Output, Urine 650 200 Patient 237 lb Weight Physical Exam Other Physical Findings: He appears comfortable in no acute distress Lungs are clear Heart regular rhythm with no murmur Extremities left foot dressing intact, with wound VAC in place Results Last 24 Hours of Lab Results: Laboratory Tests 02/11 08 Hematology CBC w Diff NO MAN DIFF REQ WBC (4.8 - 10.8 /CUMM) 6.7 RBC (4.70 - 6.10 /CUMM) 3.39 L Hgb (14.0 - 18.0 G/DL) 9.1 L Hct (42 - 52 %) 27.2 L MCV (80.0 - 94.0 FL) 80.1 MCH (27.0 - 31.0 PG) 26.7 L MCHC (33.0 - 37.0 G/DL) 33.3 RDW (11.5 - 14.5 %) 16.3 H Plt Count (130 - 400 /CUMM) 270 MPV (7.4 - 10.4 FL) 8.0 Gran % (42.2 - 75.2 %) 63.3 Lymphocytes % (20.5 - 51.1 %) 20.0 L Monocytes % (1.7 - 9.3 %) 9.8 H Eosinophils % (0 - 5 %) 6.3 H Basophils % (0.0 - 2.0 %) 0.6 Absolute Granulocytes (1.4 - 6.5 /CUMM) 4.3 Absolute Lymphocytes (1.2 - 3.4 /CUMM) 1.3 Absolute Monocytes (0.10 - 0.60 /CUMM) 0.7 H Absolute Eosinophils (0.0 - 0.7 /CUMM) 0.4 Absolute Basophils (0.0 - 0.2 /CUMM) 0 Last 24 Hours of Sree Results: Blood cultures February 10 negative Assessment/Plan ID Impression: Stable, status post further debridement of the necrotic bone of the left foot and I&D to the deep fascia, of the left ankle yesterday, with placement of a wound VAC. He remains on Vancomycin, Flagyl and Ceftriaxone for polymicrobial osteomyelitis/sepsis, with MRSA and Klebsiella isolated from the blood and OR cultures, with temperatures lower grade and white blood cell count normal. Have discussed with Podiatry, who feels that he requires a BKA, and this will need to be discussed with vascular surgery. The duration of therapy for his MRSA bacteremia will depend on the decision regarding amputation as well as his echocardiogram. Suggestion: 1. Vascular surgery follow-up regarding angiogram and possible BKA 2. Echocardiogram 3. Vancomycin trough level with his next dose 4. Discontinue Flagyl 5. Continue Vancomycin and Ceftriaxone
[2018-02-11 15:01] VITALS: BP 110/62
[2018-02-11 22:52] VITALS: BP 120/75
[2018-02-12 06:50] VITALS: BP 110/66
--- NOTE | 2018-02-12 07:07 | PN- Housestaff ---
Vonda PATINO,Stef 02/12/18 0706: Subjective Follow-up For: Necrotizing fasciitis of Left foot s/p repeat debridement POD # 2 Poorly controlled diabetes Severe diabetic neuropathy Subjective: Patient was seen and examined at bedside. He is resting comfortably. His left foot pain was better controlled today. He was afebrile overnight. He has no new complaints and denies any nausea, vomiting, fever, chills, chest and shortness of breath. Review of Systems Constitutional: Reports: no symptoms. EENTM: Reports: no symptoms. Cardiovascular: Reports: no symptoms. Respiratory: Reports: no symptoms. Gastrointestinal: Reports: no symptoms. Genitourinary: Reports: no symptoms. Musculoskeletal: Reports: see HPI, joint pain (L foot). Objective Last 24 Hrs of Vital Signs/I&O Vital Signs Date Time Temp Pulse Resp B/P B/P Pulse O2 O2 Flow FiO2 Mean Ox Delivery Rate 02/12 0650 97.9 61 20 110/66 95 Room Air 02/11 2252 98.2 63 120/75 95 02/11 1600 Room Air 02/11 1501 97.6 63 20 110/62 94 Intake & Output 02/12 0800 02/12 0000 02/11 1600 Intake Total 300 800 250 Output Total 250 1500 200 Balance 50 -700 50 Intake, IV 300 250 Intake, Oral 800 Number 0 Bowel Movements Output, Urine 250 1500 200 Physical Exam General Appearance: Alert, Oriented X3, Cooperative, No Acute Distress Skin Temp/Moisture Exam: Warm/Dry Sepsis Skin Exam (color): Normal for Ethnicity Cardiovascular: Regular Rate, Normal S1, Normal S2, No Murmurs Lungs: Clear to Auscultation, Normal Air Movement Abdomen: Normal Bowel Sounds, Soft, No Tenderness Extremities: L foot with surgical dressing and wound vac in place Current Medications: Current Medications Sig/Rafaela Start time Last Medication Dose Route Stop Time Status Admin Acetaminophen 650 MG Q6P PRN 02/08 1545 AC 02/09 PO 1229 Acetaminophen 1,000 MG Q6P PRN 02/08 1545 AC 02/11 IV 1141 Aripiprazole 10 MG DAILY 02/09 1047 AC 02/11 PO 0801 Benztropine Mesylate 1 MG BID 02/09 1047 AC 02/11 PO 2031 Ceftriaxone Sodium 2,000 MG DAILY@1700 02/09 1700 AC 02/11 IV 1702 Citalopram 30 MG DAILY 02/09 1047 AC 02/11 Hydrobromide PO 0801 Dextrose/Sodium 1,000 ML Q13H 02/10 0600 DC 02/11 Chloride IV 0801 Docusate Sodium 100 MG DAILY 02/11 1720 AC PO Gabapentin 800 MG TID PRN 02/09 1030 AC 02/11 PO 0800 Gemfibrozil 600 MG BID 02/09 1047 AC 02/11 PO 2031 Hydromorphone HCl 0.5 MG Q4P PRN 02/08 1545 AC 02/12 IV 0430 Insulin Aspart 0 TIDAC/HS 02/11 1200 AC 02/11 SC 1702 Insulin Human Regular 2 UNITS ONCE ONE 02/11 0830 DC SC 02/11 0831 Metronidazole 500 MG IQ8 02/10 0000 DC 02/11 N/A 1 UNIT IV 0800 Mirtazapine 15 MG AT BEDTIME PRN 02/09 2200 AC 02/10 PO 2123 Ondansetron HCl 4 MG Q6P PRN 02/08 2245 AC IV Rosuvastatin Calcium 20 MG 1700 02/09 1700 AC 02/11 PO 1702 Senna 187 MG AT BEDTIME 02/11 2200 AC PO Vancomycin HCl 1,500 MG Q12H 02/09 0130 AC 02/12 Dextrose/Water 250 ML IV 0138 Last 24 Hrs of Lab/Sree Results Last 24 Hrs of Labs/Mics: Laboratory Tests 02/12/18 0045: Vancomycin Trough 9.8 L 02/11/18 1230: Vancomycin Trough Cancelled 02/11/18 0800: CBC w Diff NO MAN DIFF REQ, RBC 3.39 L, MCV 80.1, MCH 26.7 L, MCHC 33.3, RDW 16.3 H, MPV 8.0, Gran % 63.3, Lymphocytes % 20.0 L, Monocytes % 9.8 H, Eosinophils % 6.3 H, Basophils % 0.6, Absolute Granulocytes 4.3, Absolute Lymphocytes 1.3, Absolute Monocytes 0.7 H, Absolute Eosinophils 0.4, Absolute Basophils 0 Assessment/Plan Assessment: Patient is a 52-year-old male with past medical history of poorly controlled diabetes, chronic nonhealing ulcer on the plantar aspect of the left foot, diabetic neuropathy, osteomyelitis and MRSA. He presents with complaints of breakdown of his chronic nonhealing ulcer, with serous drainage, worsening erythema, increased warmth and severe pain of the left foot restarted a few days ago. He has had a history of recurrent osteomyelitis and cellulitis of his chronic left foot wound but for some time now the wound had begun to heal and he wore a boot to protect his foot and he follows regularly with Dr. Reese. However, a few days ago Dr. Reese removed the boot to give him some rest off it but this lead to a very rapid breakdown and infection of the ulcer. He had fevers at home Tmax 103 in the ED this morning. He denies chest pain, shortness of breath, nausea or vomiting. He has a hx of MRSA. Assessment #Necrotizing fasciitis of Left foot s/p debridement patient afebrile with no leukocytosis. -Follow-up final cultures and sensitivities from OR -Follow-up results of echo -Based on low vent from last night will increase vancomycin to 2 g twice a day, continue ceftriaxone. -Pursue PICC line placement and discharge planning - Patient will need a 4 week course of antibiotics -ID recommendations appreciated -Patient will need vascular surgery follow-up for angiogram #Poorly controlled diabetes Hgb A1c 8.9. Blood sugars have been well controlled on this admission -Continue current NovoLog sliding scale -Endocrine input appreciated #Severe diabetic neuropathy -Continue gabapentin 800mg TID -PT consult #Microcytic anemia s/p surgery Patient's initial drop in H/H could be dilutional as it has remained stable today -follow-up stool guaiac, patient has been constipated #Chronic medical conditions-HTN, HLD, Depression -continue home medications Lovenox for DVT prophylaxis diabetic diet FC Problem List: 1. MRSA bacteremia 2. Necrotizing fasciitis Pain Ratin Pain Location: L foot Pain Goal: Pain 4 or less Pain Plan: pain pathway Tomorrow's Labs & Rationales: Valarie [place] MD 02/12/18 1358: Attending MD Review Statement Attending Statement Attending MD Statement: examined this patient, discuss w/resident/PA/FORMULA MIXER, agreed w/resident/PA/FORMULA MIXER, reviewed EMR data (avail) Attending Assessment/Plan: 52M PMH Type 2 insulin dependent diabetes, peripheral neuropathy, s/p multiple surgeries on the left foot including left fifth toe amputation, resection of the left fourth metatarsal bone and distal cuboid of the left foot, with a nonhealing left foot wound since his last surgery 15 months prior presenting with worsening of the left foot with erythema and drainage with necrotizing fasciitis and gas gangrene, now s/p incision and drainage x2, most recently on , with OR cultures growing mRSA and Klebsiella. 1. mRSA and Klebsiella acute osteomyelitis of the left foot 2. Necrotizing fasciitis and gas gangrene of the left foot 3. Sepsis due to above (resolved) 4. Uncontrolled Type 2 IDDM 5. Diabetic peripheral polyneuropathy Plan - Continue on general medicine - Continue Vancomycin and Ceftriaxone - Will pursue PICC - Follow ID, podiatry, vascular recommendations - Outpatient follow up for angiogram - Continue home medications - DVT PPx
[2018-02-12 09:03] LABS: ABSOLUTE BASOPHIL COUNT 0 /CUMM (0.0-0.2); ABSOLUTE EOSINOPHIL COUNT 0.5 /CUMM (0.0-0.7); ABSOLUTE GRANULOCYTE CT 4.5 /CUMM (1.4-6.5); ABSOLUTE LYMPH COUNT 1.3 /CUMM (1.2-3.4); ABSOLUTE MONOCYTE COUNT 0.5 /CUMM (0.10-0.60); BASOPHIL % 0.6 % (0.0-2.0); EOSINOPHIL % 7.1 % (0-5); GRANULOCYTE % 65.2 % (42.2-75.2); HEMATOCRIT 29.3 % (42-52); MEAN CORPUSCULAR HGB 26.5 PG (27.0-31.0); MEAN CORPUSCULAR HGB CONC 32.9 G/DL (33.0-37.0); MEAN CORPUSCULAR VOLUME 80.3 FL (80.0-94.0); PLATELET COUNT 300 /CUMM (130-400); RBC DISTRIBUTION WIDTH 16.7 % (11.5-14.5); RED BLOOD CELL CT 3.65 /CUMM (4.70-6.10); WHITE BLOOD CELL COUNT 6.9 /CUMM (4.8-10.8)
--- NOTE | 2018-02-12 14:26 | PN- Infect Dx ---
Subjective Subjective: Afebrile. He complains of some discomfort in the left foot Objective Last 24 Hrs of Vital Signs/I&O Vital Signs Date Time Temp Pulse Resp B/P B/P Pulse O2 O2 Flow FiO2 Mean Ox Delivery Rate 02/12 0650 97.9 61 20 110/66 95 Room Air 02/11 2252 98.2 63 120/75 95 02/11 1600 Room Air 02/11 1501 97.6 63 20 110/62 94 Intake & Output 02/12 1600 02/12 0800 02/12 0000 Intake Total 400 800 Output Total 929 346 4061 Balance -250 150 -700 Intake, IV 300 Intake, Oral 100 800 Number 1 0 Bowel Movements Output, Urine [phone] Patient 248 lb Weight Weight Bed scale Measurement Method Physical Exam Other Physical Findings: He appears comfortable in no acute distress Extremities left foot dressing intact, with wound VAC in place Results Last 24 Hours of Lab Results: Laboratory Tests 02/12 02/12 02/12 1146 0740 0045 Hematology CBC w Diff NO MAN DIFF REQ WBC (4.8 - 10.8 /CUMM) 6.9 RBC (4.70 - 6.10 /CUMM) 3.65 L Hgb (14.0 - 18.0 G/DL) 9.7 L Hct (42 - 52 %) 29.3 L MCV (80.0 - 94.0 FL) 80.3 MCH (27.0 - 31.0 PG) 26.5 L MCHC (33.0 - 37.0 G/DL) 32.9 L RDW (11.5 - 14.5 %) 16.7 H Plt Count (130 - 400 /CUMM) 300 MPV (7.4 - 10.4 FL) 8.0 Gran % (42.2 - 75.2 %) 65.2 Lymphocytes % (20.5 - 51.1 %) 19.3 L Monocytes % (1.7 - 9.3 %) 7.8 Eosinophils % (0 - 5 %) 7.1 H Basophils % (0.0 - 2.0 %) 0.6 Absolute Granulocytes (1.4 - 6.5 /CUMM) 4.5 Absolute Lymphocytes (1.2 - 3.4 /CUMM) 1.3 Absolute Monocytes (0.10 - 0.60 /CUMM) 0.5 Absolute Eosinophils (0.0 - 0.7 /CUMM) 0.5 Absolute Basophils (0.0 - 0.2 /CUMM) 0 ESR Westergren Pending Toxicology Vancomycin Trough (10.0 - 20.0 ug/mL) 9.8 L Last 24 Hours of Sree Results: Blood cultures February 10 negative Assessment/Plan ID Impression: Stable, with temperatures and white blood cell count normal, status post further debridement of necrotic bone of the left foot and I&D to the deep fascia of the left ankle 2 days ago, with placement of a wound VAC. He remains on Vancomycin and Ceftriaxone for osteomyelitis secondary to MRSA and Klebsiella, isolated from the blood and OR cultures. His Vancomycin trough level is relatively low and, therefore, his dose can be increased. Have discussed with Vascular surgery , who plans to do an angiogram at some point. It is felt by Podiatry that he will require a BKA and Vascular Surgery input regarding this will be necessary. Suggestion: 1. Await angiogram and ultimate decision regarding BKA per Vascular Surgery 2. Follow-up echocardiogram 3. Would check a postop baseline ESR 4. Proceed with placement of a PICC 5. Increase Vancomycin to 2 g IV every 12 hours and recheck a Vancomycin trough level with the 5th dose 6. Continue Ceftriaxone
[2018-02-12 15:09] VITALS: BP 125/78
--- NOTE | 2018-02-12 15:35 | PN- Diabetes ---
Assessment/Plan Diabetes Assessment: Patient is a 52-year-old male with past medical history of uncontrolled diabetes type 2, chronic nonhealing ulcer of left foot, diabetic neuropathy, osteomyelitis status post amputation of left 5th toe. He was admitted for necrotizing fasciitis band gangrene of left foot with positive blood culture of gram positive cocci. He underwent surgery for debrivement. He is on Novolog coverage before meals and Novolog coverage at bedtime. His FSGs were 122, 183, 152, 139 and 126. Plan: ---continue the current treatment for now; ---monitor FSGs. will follow. Subjective Subjective: His glucose level has been stable. Objective Last 24 Hrs of Vital Signs/I&O Vital Signs Date Time Temp Pulse Resp B/P B/P Pulse O2 O2 Flow FiO2 Mean Ox Delivery Rate 02/12 1509 98.8 68 18 125/78 96 02/12 0650 97.9 61 20 110/66 95 Room Air 02/11 2252 98.2 63 120/75 95 02/11 1600 Room Air Intake & Output 02/12 1600 02/12 0800 02/12 0000 Intake Total 1300 400 800 Output Total 607 173 3433 Balance 750 150 -700 Intake, IV 500 300 Intake, Oral 800 100 800 Number 1 0 Bowel Movements Output, Urine [phone] Patient 248 lb Weight Weight Bed scale Measurement Method Findings Pertinent Lab/Sree Results: Laboratory Tests 02/12 02/12 02/12 1146 0740 0045 Hematology CBC w Diff NO MAN DIFF REQ WBC (4.8 - 10.8 /CUMM) 6.9 RBC (4.70 - 6.10 /CUMM) 3.65 L Hgb (14.0 - 18.0 G/DL) 9.7 L Hct (42 - 52 %) 29.3 L MCV (80.0 - 94.0 FL) 80.3 MCH (27.0 - 31.0 PG) 26.5 L MCHC (33.0 - 37.0 G/DL) 32.9 L RDW (11.5 - 14.5 %) 16.7 H Plt Count (130 - 400 /CUMM) 300 MPV (7.4 - 10.4 FL) 8.0 Gran % (42.2 - 75.2 %) 65.2 Lymphocytes % (20.5 - 51.1 %) 19.3 L Monocytes % (1.7 - 9.3 %) 7.8 Eosinophils % (0 - 5 %) 7.1 H Basophils % (0.0 - 2.0 %) 0.6 Absolute Granulocytes (1.4 - 6.5 /CUMM) 4.5 Absolute Lymphocytes (1.2 - 3.4 /CUMM) 1.3 Absolute Monocytes (0.10 - 0.60 /CUMM) 0.5 Absolute Eosinophils (0.0 - 0.7 /CUMM) 0.5 Absolute Basophils (0.0 - 0.2 /CUMM) 0 ESR Westergren Pending Toxicology Vancomycin Trough (10.0 - 20.0 ug/mL) 9.8 L
--- NOTE | 2018-02-12 17:23 | ECHOCARDIOGRAM REPORT ---
JOAN VÁZQUEZ Age: 52 : 1965 Gender: M Exam Date: 02/11/2018 16:24 Exam Location: [place] Ht (in): 68 Wt (lb): 237 BSA: 2.31 BP: 114 / 70 Ordering Physician: Stef Ferrari MD Referring Physician: Adam Beltre MD Technologist: Angelica Guadalupe [facility] Room Number: 234 Indications: INFECTIVE ENDOCARDITIS Rhythm: Sinus Technical Quality: Fair FINDINGS Left Ventricle Normal size left ventricle. Moderate concentric left ventricular hypertrophy. Normal left ventricular wall motion. Normal left ventricular ejection fraction visually estimated at >65%. "pseudonormal" filling pattern of the left ventricle for age (stage 2 diastolic dysfunction). Right Ventricle Normal right ventricular size and function. Right Atrium Normal right atrial size. Left Atrium Normal left atrial size. Mitral Valve Mild mitral annular calcification. Mitral valve mildly thickened. No evidence of vegetation on the mitral valve. Mild mitral regurgitation. Aortic Valve Trileaflet aortic valve. No evidence of vegetation on the aortic valve. No aortic valve stenosis or regurgitation. Tricuspid Valve Structurally normal tricuspid valve. No evidence of tricuspid valve vegetation. Trace tricuspid regurgitation. No evidence of pulmonary hypertension. Right ventricular systolic pressure estimated to be within the normal range at 10 mmHg. Pulmonic Valve Pulmonic valve not well visualized, grossly normal. No obvious vegetation on the pulmonic valve. Trace pulmonic regurgitation. Pericardium No pericardial effusion. Great Vessels Mild aortic dilatation at the level of the sinuses of valsalva (root). Mildly dilated proximal ascending aorta (tube). CONCLUSIONS Normal size left ventricle. Moderate concentric left ventricular hypertrophy. Normal left ventricular ejection fraction visually estimated at > 65%. "pseudonormal" filling pattern of the left ventricle for age (stage 2 diastolic dysfunction). Normal right ventricular size and function. Normal atrial size. No evidence of valvular vegetations. Mild mitral regurgitation. Trace tricuspid regurgitation. No evidence of pulmonary hypertension. Right ventricular systolic pressure estimated to be within the normal range at 10 mmHg. Trace pulmonic regurgitation. Mild aortic dilatation at the level of the sinuses of valsalva (root). Mildly dilated proximal ascending aorta (tube). Adam Beltre M.D. (Electronically Signed) Final Date: 12 February 2018 17:23 MEASUREMENTS (Male / Female) Normal Values 2D ECHO LV Diastolic Diameter PLAX 4.7 cm 4.2 - 5.9 / 3.9 - 5.3 cm LV Systolic Diameter PLAX 2.8 cm 2.1 - 4.0 cm LV Fractional Shortening PLAX 40.4 % 25 - 46 % LV Ejection Fraction 2D Teich 71.1 % IVS Diastolic Thickness 1.4 cm LVPW Diastolic Thickness 1.4 cm LV Relative Wall Thickness 0.6 RV Internal Dim ED PLAX 3.1 cm 1.9 - 3.8 cm LVOT Diameter 2.4 cm Aortic Root Diameter 3.8 cm LA Systolic Diameter LX 5.1 cm 3.0 - 4.0 / 2.7 - 3.8 cm LA Volume 44.0 cm 18 - 58 / 22 - 52 cm Ascending Aorta Diameter 3.6 cm DOPPLER AV Peak Velocity 121.0 cm/s AV Peak Gradient 5.9 mmHg AV Mean Velocity 77.3 cm/s AV Mean Gradient 3.0 mmHg AV Velocity Time Integral 24.3 cm LVOT Peak Velocity 82.7 cm/s LVOT Peak Gradient 2.7 mmHg LVOT Mean Velocity 51.3 cm/s LVOT Mean Gradient 1.0 mmHg LVOT Velocity Time Integral 17.9 cm LVOT Stroke Volume 81.0 cm AV Area Cont Eq vti 3.3 cm AV Area Cont Eq pk 3.1 cm MV Peak Velocity 102.0 cm/s MV Peak Gradient 4.2 mmHg MV Mean Velocity 50.1 cm/s MV Mean Gradient 1.0 mmHg Mitral E Point Velocity 85.9 cm/s Mitral A Point Velocity 55.8 cm/s Mitral E to A Ratio 1.5 MV PHT Velocity 107.0 cm/s MV Deceleration Hinds 591.0 cm/s MV Pressure Half Time 54.3 ms MV Area PHT 4.1 cm MV Deceleration Time 275.0 ms TR Peak Velocity 115.0 cm/s TR Peak Gradient 5.3 mmHg Right Atrial Pressure 5.0 mmHg Pulmonary Artery Systolic Pressu 10.3 mmHg Right Ventricular Systolic Press 10.3 mmHg PV Peak Velocity 102.0 cm/s PV Peak Gradient 4.2 mmHg PV Mean Velocity 79.6 cm/s PV Mean Gradient 3.0 mmHg PV Velocity Time Integral 29.6 cm LV E' Lateral Velocity 11.8 cm/s Mitral E to LV E' Lateral Ratio 7.3 LV E' Septal Velocity 8.6 cm/s Mitral E to LV E' Septal Ratio 10.0
--- NOTE | 2018-02-12 19:33 | Discharge Summary ---
Visit Information Visit Dates Admission Date: 02/08/18 Discharge Date: 02/20/18 Hospital Course Course Attending Physician: Valarie Chi MD Primary Care Physician: Stef Guthrie MD [facility] Course: This is a 52-year-old man with a history of diabetes, peripheral neuropathy, substance abuse, status post multiple surgeries on the left foot including left fifth toe amputation, resection of the left fourth metatarsal bone and distal cuboid of the left foot, with a nonhealing left foot wound since his last surgery 15 months prior to admission, followed weekly by Podiatry as an outpatient, Admitted on February 08 with a several day history of pain, erythema extending to the dorsum of the left foot, fevers and chills beginning 1 week after removal of the boot that had been in place for 6 months. On admission he was febrile to 103. Laboratory data revealed a white blood cell count of 14,000, glucose 199, BUN/creatinine 17 and 1.0, bilirubin 1.4. Urinalysis rare RBCs. Chest x-ray was negative. X-ray of the left foot revealed erosion along the lateral aspect of the foot involving the cuboid and anterior calcaneus; neuropathic changes in the midfoot; ulceration on the plantar aspect of the foot with extensive air dissection into the lower leg along the fibula, concerning for fasciitis. CT of the left leg revealed extensive soft tissue edema and soft tissue air involving the plantar surface of the midfoot and extending along the lateral malleolus proximally into the distal left lower leg; neuropathic joint with bony fragmentation and cystic changes and spurring throughout the hind and midfoot and at the ankle joint, with periostitis involving the distal tibia and fibula. Assessment #Sepsis 2/2 necrotizing fasciitis of Left foot + MRSA and Kliebsiella osteomyelitis He was begun on Unasyn and Vancomycin and was taken to the OR for an I&D to the deep fascia and a bone biopsy. ESR 104. Blood cultures 2 and OR wound cultures were reported positive for MRSA and Kliebsiella oxytoca. Unasyn was discontinued and IV ceftriaxone started. TTE showed no evidence of endocarditis.patient afebrile with no leukocytosis. PICC line placed today for a possible 4 week course of antibiotics. Patient had a normal angiogram and ultimately a decision regarding BKA per Vascular Surgery and podiatry will be made as outpatient. ( Angiogram was done to assess the feasability of healing of a BKA). Patient will be discharged on IV Vancomycin to 1.5 g IV every 12 hours. Recheck a Vancomycin trough level with the 4th or 5th dose and obtain a CBC, ESR, BUN/creatinine and Vancomycin trough level weekly. Continue Vancomycin and Ceftriaxone to complete a 4 week course of treatment (until March 10 2018, then stop). #Poorly controlled diabetes Hgb A1c 8.9 on admission. Endocrinology was consulted and his blood sugar was managed with novoLog and levemir with good control. he will be discharged on metformin 500 mg am with breakfast and 1000 mg with dinner; Farxiga 5 mg daily; monitor FSGs. Endocrionology follow up recommended. #Severe diabetic polyneuropathy Patient was continued on gabapentin 800mg TID in addition to physical therapy. Pain was controlled with percocets as needed for breakthrough pain and twice a day oxycontin for basal pain control. #Microcytic anemia s/p surgery Patient's initial drop in H/H could be dilutional vs acute blood loss. He did not require blood transfusion, anemia improving and patient is clinically stable. #Chronic medical conditions-HTN, HLD, Depression Continue his home medications See CMR for discharge medications. Complications: none Allergies: Coded Allergies: atorvastatin (UNKNOWN 02/09/18) simvastatin (UNKNOWN 02/09/18) Significant Procedures: 1 open incision and drainage deep to the D fashion with exposure of the flexor tendon and tendon sheath multiple sites left ankle 2 debridement of necrotic bone left foot 3 intraoperative administration of negative pressure wound therapy 4 excisional debridement 5 Ultrasound-guided right common femoral artery access 6 Aortogram 7 Second order left leg angiogram Pertinent Lab Results: EXAM TYPE: CAT - CT LOWER EXT W IV CONTRAST 1. Extensive soft tissue edema and soft tissue air is seen involving the plantar surface of the midfoot and extending along the lateral malleolus proximally into the distal left lower leg. The process is most prominent in the posterior compartment of the leg but also involves the anterior compartment. Findings are suspicious for necrotizing fasciitis and gangrene. As noted above, the proximal extent of the process is not included on this CT scan. 2. Neuropathic joint with bone fragmentation and cystic changes and spurring seen throughout the hind and midfoot and at the ankle joint. Periostitis is also seen involving the distal tibia and fibula. These findings limit assessment for underlying osteomyelitis. Close clinical correlation is requested. An MRI scan of the foot and ankle may be helpful to exclude osteomyelitis. Disposition Summary Disposition Principal Diagnosis: 1. Necrotizing fascitis and gas gangrene of left foot s/p I&D and debridement 2. Sepsis due to MRSA and Kliebsiella osteomyelitis of left foot 3. Diabetic peripheral polyneuropathy Additional Diagnosis: 4. Poorly controlled T2 IDDM 5. Hx of substance abuse 6. HTN 7. HLD 8. Depression Discharge Disposition: SNF Discharge Instructions General Discharge Information Code Status: Full Code Patient's Diet: Diabetic diet Patient's Activity: As tolerated-per podiatry Follow-Up Instructions/Appts: Follow-up with Dr. Hernandez, Vascular Surgery, within 1 week of discharge. We have provided you with a referral. Follow-up with Dr. Reese within 1 week of discharge. Follow-up with your primary care physician within 1 week of discharge. Vancomycin and Ceftriaxone for a total of 4 week course. Last dose on 03/10/18. first dose of Vancomycin to be dosed on 02/20/18 in the evening, continue BID. Weekly vancomycin troughs starting on 02/22/18 1/2 hour before his evening dose. Weekly CBC and BUN/Cr while on Vancomycin Medications at Discharge Discharge Medications: Continue taking these medications: Gemfibrozil (Gemfibrozil) 600 MG TABLET 1 Tablet ORAL TWICE DAILY Qty = 90 Comments: Last Taken: 02/20/18 Time: 8:30 am Dapagliflozin Propanediol (Farxiga) 5 MG TABLET 1 Tablet ORAL DAILY Qty = 30 Comments: NOT TAKEN IN HOSPITAL Metformin HCl (Metformin HCl ER) 500 MG TAB.ER.24H 2 Tablet ORAL Every Morning Qty = 90 Comments: NOT TAKEN IN HOSPITAL Metformin HCl (Glucophage XR) 500 MG TAB.ER.24H 1 Tablet ORAL Every night Instructions: with food Comments: NOT TAKEN IN HOSPITAL Rosuvastatin Calcium (Crestor) 20 MG TABLET 1 Tablet ORAL DAILY Qty = 30 Comments: Last Taken: 02/20/18 Time: 5:00 pm Gabapentin (Gabapentin) 400 MG CAPSULE 2 Capsule ORAL THREE TIMES DAILY as needed for NERVE PAIN Qty = 180 Comments: NOT TAKEN IN HOSPITAL Citalopram Hydrobromide (Citalopram HBr) 20 MG TABLET 1.5 Tablet ORAL DAILY Qty = 45 Comments: Last Taken: 02/20/18 Time: 8:30 am Mirtazapine (Mirtazapine) 15 MG TABLET 1 Tablet ORAL TAKE AT BEDTIME as needed for MENTAL HEALTH Qty = 30 Comments: Last Taken: 02/19/18 Time: 9:30 pm Aripiprazole (Abilify) 10 MG TABLET 1 Tablet ORAL DAILY Qty = 30 Comments: Last Taken: 02/20/18 Time: 8:30 am Benztropine Mesylate (Benztropine Mesylate) 1 MG TABLET 1 Tablet ORAL TWICE DAILY Qty = 60 Comments: Last Taken: 02/20/18 Time: 8:30 am Start taking the following new medications: Vancomycin/0.9 % Sod Chloride (Vancomycin 1 G/200ML-0.9% NaCl) 1 GRAM/200 ML FROZ.PIGGY 1.5 Gram INTRAVEN TWICE DAILY Qty = 30 No Refills Instructions: TO TAKE FOR A TOTAL OF 4 WEEK COURSE LAST DOSE ON 03/10/18 Weekly BUN/Cr checks and Vancomycin troughs weekly Next vancomycin trough on 02/22/18 before evening dose Comments: LAST RECEIVED VANCO 2GM 02/20/18 @ 1:00 am Ceftriaxone Sodium (Ceftriaxone) 2 GRAM VIAL 2,000 Milligram INTRAVEN DAILY Qty = 30 No Refills Instructions: CONTINUE TAKING FOR 4 WEEKS, LAST DOSE ON 03/09/18 Comments: Last Taken: 02/19 Time: 5:00 pm Oxycodone HCl (Oxycontin) 15 MG TAB.ER.12H 15 Milligram ORAL EVERY 12 HOURS Qty = 10 No Refills Comments: Last Taken: 02/20 Time: 10:00 am Oxycodone HCl/Acetaminophen (Percocet 5-325 MG Tablet) 5 MG-325 MG TABLET 2 Tablet ORAL EVERY 4 HOURS NEEDED as needed for PAIN SCALE 7-10 (SEVERE) Qty = 10 No Refills Comments: Last Taken: 02/20/18 Time: 8:00 am Oxycodone HCl/Acetaminophen (Percocet 5-325 MG Tablet) 5 MG-325 MG TABLET 1 Tablet ORAL EVERY 4 HOURS NEEDED as needed for PAIN SCALE 4-6 (MODERATE ) Qty = 10 No Refills Docusate Sodium (Docusate Sodium) 100 MG CAPSULE 100 Milligram ORAL DAILY Qty = 30 No Refills Comments: Last Taken: 02/20/18 Time: 8:30 am Sennosides/Docusate Sodium (Senna-Time S Tablet) 8.6 MG-50 MG TABLET 187 Milligram ORAL AT BEDTIME Qty = 30 No Refills Comments: Last Taken: 02/18 Time: 9:00 pm Copies To: [place] PATINO,Stef Gale
[2018-02-12 22:44] VITALS: BP 116/70
[2018-02-12 22:46] VITALS: BP 110/60
[2018-02-13 07:00] VITALS: BP 120/74
--- NOTE | 2018-02-13 07:23 | PN- Housestaff ---
Vonda PATINO,Stef 02/13/1821: Subjective Follow-up For: Necrotizing fasciitis MRSA bacteremia Subjective: Patient seen and examined at bedside. He is resting comfortably. He had no acute events overnight. He has no new complaints but continues to complain of the foot pain. Review of Systems Constitutional: Reports: no symptoms. EENTM: Reports: no symptoms. Cardiovascular: Reports: no symptoms. Respiratory: Reports: no symptoms. Gastrointestinal: Reports: no symptoms. Genitourinary: Reports: no symptoms. Musculoskeletal: Reports: see HPI, joint pain. Skin: Reports: no symptoms. Objective Last 24 Hrs of Vital Signs/I&O Vital Signs Date Time Temp Pulse Resp B/P B/P Pulse O2 O2 Flow FiO2 Mean Ox Delivery Rate 02/13 0700 97.9 54 16 120/74 94 Room Air 02/12 2246 98.2 67 20 110/60 95 Trach Mask 02/12 2244 97.4 62 18 116/70 95 Room Air 02/12 1509 98.8 68 18 125/78 96 Intake & Output 02/13 0800 02/13 0000 02/12 1600 Intake Total 0849 603 1156 Output Total 1775 1200 550 Balance -745 -840 750 Intake, IV 550 500 Intake, Oral 480 360 800 Number 1 Bowel Movements Output, Urine 1775 1200 550 Patient 239 lb Weight Weight Bed scale Measurement Method Physical Exam General Appearance: Alert, Oriented X3, Cooperative Skin Temp/Moisture Exam: Warm/Dry Cardiovascular: Regular Rate, Normal S1, Normal S2 Lungs: Clear to Auscultation, Normal Air Movement Abdomen: Normal Bowel Sounds Neurological: Normal Speech, Normal Tone Extremities: L foot with dressing and wound vac in place, decreased sensation of the feet bilaterally but this is patient's baseline Current Medications: Current Medications Sig/Rafaela Start time Last Medication Dose Route Stop Time Status Admin Acetaminophen 650 MG .STK-MED ONE 02/12 2047 DC PO 02/13 2048 Acetaminophen 650 MG Q6P PRN 02/08 1545 AC 02/12 PO 2048 Acetaminophen 1,000 MG Q6P PRN 02/08 1545 AC 02/11 IV 1141 Aripiprazole 10 MG DAILY 02/09 1047 AC 02/12 PO 101 Benztropine Mesylate 1 MG BID 02/09 1047 AC 02/12 PO 2048 Ceftriaxone Sodium 2,000 MG DAILY@1700 02/09 1700 AC 02/12 IV 1637 Citalopram 30 MG DAILY 02/09 1047 AC 02/12 Hydrobromide PO 1018 Docusate Sodium 100 MG DAILY 02/11 1720 AC PO Gabapentin 800 MG TID PRN 02/09 1030 AC 02/11 PO 0800 Gemfibrozil 600 MG BID 02/09 1047 AC 02/12 PO 2049 Hydromorphone HCl 0.5 MG Q4P PRN 02/08 1545 AC 02/13 IV 0352 Insulin Aspart 0 TIDAC/HS 02/11 1200 AC 02/12 SC 1636 Mirtazapine 15 MG AT BEDTIME PRN 02/09 2200 AC 02/13 PO 0152 Ondansetron HCl 4 MG Q6P PRN 02/08 2245 AC IV Rosuvastatin Calcium 20 MG 1700 02/09 1700 AC 02/12 PO 1636 Senna 187 MG AT BEDTIME 02/11 2200 AC PO Vancomycin HCl 2,000 MG Q12H 02/12 1330 AC 02/13 Dextrose/Water 500 ML IV 0041 Vancomycin HCl 1,500 MG Q12H 02/09 0130 DC 02/12 Dextrose/Water 250 ML IV 0138 Last 24 Hrs of Lab/Sree Results Last 24 Hrs of Labs/Mics: Laboratory Tests 02/12/18 1146: ESR Westergren 104 H 02/12/18 0740: CBC w Diff NO MAN DIFF REQ, RBC 3.65 L, MCV 80.3, MCH 26.5 L, MCHC 32.9 L, RDW 16.7 H, MPV 8.0, Gran % 65.2, Lymphocytes % 19.3 L, Monocytes % 7.8, Eosinophils % 7.1 H, Basophils % 0.6, Absolute Granulocytes 4.5, Absolute Lymphocytes 1.3, Absolute Monocytes 0.5, Absolute Eosinophils 0.5, Absolute Basophils 0 Orders ECHO Findings: Left Ventricle Normal size left ventricle. Moderate concentric left ventricular hypertrophy. Normal left ventricular wall motion. Normal left ventricular ejection fraction visually estimated at >65%. "pseudonormal" filling pattern of the left ventricle for age (stage 2 diastolic dysfunction). Right Ventricle Normal right ventricular size and function. Right Atrium Normal right atrial size. Left Atrium Normal left atrial size. Mitral Valve Mild mitral annular calcification. Mitral valve mildly thickened. No evidence of vegetation on the mitral valve. Mild mitral regurgitation. Aortic Valve Trileaflet aortic valve. No evidence of vegetation on the aortic valve. No aortic valve stenosis or regurgitation. Tricuspid Valve Structurally normal tricuspid valve. No evidence of tricuspid valve vegetation. Trace tricuspid regurgitation. No evidence of pulmonary hypertension. Right ventricular systolic pressure estimated to be within the normal range at 10 mmHg. Pulmonic Valve Pulmonic valve not well visualized, grossly normal. No obvious vegetation on the pulmonic valve. Trace pulmonic regurgitation. Pericardium No pericardial effusion. Great Vessels Mild aortic dilatation at the level of the sinuses of valsalva (root). Mildly dilated proximal ascending aorta (tube). CONCLUSIONS Normal size left ventricle. Moderate concentric left ventricular hypertrophy. Normal left ventricular ejection fraction visually estimated at > 65%. "pseudonormal" filling pattern of the left ventricle for age (stage 2 diastolic dysfunction). Normal right ventricular size and function. Normal atrial size. No evidence of valvular vegetations. Mild mitral regurgitation. Trace tricuspid regurgitation. No evidence of pulmonary hypertension. Right ventricular systolic pressure estimated to be within the normal range at 10 mmHg. Trace pulmonic regurgitation. Mild aortic dilatation at the level of the sinuses of valsalva (root). Mildly dilated proximal ascending aorta (tube). Assessment/Plan Assessment: Patient is a 52-year-old male with past medical history of poorly controlled diabetes, chronic nonhealing ulcer on the plantar aspect of the left foot, diabetic neuropathy, osteomyelitis and MRSA. He presents with complaints of breakdown of his chronic nonhealing ulcer, with serous drainage, worsening erythema, increased warmth and severe pain of the left foot restarted a few days ago. He has had a history of recurrent osteomyelitis and cellulitis of his chronic left foot wound but for some time now the wound had begun to heal and he wore a boot to protect his foot and he follows regularly with Dr. Reese. However, a few days ago Dr. Reese removed the boot to give him some rest off it but this lead to a very rapid breakdown and infection of the ulcer. He had fevers at home Tmax 103 in the ED this morning. He denies chest pain, shortness of breath, nausea or vomiting. He has a hx of MRSA. Assessment #Necrotizing fasciitis of Left foot s/p debridement patient afebrile with no leukocytosis. TTE showed no evidence of endocarditis -Follow-up final cultures and sensitivities from OR -PICC line placed today - Patient will need a 4 week course of antibiotics -ID recommendations appreciated -Per discussion with Dr. Hernandez, patient is tentatively scheduled for angiogram on Saturday if he is still an inpatient, otherwise he will follow-up as an outpatient. #Poorly controlled diabetes Hgb A1c 8.9. Blood sugars have been well controlled on this admission -Continue current NovoLog sliding scale -Endocrine input appreciated #Severe diabetic neuropathy -Continue gabapentin 800mg TID -PT consult #Microcytic anemia s/p surgery Patient's initial drop in H/H could be dilutional, continues to remain stable -follow-up stool guaiac, patient has been constipated #Chronic medical conditions-HTN, HLD, Depression -continue home medications Lovenox for DVT prophylaxis diabetic diet FC Problem List: 1. MRSA bacteremia 2. Necrotizing fasciitis Pain Ratin Pain Location: L foot Pain Goal: Pain 4 or less Pain Plan: pain pathway Tomorrow's Labs & Rationales: cbc, bep Valarie Chi MD 02/13/18 1108: Attending MD Review Statement Attending Statement Attending MD Statement: examined this patient, discuss w/resident/PA/[employer], agreed w/resident/PA/[employer], reviewed EMR data (avail) Attending Assessment/Plan: 52M PMH Type 2 insulin dependent diabetes, peripheral neuropathy, s/p multiple surgeries on the left foot including left fifth toe amputation, resection of the left fourth metatarsal bone and distal cuboid of the left foot, with a nonhealing left foot wound since his last surgery 15 months prior presenting with worsening of the left foot with erythema and drainage with necrotizing fasciitis and gas gangrene, now s/p incision and drainage x2, most recently on , with OR cultures growing mRSA and Klebsiella. Doing well today. Reports pain medication does not last long enough and pain becomes severe when his next dose is due. Afebrile, stable vitals. 1. mRSA and Klebsiella acute osteomyelitis of the left foot 2. Necrotizing fasciitis and gas gangrene of the left foot 3. Sepsis due to above (resolved) 4. Uncontrolled Type 2 IDDM 5. Diabetic peripheral polyneuropathy Plan - Continue on general medicine - Continue Vancomycin and Ceftriaxone - Will pursue PICC - Follow ID, podiatry, vascular recommendations - Outpatient follow up for angiogram - Continue home medications - DVT PPx - Will speak with ID regarding discharge recommendations for antibiotic choice and duration, followed by transfer to short term rehab. No further labs.
--- NOTE | 2018-02-13 08:28 | PN- Diabetes ---
Assessment/Plan Diabetes Assessment: Patient is a 52-year-old male with past medical history of uncontrolled diabetes type 2, chronic nonhealing ulcer of left foot, diabetic neuropathy, osteomyelitis status post amputation of left 5th toe. He was admitted for necrotizing fasciitis band gangrene of left foot with positive blood culture of gram positive cocci. He underwent surgery for debrivement. He is on Novolog coverage before meals and Novolog coverage at bedtime. His FSGs were 126, 154, 137, 166 and 146. Plan: continue the current insulin regimen for now; monitor FSGs. will follow. Subjective Subjective: He has no special complaints at this point. Objective Last 24 Hrs of Vital Signs/I&O Vital Signs Date Time Temp Pulse Resp B/P B/P Pulse O2 O2 Flow FiO2 Mean Ox Delivery Rate 02/13 0700 97.9 54 16 120/74 94 Room Air 02/12 2246 98.2 67 20 110/60 95 Trach Mask 02/12 2244 97.4 62 18 116/70 95 Room Air 02/12 1509 98.8 68 18 125/78 96 Intake & Output 02/13 1600 02/13 0800 02/13 0000 Intake Total 1030 360 Output Total 1775 1200 Balance -745 -840 Intake, IV 550 Intake, Oral 480 360 Output, Urine 1775 1200 Patient 239 lb Weight Weight Bed scale Measurement Method Findings Pertinent Lab/Sree Results: Laboratory Tests 02/13 02/12 0820 1146 Hematology CBC w Diff Pending WBC Pending RBC Pending Hgb Pending Hct Pending MCV Pending MCH Pending MCHC Pending RDW Pending Plt Count Pending MPV Pending ESR Westergren (0 - 10 MM) 104 H
[2018-02-13 09:14] LABS: ABSOLUTE BASOPHIL COUNT 0 /CUMM (0.0-0.2); ABSOLUTE EOSINOPHIL COUNT 0.4 /CUMM (0.0-0.7); ABSOLUTE GRANULOCYTE CT 4.4 /CUMM (1.4-6.5); ABSOLUTE LYMPH COUNT 1.6 /CUMM (1.2-3.4); ABSOLUTE MONOCYTE COUNT 0.6 /CUMM (0.10-0.60); BASOPHIL % 0.6 % (0.0-2.0); EOSINOPHIL % 6.3 % (0-5); GRANULOCYTE % 62.8 % (42.2-75.2); HEMATOCRIT 30.6 % (42-52); MEAN CORPUSCULAR HGB 26.5 PG (27.0-31.0); MEAN CORPUSCULAR HGB CONC 33.2 G/DL (33.0-37.0); MEAN CORPUSCULAR VOLUME 79.8 FL (80.0-94.0); PLATELET COUNT 338 /CUMM (130-400); RBC DISTRIBUTION WIDTH 16.2 % (11.5-14.5); RED BLOOD CELL CT 3.83 /CUMM (4.70-6.10)
--- NOTE | 2018-02-13 12:10 | RADIOLOGY REPORT ---
EXAMINATION: XR PORTABLE CHEST CLINICAL INFORMATION: PICC placement COMPARISON: 02/08/2018 TECHNIQUE: Portable AP 85 degrees upright view of the chest was obtained. FINDINGS: The cardiac silhouette is not enlarged. The lung volumes are decreased. No focal consolidation or atelectasis is seen. The right arm PICC can be visualized to the level of the distal right subclavian vein but cannot be clearly seen more centrally due to limited detail. No acute osseous abnormality. IMPRESSION: The tip of the right PICC is not clearly documented on this study. Consider PA and lateral chest radiograph for more optimal visualization.
[2018-02-13 14:03] VITALS: BP 110/80
--- NOTE | 2018-02-13 14:33 | RADIOLOGY REPORT ---
EXAMINATION: XR PORTABLE CHEST CLINICAL INFORMATION: PICC tip placement. COMPARISON: 02/13/2018 TECHNIQUE: Portable AP 85 degrees upright view of the chest was obtained. FINDINGS: Right arm PICC is seen extending to at least the level of the right brachiocephalic vein. The catheter tip is not well visualized due to limited detail from motion unsharpness and shallow inspiration. There is mild vascular congestion and mild basilar atelectasis with low lung volumes. IMPRESSION: The right arm PICC appears to terminate at the level of the right brachiocephalic vein although evaluation of the PICC tip is limited as above. This could be further advanced by approximately 4 cm.
--- NOTE | 2018-02-13 17:16 | RADIOLOGY REPORT ---
EXAMINATION: XR CHEST CLINICAL INFORMATION: PICC placement COMPARISON: 02/13/2018. TECHNIQUE: 2 views of the chest were obtained. FINDINGS: Right PICC has been advanced since the previous examination and appears to extend to the cavoatrial junction region. There appears to be a second catheter in the right axilla, correlate clinically. Vascular congestion persists in the lungs without focal consolidation or pleural effusion. The heart is not enlarged. IMPRESSION: Right PICC extends to the cavoatrial junction region. Possible second catheter in the right axillary region, correlate clinically.
[2018-02-13 23:04] VITALS: BP 118/70
[2018-02-14 06:40] VITALS: BP 114/70
--- NOTE | 2018-02-14 07:09 | PN- Housestaff ---
Vonda PATINO,Stef 02/14/18 0708: Subjective Follow-up For: Necrotizing fasciitis MRSA bacteremia Subjective: Patient was seen and examined at bedside. He is resting comfortably. He had no acute events overnight. His pain remains relatively well-controlled currently 3 /10 left foot. When asked about his mood the patient stated that he is in good spirits. He has no new complaints. Review of Systems Constitutional: Reports: no symptoms. EENTM: Reports: no symptoms. Cardiovascular: Reports: no symptoms. Respiratory: Reports: no symptoms. Gastrointestinal: Reports: no symptoms. Genitourinary: Reports: no symptoms. Musculoskeletal: Reports: see HPI, joint pain (L foot pain). Skin: Reports: no symptoms. Neurological/Psychological: Reports: no symptoms. Objective Last 24 Hrs of Vital Signs/I&O Vital Signs Date Time Temp Pulse Resp B/P B/P Pulse O2 O2 Flow FiO2 Mean Ox Delivery Rate 02/14 0640 98.4 60 18 114/70 95 Room Air 02/13 2304 98.6 54 20 118/70 93 Room Air 02/13 1403 98.2 76 18 110/80 97 02/13 1242 Room Air 02/13 1107 Room Air Intake & Output 02/14 0800 02/14 0000 02/13 1600 Intake Total 200 Output Total 375 Balance -375 200 Intake, Oral 200 Number 1 Bowel Movements Output, Urine 375 Physical Exam General Appearance: Alert, Oriented X3, Cooperative, No Acute Distress Skin Temp/Moisture Exam: Warm/Dry Cardiovascular: Regular Rate, Normal S1, Normal S2 Lungs: Clear to Auscultation, Normal Air Movement Abdomen: Normal Bowel Sounds, Soft, No Tenderness Neurological: Normal Speech, Normal Tone, decreaseed sensation in the feet, bilaterally, this is patient's baseline Extremities: L foot dressed with wound vac in place Current Medications: Current Medications Sig/Rafaela Start time Last Medication Dose Route Stop Time Status Admin Acetaminophen 650 MG Q6P PRN 02/08 1545 AC 02/12 PO 204 Acetaminophen 1,000 MG Q6P PRN 02/08 1545 AC 02/11 IV 1141 Aripiprazole 10 MG DAILY 02/09 1047 AC 02/13 PO 0823 Benztropine Mesylate 1 MG BID 02/09 1047 AC 02/13 PO 205 Ceftriaxone Sodium 2,000 MG DAILY@1700 03/11 1700 AC 02/13 IV 1818 Citalopram 30 MG DAILY 02/09 1047 AC 02/13 Hydrobromide PO 0823 Docusate Sodium 100 MG DAILY 02/11 1720 AC 02/13 PO 0823 Gabapentin 800 MG TID PRN 02/09 1030 AC 02/11 PO 0800 Gemfibrozil 600 MG BID 02/09 1047 AC 02/13 PO 2051 Hydromorphone HCl 0.5 MG Q3 PRN 02/13 0912 AC 02/14 IV 0659 Hydromorphone HCl 0.5 MG Q4P PRN 02/08 1545 DC 02/13 IV 0822 Insulin Aspart 0 TIDAC/HS 02/11 1200 AC 02/13 SC 1817 Mirtazapine 15 MG AT BEDTIME PRN 02/09 2200 AC 02/13 PO 0152 Ondansetron HCl 4 MG Q6P PRN 02/08 2245 AC IV Rosuvastatin Calcium 20 MG 1700 02/09 1700 AC 02/13 PO 1817 Senna 187 MG AT BEDTIME 02/11 2200 AC PO Vancomycin HCl 2,000 MG Q12H 02/12 1330 AC 02/14 Dextrose/Water 500 ML IV 0149 Last 24 Hrs of Lab/Sree Results Last 24 Hrs of Labs/Mics: Laboratory Tests 02/14/18 0610: Sodium Pending, Potassium Pending, Chloride Pending, Carbon Dioxide Pending, Anion Gap Pending, BUN Pending, Creatinine Pending, BUN/Creatinine Ratio Pending , CBC w Diff Pending, WBC Pending, RBC Pending, Hgb Pending, Hct Pending, MCV Pending, MCH Pending, MCHC Pending, RDW Pending, Plt Count Pending, MPV Pending 02/13/18 0820: CBC w Diff NO MAN DIFF REQ, RBC 3.83 L, MCV 79.8 L, MCH 26.5 L, MCHC 33.2, RDW 16.2 H, MPV 8.0, Gran % 62.8, Lymphocytes % 22.3, Monocytes % 8.0, Eosinophils % 6.3 H, Basophils % 0.6, Absolute Granulocytes 4.4, Absolute Lymphocytes 1.6, Absolute Monocytes 0.6, Absolute Eosinophils 0.4, Absolute Basophils 0 Assessment/Plan Assessment: Patient is a 52-year-old male with past medical history of poorly controlled diabetes, chronic nonhealing ulcer on the plantar aspect of the left foot, diabetic neuropathy, osteomyelitis and MRSA. He presented with complaints of breakdown of his chronic nonhealing ulcer, with serous drainage, worsening erythema, increased warmth and severe pain of the left foot restarted a few days ago. He has had a history of recurrent osteomyelitis and cellulitis of his chronic left foot wound but for some time now the wound had begun to heal and he wore a boot to protect his foot and he follows regularly with Dr. Reese. However, a few days prior to admission Dr. Reese removed the boot to give him some rest off it but this lead to a very rapid breakdown and infection of the ulcer. He had fevers at home Tmax 103 in the ED the morning of admission. #Necrotizing fasciitis of Left foot s/p debridement patient remains afebrile with no leukocytosis. TTE showed no evidence of endocarditis -Follow-up final cultures and sensitivities from OR -PICC line placed yesterday - Patient will need a 4 week course of antibiotics -ID recommendations appreciated -Per discussion with Dr. Hernandez, patient is tentatively scheduled for angiogram on Saturday02/16/18 if he is still an inpatient, otherwise he will follow-up as an outpatient. -Vancomycin trough was to be drawn prior to the afternoon dose today, this was missed by nursing staff and will be drawn before the next dose. -Continue current regimen of vancomycin and ceftriaxone pending vancomycin trough tonight #Poorly controlled diabetes Hgb A1c 8.9. Blood sugars have been well controlled on this admission -Continue current NovoLog sliding scale -started on levemir 8 mg daily -Endocrine input appreciated #Severe diabetic neuropathy -Continue gabapentin 800mg TID #Chronic medical conditions-HTN, HLD, Depression -continue home medications Lovenox for DVT prophylaxis diabetic diet FC Problem List: 1. MRSA bacteremia 2. Necrotizing fasciitis Pain Ratin Pain Location: L foot Pain Goal: Pain 4 or less Pain Plan: pain pathway Tomorrow's Labs & Rationales: cbc, vanc trough Valarie Chi MD 02/14/18 1107: Attending MD Review Statement Attending Statement Attending MD Statement: examined this patient, discuss w/resident/PA/CHIN STRAP CUTTER, agreed w/resident/PA/CHIN STRAP CUTTER, reviewed EMR data (avail) Attending Assessment/Plan: 52M PMH Type 2 insulin dependent diabetes, peripheral neuropathy, s/p multiple surgeries on the left foot including left fifth toe amputation, resection of the left fourth metatarsal bone and distal cuboid of the left foot, with a nonhealing left foot wound since his last surgery 15 months prior presenting with worsening of the left foot with erythema and drainage with necrotizing fasciitis and gas gangrene, now s/p incision and drainage x2, most recently on , with OR cultures growing mRSA and Klebsiella, PICC placed 02/13. Doing well today. Pain better controlled. 1. mRSA and Klebsiella acute osteomyelitis of the left foot 2. Necrotizing fasciitis and gas gangrene of the left foot 3. Sepsis due to above (resolved) 4. Uncontrolled Type 2 IDDM 5. Diabetic peripheral polyneuropathy Plan - Continue on general medicine - Continue Vancomycin and Ceftriaxone - Follow ID, podiatry, vascular recommendations - If still inpatient will undergo LE angiography on 02/13 - Continue home medications - DVT PPx - If STR bed is available may be discharged with outpatient vascular follow up
[2018-02-14 09:33] LABS: ABSOLUTE BASOPHIL COUNT 0 /CUMM (0.0-0.2); ABSOLUTE EOSINOPHIL COUNT 0.4 /CUMM (0.0-0.7); ABSOLUTE GRANULOCYTE CT 5.1 /CUMM (1.4-6.5); ABSOLUTE LYMPH COUNT 1.8 /CUMM (1.2-3.4); ABSOLUTE MONOCYTE COUNT 0.5 /CUMM (0.10-0.60); BASOPHIL % 0.6 % (0.0-2.0); EOSINOPHIL % 5.6 % (0-5); GRANULOCYTE % 64.2 % (42.2-75.2); HEMATOCRIT 30.1 % (42-52); MEAN CORPUSCULAR HGB 26.9 PG (27.0-31.0); MEAN CORPUSCULAR HGB CONC 33.4 G/DL (33.0-37.0); MEAN CORPUSCULAR VOLUME 80.4 FL (80.0-94.0); MEAN PLATELET VOLUME 8.2 FL (7.4-10.4); PLATELET COUNT 349 /CUMM (130-400); RBC DISTRIBUTION WIDTH 16.3 % (11.5-14.5); RED BLOOD CELL CT 3.74 /CUMM (4.70-6.10)
--- NOTE | 2018-02-14 11:44 | PN- Vascular Surgery ---
Surgical Brief Attending Note Brief Attending Note: Patient is tentatively on the schedule for left leg angio on saturday should he remains in the hospital. Otherwise, angio can be scheduled as outpt. Angio is to assess feasability of healing a BKA.
--- NOTE | 2018-02-14 13:14 | PN- Diabetes ---
Assessment/Plan Diabetes Assessment: Patient is a 52-year-old male with past medical history of uncontrolled diabetes type 2, chronic nonhealing ulcer of left foot, diabetic neuropathy, osteomyelitis status post amputation of left 5th toe. He was admitted for necrotizing fasciitis band gangrene of left foot with positive blood culture of gram positive cocci. He underwent surgery for debrivement. He is on Novolog coverage before meals and Novolog coverage at bedtime. His FSGs were 146, 204, 138, 175 and 166. Plan: 1. add Levemir 8 units daily; 2. continue the current Novolog coverage before meals and Novolog coverage at bedtime; 3. monitor FSGs will follow. Subjective Subjective: He feels okay this morning. Objective Last 24 Hrs of Vital Signs/I&O Vital Signs Date Time Temp Pulse Resp B/P B/P Pulse O2 O2 Flow FiO2 Mean Ox Delivery Rate 02/14 0640 98.4 60 18 114/70 95 Room Air 02/13 2304 98.6 54 20 118/70 93 Room Air 02/13 1403 98.2 76 18 110/80 97 Intake & Output 02/14 1600 02/14 0800 02/14 0000 Intake Total 900 200 Output Total 975 Balance -75 200 Intake, IV 500 Intake, Oral 400 200 Number 0 Bowel Movements Output, Urine 975 Findings Pertinent Lab/Sree Results: Laboratory Tests 02/14 0610 Chemistry Sodium (137 - 145 mmol/L) 140 Potassium (3.5 - 5.1 mmol/L) 4.1 Chloride (98 - 107 mmol/L) 103 Carbon Dioxide (22 - 30 mmol/L) 27 Anion Gap (5 - 16) 10 BUN (9 - 20 mg/dL) 5 L Creatinine (0.7 - 1.2 mg/dL) 0.6 L Estimated GFR (>60 ml/min) > 60 BUN/Creatinine Ratio (7 - 25 %) 8.3 Hematology CBC w Diff NO MAN DIFF REQ WBC (4.8 - 10.8 /CUMM) 8.0 RBC (4.70 - 6.10 /CUMM) 3.74 L Hgb (14.0 - 18.0 G/DL) 10.1 L Hct (42 - 52 %) 30.1 L MCV (80.0 - 94.0 FL) 80.4 MCH (27.0 - 31.0 PG) 26.9 L MCHC (33.0 - 37.0 G/DL) 33.4 RDW (11.5 - 14.5 %) 16.3 H Plt Count (130 - 400 /CUMM) 349 MPV (7.4 - 10.4 FL) 8.2 Gran % (42.2 - 75.2 %) 64.2 Lymphocytes % (20.5 - 51.1 %) 22.8 Monocytes % (1.7 - 9.3 %) 6.8 Eosinophils % (0 - 5 %) 5.6 H Basophils % (0.0 - 2.0 %) 0.6 Absolute Granulocytes (1.4 - 6.5 /CUMM) 5.1 Absolute Lymphocytes (1.2 - 3.4 /CUMM) 1.8 Absolute Monocytes (0.10 - 0.60 /CUMM) 0.5 Absolute Eosinophils (0.0 - 0.7 /CUMM) 0.4 Absolute Basophils (0.0 - 0.2 /CUMM) 0
--- NOTE | 2018-02-14 13:34 | PN- Infect Dx ---
Subjective Subjective: Afebrile. He continues to complain of pain in the left foot Objective Last 24 Hrs of Vital Signs/I&O Vital Signs Date Time Temp Pulse Resp B/P B/P Pulse O2 O2 Flow FiO2 Mean Ox Delivery Rate 02/14 0640 98.4 60 18 114/70 95 Room Air 02/13 2304 98.6 54 20 118/70 93 Room Air 02/13 1403 98.2 76 18 110/80 97 Intake & Output 02/14 1600 02/14 0800 02/14 0000 Intake Total 900 200 Output Total 975 Balance -75 200 Intake, IV 500 Intake, Oral 400 200 Number 0 Bowel Movements Output, Urine 975 Physical Exam Other Physical Findings: He appears comfortable in no acute distress Extremities left foot dressing intact; PICC in place in the right upper extremity Results Last 24 Hours of Lab Results: Laboratory Tests 02/14 0610 Chemistry Sodium (137 - 145 mmol/L) 140 Potassium (3.5 - 5.1 mmol/L) 4.1 Chloride (98 - 107 mmol/L) 103 Carbon Dioxide (22 - 30 mmol/L) 27 Anion Gap (5 - 16) 10 BUN (9 - 20 mg/dL) 5 L Creatinine (0.7 - 1.2 mg/dL) 0.6 L Estimated GFR (>60 ml/min) > 60 BUN/Creatinine Ratio (7 - 25 %) 8.3 Hematology CBC w Diff NO MAN DIFF REQ WBC (4.8 - 10.8 /CUMM) 8.0 RBC (4.70 - 6.10 /CUMM) 3.74 L Hgb (14.0 - 18.0 G/DL) 10.1 L Hct (42 - 52 %) 30.1 L MCV (80.0 - 94.0 FL) 80.4 MCH (27.0 - 31.0 PG) 26.9 L MCHC (33.0 - 37.0 G/DL) 33.4 RDW (11.5 - 14.5 %) 16.3 H Plt Count (130 - 400 /CUMM) 349 MPV (7.4 - 10.4 FL) 8.2 Gran % (42.2 - 75.2 %) 64.2 Lymphocytes % (20.5 - 51.1 %) 22.8 Monocytes % (1.7 - 9.3 %) 6.8 Eosinophils % (0 - 5 %) 5.6 H Basophils % (0.0 - 2.0 %) 0.6 Absolute Granulocytes (1.4 - 6.5 /CUMM) 5.1 Absolute Lymphocytes (1.2 - 3.4 /CUMM) 1.8 Absolute Monocytes (0.10 - 0.60 /CUMM) 0.5 Absolute Eosinophils (0.0 - 0.7 /CUMM) 0.4 Absolute Basophils (0.0 - 0.2 /CUMM) 0 Last 24 Hours of Sree Results: Blood cultures 2 February 10 negative Assessment/Plan ID Impression: Stable, with temperatures and white blood cell count remaining normal, on Vancomycin and Ceftriaxone for osteomyelitis of the left foot secondary to MRSA and Klebsiella, with secondary bacteremia, now 4 days status post repeat debridement of necrotic bone of the left foot and I&D of the left ankle, with placement of a wound VAC. He is apparently scheduled for an angiogram of the left leg on February 17 to assess the feasibility of healing a BKA. Suggestion: 1. Repeat Vancomycin trough level with his next dose 2. Await left leg angiogram, scheduled for February 17 3. Continue Vancomycin and Ceftriaxone
[2018-02-14 15:01] VITALS: BP 118/62
[2018-02-14] MEDS ORDERED: CEFTRIAXONE2 G2 IV (16:13)
[2018-02-14] MEDS ORDERED: VANCOMYCIN1 GM/2001 IV (16:13)
[2018-02-14 23:08] VITALS: BP 128/70
[2018-02-15 07:26] VITALS: BP 116/80
[2018-02-15 09:02] LABS: ABSOLUTE BASOPHIL COUNT 0 /CUMM (0.0-0.2); ABSOLUTE EOSINOPHIL COUNT 0.4 /CUMM (0.0-0.7); ABSOLUTE GRANULOCYTE CT 5.7 /CUMM (1.4-6.5); ABSOLUTE LYMPH COUNT 2.2 /CUMM (1.2-3.4); ABSOLUTE MONOCYTE COUNT 0.5 /CUMM (0.10-0.60); BASOPHIL % 0.5 % (0.0-2.0); EOSINOPHIL % 4.9 % (0-5); HEMATOCRIT 33.3 % (42-52); MEAN CORPUSCULAR HGB 26.4 PG (27.0-31.0); MEAN CORPUSCULAR HGB CONC 33.1 G/DL (33.0-37.0); MEAN CORPUSCULAR VOLUME 79.8 FL (80.0-94.0); MEAN PLATELET VOLUME 8.1 FL (7.4-10.4); PLATELET COUNT 386 /CUMM (130-400); RED BLOOD CELL CT 4.17 /CUMM (4.70-6.10); WHITE BLOOD CELL COUNT 8.9 /CUMM (4.8-10.8)
--- NOTE | 2018-02-15 10:43 | PN- Att Addend ---
Attending Addendum Attending Brief Note Pt was seen and examined by me independently. Chart reviewed. Currently reports doing OK except for foot pain. Denies CP, SOB, f/c. No overnight issues Vital Signs Date Time Temp Pulse Resp B/P B/P Pulse O2 O2 Flow FiO2 Mean Ox Delivery Rate 02/15 0726 98.7 53 20 116/80 93 Room Air 02/14 2308 98.9 62 20 128/70 94 02/14 1501 97.6 70 20 118/62 92 Intake & Output 02/15 1600 02/15 0800 02/15 0000 Intake Total 850 960 Output Total 500 1400 Balance 350 -440 Intake, IV 500 Intake, Oral 350 960 Output, Urine 500 1400 Labs/Diagnostics: reviewed A/P: Briefly, Mr. Santillan is a 52 yo man with PMHx: Type 2 insulin dependent diabetes, peripheral neuropathy, s/p multiple surgeries on the left foot including left fifth toe amputation, resection of the left fourth metatarsal bone and distal cuboid of the left foot, with a nonhealing left foot wound since his last surgery 15 months ago a/w worsening of the left foot with erythema and drainage with necrotizing fasciitis and gas gangrene, now s/p incision and drainage x2, most recently on 02/10, with OR cultures growing MRSA and Klebsiella, PICC placed 02/13. --Currently on IV abx for Acute Osteo of left fott --Appreciate ID & Podiatry evals --Plan for LE angiography on 02/17 to assess feasibility of healing a BKA --Continue home medications --DVT PPx --likely D/C to STR after the procedure
--- NOTE | 2018-02-15 12:10 | PN- Diabetes ---
Assessment/Plan Diabetes Assessment: States he feels okay. He is eating well. He is on Levemir 8 units once a day and sliding scale NovoLog before meals starting with 2 units for sugar between 100-150. His most recent fingerstick blood sugars are under good range 157-162. Plan: Suggest continue the present insulin. We will continue to monitor her sugars carefully. Subjective Subjective: Feels okay Review of Systems Constitutional: Denies: chills, fever. Cardiovascular: Denies: chest pain. Respiratory: Denies: cough, short of breath. Gastrointestinal: Denies: abdominal pain, nausea, vomiting. Musculoskeletal: Reports: joint pain (foot). Objective Last 24 Hrs of Vital Signs/I&O Vital Signs Date Time Temp Pulse Resp B/P B/P Pulse O2 O2 Flow FiO2 Mean Ox Delivery Rate 02/15 726 98.7 53 20 116/80 93 Room Air 02/14 2308 98.9 62 20 128/70 94 02/14 1501 97.6 70 20 118/62 92 Intake & Output 02/15 1600 02/15 0802/15 0000 Intake Total 850 960 Output Total 500 1400 Balance 350 -440 Intake, IV 500 Intake, Oral 350 960 Output, Urine 500 1400 Vital Signs Date Time Temp Pulse Resp B/P B/P Pulse O2 O2 Flow FiO2 Mean Ox Delivery Rate 02/15 07 98.7 53 20 116/80 93 Room Air 02/14 2308 98.9 62 20 128/70 94 02/14 1501 97.6 70 20 118/62 92 Intake & Output 02/15 1600 02/15 0800 02/15 0000 Intake Total 850 960 Output Total 500 1400 Balance 350 -440 Intake, IV 500 Intake, Oral 350 960 Output, Urine 500 1400 Physical Exam General Appearance: alert, awake, comfortable Neck: normal inspection Respiratory: normal breath sounds Cardiovascular: regular rate/rhythm Abdomen: normal bowel sounds, soft Current Medications: Current Medications Sig/Rafaela Start time Last Medication Dose Route Stop Time Status Admin Acetaminophen 650 MG Q6P PRN 02/08 1545 AC 02/12 PO 2048 Acetaminophen 1,000 MG Q6P PRN 02/08 1545 AC 02/14 IV 1156 Aripiprazole 10 MG DAILY 02/09 1047 AC 02/15 PO 0946 Benztropine Mesylate 1 MG BID 02/09 1047 AC 02/15 PO 0946 Ceftriaxone Sodium 2,000 MG DAILY@1700 02/09 1700 AC 02/14 IV 1613 Citalopram 30 MG DAILY 02/09 1047 AC 02/15 Hydrobromide PO 0946 Docusate Sodium 100 MG DAILY 02/11 1720 AC 02/15 PO 0946 Gabapentin 800 MG TID PRN 02/09 1030 AC 02/11 PO 0800 Gemfibrozil 600 MG BID 02/09 1047 AC 02/15 PO 0946 Insulin Aspart 0 TIDAC/HS 02/11 1200 AC 02/15 SC 0826 Insulin Detemir 8 UNITS DAILY 02/14 1000 AC 02/15 SC 0949 Mirtazapine 15 MG AT BEDTIME PRN 02/09 2200 AC 02/13 PO 0152 Morphine Sulfate 2 MG Q3P PRN 02/14 0830 AC 02/15 IV 0951 Ondansetron HCl 4 MG Q6P PRN 02/08 2245 AC IV Rosuvastatin Calcium 20 MG 1700 02/09 1700 AC 02/14 PO 1612 Senna 187 MG AT BEDTIME 02/11 2200 AC PO Vancomycin HCl 2,000 MG Q12H 02/12 1330 AC 02/15 Dextrose/Water 500 ML IV 0031 Findings Pertinent Lab/Sree Results: Laboratory Tests 02/15 02/15 02/14 0655 0037 1230 Hematology CBC w Diff NO MAN DIFF REQ WBC (4.8 - 10.8 /CUMM) 8.9 RBC (4.70 - 6.10 /CUMM) 4.17 L Hgb (14.0 - 18.0 G/DL) 11.0 L Hct (42 - 52 %) 33.3 L MCV (80.0 - 94.0 FL) 79.8 L MCH (27.0 - 31.0 PG) 26.4 L MCHC (33.0 - 37.0 G/DL) 33.1 RDW (11.5 - 14.5 %) 17.0 H Plt Count (130 - 400 /CUMM) 386 MPV (7.4 - 10.4 FL) 8.1 Gran % (42.2 - 75.2 %) 64.0 Lymphocytes % (20.5 - 51.1 %) 25.2 Monocytes % (1.7 - 9.3 %) 5.4 Eosinophils % (0 - 5 %) 4.9 Basophils % (0.0 - 2.0 %) 0.5 Absolute Granulocytes (1.4 - 6.5 /CUMM) 5.7 Absolute Lymphocytes (1.2 - 3.4 /CUMM) 2.2 Absolute Monocytes (0.10 - 0.60 /CUMM) 0.5 Absolute Eosinophils (0.0 - 0.7 /CUMM) 0.4 Absolute Basophils (0.0 - 0.2 /CUMM) 0 Toxicology Vancomycin Trough (10.0 - 20.0 ug/mL) 16.1 Cancelled Laboratory Tests 02/15 02/15 02/14 0655 0037 1230 Hematology CBC w Diff NO MAN DIFF REQ WBC (4.8 - 10.8 /CUMM) 8.9 RBC (4.70 - 6.10 /CUMM) 4.17 L Hgb (14.0 - 18.0 G/DL) 11.0 L Hct (42 - 52 %) 33.3 L MCV (80.0 - 94.0 FL) 79.8 L MCH (27.0 - 31.0 PG) 26.4 L MCHC (33.0 - 37.0 G/DL) 33.1 RDW (11.5 - 14.5 %) 17.0 H Plt Count (130 - 400 /CUMM) 386 MPV (7.4 - 10.4 FL) 8.1 Gran % (42.2 - 75.2 %) 64.0 Lymphocytes % (20.5 - 51.1 %) 25.2 Monocytes % (1.7 - 9.3 %) 5.4 Eosinophils % (0 - 5 %) 4.9 Basophils % (0.0 - 2.0 %) 0.5 Absolute Granulocytes (1.4 - 6.5 /CUMM) 5.7 Absolute Lymphocytes (1.2 - 3.4 /CUMM) 2.2 Absolute Monocytes (0.10 - 0.60 /CUMM) 0.5 Absolute Eosinophils (0.0 - 0.7 /CUMM) 0.4 Absolute Basophils (0.0 - 0.2 /CUMM) 0 Toxicology Vancomycin Trough (10.0 - 20.0 ug/mL) 16.1 Cancelled
[2018-02-15 14:14] VITALS: BP 113/64
[2018-02-15 22:44] VITALS: BP 118/73
[2018-02-16 06:28] VITALS: BP 100/70
--- NOTE | 2018-02-16 08:41 | PN- Housestaff ---
Vonda PATINO,Stef 02/16/18 0840: Subjective Follow-up For: Osteomyelitis Diabetes Subjective: Patient was seen and examined at bedside. He is resting. He had no acute events overnight. He states that his left foot pain level is slightly increased from previous days. He has no complaints. Review of Systems Constitutional: Denies: chills, malaise. EENTM: Reports: no symptoms. Cardiovascular: Reports: no symptoms. Respiratory: Reports: no symptoms. Gastrointestinal: Reports: no symptoms. Genitourinary: Reports: no symptoms. Musculoskeletal: Reports: see HPI. Skin: Reports: no symptoms. Neurological/Psychological: Reports: no symptoms. Objective Last 24 Hrs of Vital Signs/I&O Vital Signs Date Time Temp Pulse Resp B/P B/P Pulse O2 O2 Flow FiO2 Mean Ox Delivery Rate 02/16 0628 98.8 51 20 100/70 93 Room Air 02/15 2244 98.5 63 18 118/73 92 Room Air 02/15 1414 98.6 66 16 113/64 94 Room Air Intake & Output 02/16 1600 02/16 0800 02/16 0000 Intake Total 550 800 Output Total 625 1350 Balance -75 -550 Intake, IV 550 Intake, Oral 0 800 Number 0 Bowel Movements Output, Urine 625 1350 Physical Exam General Appearance: Alert, Oriented X3, Cooperative, No Acute Distress Skin Temp/Moisture Exam: Warm/Dry Sepsis Skin Exam (color): Pale Cardiovascular: Regular Rate, Normal S1, Normal S2 Lungs: Clear to Auscultation, Normal Air Movement Abdomen: Normal Bowel Sounds, Soft, No Tenderness Neurological: Normal Speech, Sensation Intact, Cranial Nerves 3-12 NL, decreased senstation of the toes on the L foot Extremities: L foot in kerlex dressing with wound vac in place Current Medications: Current Medications Sig/Rafaela Start time Last Medication Dose Route Stop Time Status Admin Acetaminophen 650 MG Q6P PRN 02/08 1545 AC 02/16 PO 0546 Acetaminophen 1,000 MG Q6P PRN 02/08 1545 AC 02/14 IV 1156 Aripiprazole 10 MG DAILY 02/09 1047 AC 02/15 PO 0946 Benztropine Mesylate 1 MG BID 02/09 1047 AC 02/15 PO 2045 Ceftriaxone Sodium 2,000 MG DAILY@1700 02/09 1700 AC 02/15 IV 1637 Citalopram 30 MG DAILY 02/09 1047 AC 02/15 Hydrobromide PO 0946 Docusate Sodium 100 MG DAILY 02/11 1720 AC 02/15 PO 0946 Gabapentin 800 MG TID PRN 02/09 1030 AC 02/11 PO 0800 Gemfibrozil 600 MG BID 02/09 1047 AC 02/15 PO 2045 Insulin Aspart 0 TIDAC/HS 02/11 1200 AC 02/16 SC 0838 Insulin Detemir 8 UNITS DAILY 02/14 1000 AC 02/15 SC 0949 Mirtazapine 15 MG AT BEDTIME PRN 02/09 2200 AC 02/15 PO 2147 Morphine Sulfate 2 MG Q3P PRN 02/14 0830 AC 02/16 IV 0650 Ondansetron HCl 4 MG Q6P PRN 02/08 2245 AC IV Rosuvastatin Calcium 20 MG 1700 02/09 1700 AC 02/15 PO 1637 Senna 187 MG AT BEDTIME 02/11 2200 AC PO Vancomycin HCl 2,000 MG Q12H 02/12 1330 AC 02/16 Dextrose/Water 500 ML IV 0105 Last 24 Hrs of Lab/Sree Results Last 24 Hrs of Labs/Mics: Laboratory Tests 02/16/18 0550: Sodium Pending, Potassium Pending, Chloride Pending, Carbon Dioxide Pending, Anion Gap Pending, BUN Pending, Creatinine Pending, BUN/Creatinine Ratio Pending , CBC w Diff Pending, WBC Pending, RBC Pending, Hgb Pending, Hct Pending, MCV Pending, MCH Pending, MCHC Pending, RDW Pending, Plt Count Pending, MPV Pending Assessment/Plan Assessment: Patient is a 52-year-old male with past medical history of poorly controlled diabetes, chronic nonhealing ulcer on the plantar aspect of the left foot, diabetic neuropathy, osteomyelitis and MRSA. He presented with complaints of breakdown of his chronic nonhealing ulcer, with serous drainage, worsening erythema, increased warmth and severe pain of the left foot restarted a few days ago. He has had a history of recurrent osteomyelitis and cellulitis of his chronic left foot wound but for some time now the wound had begun to heal and he wore a boot to protect his foot and he follows regularly with Dr. Reese. However, a few days prior to admission Dr. Reese removed the boot to give him some rest off it but this lead to a very rapid breakdown and infection of the ulcer. He had fevers at home Tmax 103 in the ED the morning of admission. #Necrotizing fasciitis of Left foot s/p debridement patient remains afebrile with no leukocytosis. TTE showed no evidence of endocarditis -Follow-up final cultures and sensitivities from OR -PICC line placed - Patient will need a 4 week course of antibiotics however if he goes for amputation was duration may be decreased. -ID recommendations appreciated -Patient will be nothing by mouth at midnight for angiogram with Dr. Hernandez. -Lasix vancomycin trough was 16, continue current dose of vancomycin per discussion with Dr. Luke -Continue current regimen of vancomycin and ceftriaxone pending vancomycin trough tonight #Poorly controlled diabetes Hgb A1c 8.9. Blood sugars have been well controlled on this admission -Continue current NovoLog sliding scale -Continue with levemir 8 mg daily -Endocrine input appreciated #Severe diabetic neuropathy -Continue gabapentin 800mg TID #Chronic medical conditions-HTN, HLD, Depression -continue home medications Lovenox for DVT prophylaxis diabetic diet FC Problem List: 1. MRSA bacteremia 2. Necrotizing fasciitis 3. Non-pressure chronic ulcer of left heel and midfoot with fat layer exposed Pain Ratin Pain Location: L foot Pain Goal: Pain 4 or less Pain Plan: pain pathway Tomorrow's Labs & Rationales: cbc, bep Iman [facility]INO,[facility] 02/16/18 1142: Attending MD Review Statement Attending Statement Attending MD Statement: examined this patient, discuss w/resident/PA/ORGANISATIONAL PSYCHOLOGIST, agreed w/resident/PA/ORGANISATIONAL PSYCHOLOGIST, reviewed EMR data (avail), discussed with nursing Attending Assessment/Plan: No overnight issues. Remained stable. Plan for angio in am. NPO after midnight.
[2018-02-16 09:49] LABS: ABSOLUTE BASOPHIL COUNT 0 /CUMM (0.0-0.2); ABSOLUTE EOSINOPHIL COUNT 0.4 /CUMM (0.0-0.7); ABSOLUTE GRANULOCYTE CT 4.2 /CUMM (1.4-6.5); ABSOLUTE LYMPH COUNT 2.3 /CUMM (1.2-3.4); ABSOLUTE MONOCYTE COUNT 0.6 /CUMM (0.10-0.60); BASOPHIL % 0.6 % (0.0-2.0); EOSINOPHIL % 5.2 % (0-5); GRANULOCYTE % 55.5 % (42.2-75.2); HEMATOCRIT 30.4 % (42-52); MEAN CORPUSCULAR HGB 26.4 PG (27.0-31.0); MEAN CORPUSCULAR VOLUME 80.1 FL (80.0-94.0); MEAN PLATELET VOLUME 8.1 FL (7.4-10.4); PLATELET COUNT 329 /CUMM (130-400); RBC DISTRIBUTION WIDTH 16.9 % (11.5-14.5); RED BLOOD CELL CT 3.79 /CUMM (4.70-6.10); WHITE BLOOD CELL COUNT 7.5 /CUMM (4.8-10.8)
--- NOTE | 2018-02-16 12:11 | PN- Diabetes ---
Assessment/Plan Diabetes Assessment: The patient states he feels okay. He is presently on Levemir 8 units twice a day as well as sliding scale NovoLog. His blood sugars have been in good control. Fingerstick blood sugar this morning before breakfast is 140. Plan: Suggest continue the same insulin. Subjective Subjective: Feels okay Review of Systems Constitutional: Denies: chills, fever. Cardiovascular: Denies: chest pain. Respiratory: Denies: cough, short of breath. Gastrointestinal: Denies: abdominal pain, nausea, vomiting. Objective Last 24 Hrs of Vital Signs/I&O Vital Signs Date Time Temp Pulse Resp B/P B/P Pulse O2 O2 Flow FiO2 Mean Ox Delivery Rate 02/16 0628 98.8 51 20 100/70 93 Room Air 02/15 2244 98.5 63 18 118/73 92 Room Air 02/15 1414 98.6 66 16 113/64 94 Room Air Intake & Output 02/16 1600 02/16 0800 02/16 0000 Intake Total 550 800 Output Total 493 952 9302 Balance -450 -75 -550 Intake, IV 550 Intake, Oral 0 800 Number 0 Bowel Movements Output, Urine 475 778 5085 Vital Signs Date Time Temp Pulse Resp B/P B/P Pulse O2 O2 Flow FiO2 Mean Ox Delivery Rate 02/16 0628 98.8 51 20 100/70 93 Room Air 02/15 2244 98.5 63 18 118/73 92 Room Air 02/15 1414 98.6 66 16 113/64 94 Room Air Intake & Output 02/16 1600 02/16 0800 02/16 0000 Intake Total 550 800 Output Total 805 589 6967 Balance -450 -75 -550 Intake, IV 550 Intake, Oral 0 800 Number 0 Bowel Movements Output, Urine 143 391 1248 Physical Exam General Appearance: alert, awake, comfortable Neck: normal inspection Respiratory: normal breath sounds Cardiovascular: regular rate/rhythm Abdomen: normal bowel sounds, soft Current Medications: Current Medications Sig/Rafaela Start time Last Medication Dose Route Stop Time Status Admin Acetaminophen 650 MG Q6P PRN 02/08 1545 AC 02/16 PO 0546 Acetaminophen 1,000 MG Q6P PRN 02/08 1545 AC 02/14 IV 1156 Aripiprazole 10 MG DAILY 02/09 1047 AC 02/16 PO 0957 Benztropine Mesylate 1 MG BID 02/09 1047 AC 02/16 PO 0957 Ceftriaxone Sodium 2,000 MG DAILY@1700 02/09 1700 AC 02/15 IV 1637 Citalopram 30 MG DAILY 02/09 1047 AC 02/16 Hydrobromide PO 0957 Docusate Sodium 100 MG DAILY 02/11 1720 AC 02/16 PO 0957 Gabapentin 800 MG TID PRN 02/09 1030 AC 02/11 PO 0800 Gemfibrozil 600 MG BID 02/09 1047 AC 02/16 PO 0957 Insulin Aspart 0 TIDAC/HS 02/11 1200 AC 02/16 SC 0838 Insulin Detemir 8 UNITS DAILY 02/14 1000 AC 02/16 SC 0957 Mirtazapine 15 MG AT BEDTIME PRN 02/09 2200 AC 02/15 PO 2147 Morphine Sulfate 2 MG Q3P PRN 02/14 0830 AC 02/16 IV 1005 Ondansetron HCl 4 MG Q6P PRN 02/08 2245 AC IV Rosuvastatin Calcium 20 MG 1700 02/09 1700 AC 02/15 PO 1637 Senna 187 MG AT BEDTIME 02/11 2200 AC PO Vancomycin HCl 2,000 MG Q12H 02/12 1330 AC 02/16 Dextrose/Water 500 ML IV 0105 Findings Pertinent Lab/Sree Results: Laboratory Tests 02/16 0550 Chemistry Sodium (137 - 145 mmol/L) 137 Potassium (3.5 - 5.1 mmol/L) 4.2 Chloride (98 - 107 mmol/L) 101 Carbon Dioxide (22 - 30 mmol/L) 28 Anion Gap (5 - 16) 9 BUN (9 - 20 mg/dL) 6 L Creatinine (0.7 - 1.2 mg/dL) 0.7 Estimated GFR (>60 ml/min) > 60 BUN/Creatinine Ratio (7 - 25 %) 8.6 Hematology CBC w Diff NO MAN DIFF REQ WBC (4.8 - 10.8 /CUMM) 7.5 RBC (4.70 - 6.10 /CUMM) 3.79 L Hgb (14.0 - 18.0 G/DL) 10.0 L Hct (42 - 52 %) 30.4 L MCV (80.0 - 94.0 FL) 80.1 MCH (27.0 - 31.0 PG) 26.4 L MCHC (33.0 - 37.0 G/DL) 33.0 RDW (11.5 - 14.5 %) 16.9 H Plt Count (130 - 400 /CUMM) 329 MPV (7.4 - 10.4 FL) 8.1 Gran % (42.2 - 75.2 %) 55.5 Lymphocytes % (20.5 - 51.1 %) 30.9 Monocytes % (1.7 - 9.3 %) 7.8 Eosinophils % (0 - 5 %) 5.2 H Basophils % (0.0 - 2.0 %) 0.6 Absolute Granulocytes (1.4 - 6.5 /CUMM) 4.2 Absolute Lymphocytes (1.2 - 3.4 /CUMM) 2.3 Absolute Monocytes (0.10 - 0.60 /CUMM) 0.6 Absolute Eosinophils (0.0 - 0.7 /CUMM) 0.4 Absolute Basophils (0.0 - 0.2 /CUMM) 0
[2018-02-16 15:00] VITALS: BP 110/80
[2018-02-16 22:34] VITALS: BP 126/70
[2018-02-17 06:34] VITALS: BP 116/68
--- NOTE | 2018-02-17 07:40 | PN- Housestaff ---
Vonda PATINO,Stef 02/17/18 0740: Subjective Follow-up For: Osteomyelitis Diabetes MRSA bacteremia Subjective: Patient was seen and examined at bedside. He is resting comfortably. He had no acute events overnight. He went for a angiogram of the right foot this morning and tolerated the procedure well. He has no new complaints, currently rates his left foot pain as a 5/10. Review of Systems Constitutional: Reports: no symptoms. EENTM: Reports: no symptoms. Cardiovascular: Reports: no symptoms. Respiratory: Reports: no symptoms. Gastrointestinal: Reports: no symptoms. Genitourinary: Reports: no symptoms. Musculoskeletal: Reports: no symptoms. Skin: Reports: no symptoms. Objective Last 24 Hrs of Vital Signs/I&O Vital Signs Date Time Temp Pulse Resp B/P B/P Pulse O2 O2 Flow FiO2 Mean Ox Delivery Rate 02/17 0634 98.9 55 18 116/68 92 Room Air 02/16 2234 99.0 54 18 126/70 92 02/16 1500 98.7 65 20 110/80 95 Intake & Output 02/17 0800 02/17 0000 02/16 1600 Intake Total 850 1060 Output Total 6476 766 2644 Balance -250 460 -1000 Intake, IV 850 580 Intake, Oral 480 Output, 250 Drainage Output, Urine 1100 600 750 Physical Exam General Appearance: Alert, Oriented X3, Cooperative Skin Temp/Moisture Exam: Warm/Dry Cardiovascular: Regular Rate, Normal S1, Normal S2 Lungs: Clear to Auscultation, Normal Air Movement Abdomen: Normal Bowel Sounds, Soft, No Tenderness Neurological: Normal Speech, Normal Tone, numbness of the toes bilaterally, this is his baseline Extremities: L foot wrapped in kerlex with wound vac in place Current Medications: Current Medications Sig/Rafaela Start time Last Medication Dose Route Stop Time Status Admin Acetaminophen 650 MG Q6P PRN 02/08 1545 AC 02/16 PO 0546 Acetaminophen 1,000 MG Q6P PRN 02/08 1545 AC 02/14 IV 1156 Aripiprazole 10 MG DAILY 02/09 1047 AC 02/16 PO 0957 Artificial Tears 2 GTT TID 02/16 2314 AC 02/17 OPH 0204 Benztropine Mesylate 1 MG BID 02/09 1047 AC 02/16 PO 2103 Ceftriaxone Sodium 2,000 MG DAILY@1700 02/09 1700 AC 02/16 IV 1612 Citalopram 30 MG DAILY 02/09 1047 AC 02/16 Hydrobromide PO 0957 Dextrose/Sodium 1,000 ML Q13H 02/17 0000 AC 02/17 Chloride IV 0048 Docusate Sodium 100 MG DAILY 02/11 1720 AC 02/16 PO 0957 Gabapentin 800 MG TID PRN 02/09 1030 AC 02/11 PO 0800 Gemfibrozil 600 MG BID 02/09 1047 AC 02/16 PO 2104 Insulin Aspart 0 TIDAC/HS 02/11 1200 DC 02/16 SC 02/17 0000 1700 Insulin Detemir 8 UNITS DAILY 02/14 1000 AC 02/16 SC 0957 Insulin Human Regular 0 Q6 02/16 2359 AC 02/17 SC 0524 Mirtazapine 15 MG AT BEDTIME PRN 02/09 2200 AC 02/15 PO 2147 Morphine Sulfate 3 MG Q3P PRN 02/16 1500 AC 02/17 IV 0502 Morphine Sulfate 2 MG Q3P PRN 02/14 0830 DC 02/16 IV 1303 Ondansetron HCl 4 MG Q6P PRN 02/08 2245 AC IV Rosuvastatin Calcium 20 MG 1700 02/09 1700 AC 02/16 PO 1613 Senna 187 MG AT BEDTIME 02/11 2200 AC PO Vancomycin HCl 2,000 MG Q12H 02/12 1330 AC 02/17 Dextrose/Water 500 ML IV 0049 Last 24 Hrs of Lab/Sree Results Last 24 Hrs of Labs/Mics: Laboratory Tests 02/17/18 0500: CBC w Diff Pending, WBC Pending, RBC Pending, Hgb Pending, Hct Pending, MCV Pending, MCH Pending, MCHC Pending, RDW Pending, Plt Count Pending, MPV Pending Assessment/Plan Assessment: Patient is a 52-year-old male with past medical history of poorly controlled diabetes, chronic nonhealing ulcer on the plantar aspect of the left foot, diabetic neuropathy, osteomyelitis and MRSA. He presented with complaints of breakdown of his chronic nonhealing ulcer, with serous drainage, worsening erythema, increased warmth and severe pain of the left foot restarted a few days ago. He has had a history of recurrent osteomyelitis and cellulitis of his chronic left foot wound but for some time now the wound had begun to heal and he wore a boot to protect his foot and he follows regularly with Dr. Reese. However, a few days prior to admission Dr. Reese removed the boot to give him some rest off it but this lead to a very rapid breakdown and infection of the ulcer. He had fevers at home Tmax 103 in the ED the morning of admission. #Necrotizing fasciitis of Left foot s/p debridement Patient went for angiogram of the left leg today, tolerated the procedure well -Follow-up vascular surgery recommendations for potential BKA -PICC line placed - Patient will need a 4 week course of antibiotics however if he goes for amputation was duration may be decreased. -ID recommendations appreciated -Continue current regimen of vancomycin and ceftriaxone #Poorly controlled diabetes Hgb A1c 8.9. Blood sugars have been well controlled on this admission -Continue current NovoLog sliding scale -Continue with levemir 8 mg daily -Endocrine input appreciated #Severe diabetic neuropathy -Continue gabapentin 800mg TID #Chronic medical conditions-HTN, HLD, Depression -continue home medications Lovenox for DVT prophylaxis diabetic diet FC Problem List: 1. MRSA bacteremia 2. Necrotizing fasciitis Pain Ratin Pain Location: L foot Pain Goal: Remain pain free Pain Plan: pain pathway Tomorrow's Labs & Rationales: none Valarie Chi MD 02/17/18 1402: Attending MD Review Statement Attending Statement Attending MD Statement: examined this patient, discuss w/resident/PA/SHAPER MACHINE HAND, agreed w/resident/PA/SHAPER MACHINE HAND, reviewed EMR data (avail) Attending Assessment/Plan: Will follow up angiogram and vascular recommendations, continue IV antibiotics, follow ID recommendations
[2018-02-17 08:29] LABS: ABSOLUTE BASOPHIL COUNT 0 /CUMM (0.0-0.2); ABSOLUTE EOSINOPHIL COUNT 0.4 /CUMM (0.0-0.7); ABSOLUTE GRANULOCYTE CT 4.7 /CUMM (1.4-6.5); ABSOLUTE LYMPH COUNT 2.4 /CUMM (1.2-3.4); ABSOLUTE MONOCYTE COUNT 0.4 /CUMM (0.10-0.60); BASOPHIL % 0.5 % (0.0-2.0); EOSINOPHIL % 4.5 % (0-5); GRANULOCYTE % 59.5 % (42.2-75.2); HEMATOCRIT 31.5 % (42-52); MEAN CORPUSCULAR HGB 26.6 PG (27.0-31.0); MEAN CORPUSCULAR VOLUME 80.4 FL (80.0-94.0); MEAN PLATELET VOLUME 8.3 FL (7.4-10.4); PLATELET COUNT 313 /CUMM (130-400); RBC DISTRIBUTION WIDTH 16.4 % (11.5-14.5); RED BLOOD CELL CT 3.92 /CUMM (4.70-6.10)
--- NOTE | 2018-02-17 08:29 | PN- Diabetes ---
Assessment/Plan Diabetes Assessment: Patient is a 52-year-old male with past medical history of uncontrolled diabetes type 2, chronic nonhealing ulcer of left foot, diabetic neuropathy, osteomyelitis status post amputation of left 5th toe. He was admitted for necrotizing fasciitis band gangrene of left foot with positive blood culture of gram positive cocci. He underwent surgery for debrivement. He was on Levemir 8 units daily, Novolog coverage before meals and Novolog coverage at bedtime. His FSGs were 140, 166, 197, 138, 156 and 141. He is in OR at this moment. Plan: after he is back from OR and ready to eat meals, please restart previous insulin regimen--- Llevemir 8 units daily, Novolog coverage before meals and Novolog coverage at bedtime. monitor FSGs, will follow. Subjective Subjective: Patient is in OR at this moment. Objective Last 24 Hrs of Vital Signs/I&O Vital Signs Date Time Temp Pulse Resp B/P B/P Pulse O2 O2 Flow FiO2 Mean Ox Delivery Rate 02/17 0634 98.9 55 18 116/68 92 Room Air 02/16 2234 99.0 54 18 126/70 92 02/16 1500 98.7 65 20 110/80 95 Intake & Output 02/17 1600 02/17 0800 02/17 0000 Intake Total 850 1060 Output Total 1100 600 Balance -250 460 Intake, IV 850 580 Intake, Oral 480 Output, Urine 1100 600 Findings Pertinent Lab/Sree Results: Laboratory Tests 02/17 0500 Hematology CBC w Diff Pending WBC Pending RBC Pending Hgb Pending Hct Pending MCV Pending MCH Pending MCHC Pending RDW Pending Plt Count Pending MPV Pending
[2018-02-17 10:30] VITALS: BP 134/80
--- NOTE | 2018-02-17 13:00 | PN- Infect Dx ---
Subjective Subjective: Afebrile. He notes some discomfort in the left foot but this has overall improved. Objective Last 24 Hrs of Vital Signs/I&O Vital Signs Date Time Temp Pulse Resp B/P B/P Pulse O2 O2 Flow FiO2 Mean Ox Delivery Rate 02/17 1030 97.7 53 16 134/80 95 Room Air 02/17 0634 98.9 55 18 116/68 92 Room Air 02/16 2234 99.0 54 18 126/70 92 02/16 1500 98.7 65 20 110/80 95 Intake & Output 02/17 1600 02/17 0800 02/17 0000 Intake Total 850 1060 Output Total 1100 600 Balance -250 460 Intake, IV 850 580 Intake, Oral 480 Output, Urine 1100 600 Physical Exam Other Physical Findings: He appears comfortable in no acute distress Lungs are clear Heart regular rhythm with no murmur Extremities left foot dressing intact, with wound VAC in place; PICC in the right upper extremity with no inflammation at the site Results Last 24 Hours of Lab Results: Laboratory Tests 02/17 0500 Hematology CBC w Diff NO MAN DIFF REQ WBC (4.8 - 10.8 /CUMM) 8.0 RBC (4.70 - 6.10 /CUMM) 3.92 L Hgb (14.0 - 18.0 G/DL) 10.4 L Hct (42 - 52 %) 31.5 L MCV (80.0 - 94.0 FL) 80.4 MCH (27.0 - 31.0 PG) 26.6 L MCHC (33.0 - 37.0 G/DL) 33.0 RDW (11.5 - 14.5 %) 16.4 H Plt Count (130 - 400 /CUMM) 313 MPV (7.4 - 10.4 FL) 8.3 Gran % (42.2 - 75.2 %) 59.5 Lymphocytes % (20.5 - 51.1 %) 29.9 Monocytes % (1.7 - 9.3 %) 5.6 Eosinophils % (0 - 5 %) 4.5 Basophils % (0.0 - 2.0 %) 0.5 Absolute Granulocytes (1.4 - 6.5 /CUMM) 4.7 Absolute Lymphocytes (1.2 - 3.4 /CUMM) 2.4 Absolute Monocytes (0.10 - 0.60 /CUMM) 0.4 Absolute Eosinophils (0.0 - 0.7 /CUMM) 0.4 Absolute Basophils (0.0 - 0.2 /CUMM) 0 Last 24 Hours of Sree Results: No new cultures Assessment/Plan ID Impression: Stable, with temperatures and white blood cell count remaining normal, on Vancomycin and Ceftriaxone for osteomyelitis of the left foot secondary to MRSA and Klebsiella, with secondary bacteremia, now 1 week status post repeat debridement of necrotic bone of the left foot and I&D of the left ankle, with placement of a wound VAC. His Vancomycin trough level was 16 and is therapeutic. He underwent an angiogram of the left leg earlier today to assess the feasibility of healing a BKA and will await vascular surgical follow-up. Suggestion: 1. Await Vascular surgery follow-up 2. Continue Vancomycin and Ceftriaxone
--- NOTE | 2018-02-17 14:28 | Operative Report ---
Operative/Inv Procedure Report Surgery Date: 02/17/18 Name of Procedure: - ultrasound-guided right common femoral artery access - Aortogram - Second order left leg angiogram Pre-Operative Diagnosis: Chronic nonhealing left foot wound Post-Operative Diagnosis: Same Estimated Blood Loss: scant Surgeon/Trumpet Player: Trent San MD Anesthesia: moderate sedation Operative/Procedure Note Note: 53-year-old man with poorly controlled diabetes presented chronically nonhealing wound of left foot despite wound care and antibiotic therapy. The patient was scheduled for left leg angiogram with possible interventions. The nature of the procedure including its possible complications which includes but not limited to bleeding, infection, injury to vessels, blood clots, and need for re- intervention were discussed. An informed consent was obtained. Patient was taken to the operating room and placed supine on the table. A timeout was called according to protocol. After satisfactory induction of sedation, the patient was prepped and draped in standard surgical fashion. Using an ultrasound, right common femoral artery was accessed using micropuncture technique. A Bentson wire was advanced into the aorta under direct fluoroscopic guidance. The micropuncture sheath was exchanged with a 5 Tajik sheath. Omni Flush catheter was advanced over the wire and placed into the abdominal aorta. From this position, an aortogram was performed which showed Patent aorta, bilateral common iliac, external iliac, and intracardiac arteries with no significant disease. With the aid of a Omni flush catheter and Bentson wire, left iliac artery system was selected. The Omni flush catheter was exchanged with a 5 Tajik glide catheter which was advanced over the wire and placed into the proximal left common femoral artery. From this position, left leg angiogram was performed Which showed patent common femoral and profunda femoris. SFA is patent. The mid SFA was selected using glide catheter and Bentson wire. The catheter was advanced over the wire and placed into the mid SFA. From this position, the remaining of the left leg angiogram was performed which showed patent distal SFA , popliteal, and three-vessel runoff to the foot. Wires and catheters were removed. Exoseal device was used for closing the puncture site. 5 minutes of manual pressure was applied. Sterile dressing was applied. The patient was then taken to the recovery room in stable condition.
[2018-02-17 14:31] VITALS: BP 108/60
[2018-02-17 22:32] VITALS: BP 112/74
[2018-02-18 05:50] VITALS: BP 94/60
--- NOTE | 2018-02-18 07:16 | PN- Housestaff ---
Vonda PATINO,Stef 02/18/18 0715: Subjective Follow-up For: Necrotizing fasciitis Chronic diabetic foot wound MRSA bacteremia Subjective: Patient was seen and examined at bedside. He is resting comfortably. He had no acute events overnight. His left foot pain is slightly elevated today approximately 6/10. He has no other complaints currently. Review of Systems Constitutional: Reports: no symptoms. EENTM: Reports: no symptoms. Cardiovascular: Reports: no symptoms. Respiratory: Reports: no symptoms. Gastrointestinal: Reports: no symptoms. Genitourinary: Reports: no symptoms. Musculoskeletal: Reports: no symptoms. Objective Last 24 Hrs of Vital Signs/I&O Vital Signs Date Time Temp Pulse Resp B/P B/P Pulse O2 O2 Flow FiO2 Mean Ox Delivery Rate 02/18 0550 98.2 54 20 94/60 92 Room Air 02/17 2232 98.2 56 20 112/74 94 Room Air 02/17 1431 97.8 60 20 108/60 96 02/17 1030 97.7 53 16 134/80 95 Room Air Intake & Output 02/18 0800 02/18 0000 02/17 1600 Intake Total 8748 546 3544 Output Total 467 406 5925 Balance 180 -250 0 Intake, IV 600 500 Intake, Oral 480 350 900 Output, Urine 114 581 0807 Physical Exam General Appearance: Alert, Oriented X3, Cooperative Skin Temp/Moisture Exam: Warm/Dry Cardiovascular: Regular Rate, Normal S1, Normal S2 Lungs: Clear to Auscultation, Normal Air Movement Abdomen: Normal Bowel Sounds, Soft, No Tenderness Extremities: L foot wrapped in Kerlex, wound vac in place Current Medications: Current Medications Sig/Rafaela Start time Last Medication Dose Route Stop Time Status Admin Acetaminophen 650 MG Q6P PRN 02/08 1545 AC 02/18 PO 0300 Acetaminophen 1,000 MG Q6P PRN 02/08 1545 AC 02/18 IV 0558 Aripiprazole 10 MG DAILY 02/09 1047 AC 02/17 PO 1112 Artificial Tears 2 GTT TID 02/16 2314 AC 02/17 OPH 205 Benztropine Mesylate 1 MG BID 02/09 1047 AC 02/17 PO 205 Ceftriaxone Sodium 2,000 MG DAILY@1700 02/09 1700 AC 02/17 IV 1722 Citalopram 30 MG DAILY 02/097 02/17 Hydrobromide PO 1112 Dextrose/Sodium 1,000 ML Q13H 02/17 0000 DC 02/17 Chloride IV 0048 Docusate Sodium 100 MG DAILY 02/11 1720 AC 02/17 PO 1112 Gabapentin 800 MG TID PRN 02/09 1030 AC 02/11 PO 0800 Gemfibrozil 600 MG BID 02/09 1047 AC 02/17 PO 2051 Insulin Aspart 0 TIDAC/HS 02/17 1200 AC 02/17 SC 1722 Insulin Detemir 8 UNITS DAILY 02/14 1000 AC 02/17 SC 1111 Insulin Human Regular 0 Q6 02/16 2359 DC 02/17 SC 0524 Mirtazapine 15 MG AT BEDTIME PRN 02/09 2200 AC 02/15 PO 2147 Morphine Sulfate 3 MG Q3P PRN 02/16 1500 AC 02/18 IV 0430 Ondansetron HCl 4 MG Q6P PRN 02/08 2245 AC IV Patient Medication 1 ED ONE ONE 02/17 1515 DC Teaching ED 02/17 1516 Rosuvastatin Calcium 20 MG 1700 02/09 1700 AC 02/17 PO 1723 Senna 187 MG AT BEDTIME 02/11 2200 AC PO Vancomycin HCl 2,000 MG Q12H 02/12 1330 AC 02/18 Dextrose/Water 500 ML IV 0120 Assessment/Plan Assessment: Patient is a 52-year-old male with past medical history of poorly controlled diabetes, chronic nonhealing ulcer on the plantar aspect of the left foot, diabetic neuropathy, osteomyelitis and MRSA. He presented with complaints of breakdown of his chronic nonhealing ulcer, with serous drainage, worsening erythema, increased warmth and severe pain of the left foot restarted a few days ago. He has had a history of recurrent osteomyelitis and cellulitis of his chronic left foot wound but for some time now the wound had begun to heal and he wore a boot to protect his foot and he follows regularly with Dr. Reese. However, a few days prior to admission Dr. Reese removed the boot to give him some rest off it but this lead to a very rapid breakdown and infection of the ulcer. He had fevers at home Tmax 103 in the ED the morning of admission. #Necrotizing fasciitis of Left foot s/p debridement, with MRSA bacteremia Repeat blood cultures are negative. Wound VAC in place. -Follow-up vascular surgery recommendations for potential BKA -PICC line placed - Patient will need a 4 week course of antibiotics however if he goes for amputation was duration may be decreased. -ID recommendations appreciated -Continue current regimen of vancomycin and ceftriaxone -Patient is now stable for discharge and awaiting placement, no plan for BKA on this admission, will follow up with vascular surgery as an outpatient. #Poorly controlled diabetes Hgb A1c 8.9. Blood sugars have been well controlled on this admission -Continue current NovoLog sliding scale -increased levemir to 10 mg daily -Endocrine input appreciated #Severe diabetic neuropathy -Continue gabapentin 800mg TID #Chronic medical conditions-HTN, HLD, Depression -continue home medications Lovenox for DVT prophylaxis diabetic diet FC Problem List: 1. MRSA bacteremia 2. Necrotizing fasciitis 3. Non-pressure chronic ulcer of left heel and midfoot with fat layer exposed Pain Ratin Pain Location: L foot Pain Goal: Remain pain free Pain Plan: Converted to oral pain regimen today Tomorrow's Labs & Rationales: cbc, bep Valarie Chi MD 02/18/18 1058: Attending MD Review Statement Attending Statement Attending MD Statement: examined this patient, discuss w/resident/PA/COORDINATOR OF EVALUATION, agreed w/resident/PA/COORDINATOR OF EVALUATION, reviewed EMR data (avail) Attending Assessment/Plan: 52M PMH Type 2 insulin dependent diabetes, peripheral neuropathy, s/p multiple surgeries on the left foot including left fifth toe amputation, resection of the left fourth metatarsal bone and distal cuboid of the left foot, with a nonhealing left foot wound since his last surgery 15 months prior presenting with worsening of the left foot with erythema and drainage with necrotizing fasciitis and gas gangrene, now s/p incision and drainage x2, most recently on , with OR cultures growing mRSA and Klebsiella, PICC placed 02/13. Angiogram 02/17 shows patent LE vessels. Doing well today. Pain better controlled. 1. mRSA and Klebsiella acute osteomyelitis of the left foot 2. Necrotizing fasciitis and gas gangrene of the left foot 3. Sepsis due to above (resolved) 4. Uncontrolled Type 2 IDDM 5. Diabetic peripheral polyneuropathy Plan - Continue on general medicine - Continue Vancomycin and Ceftriaxone - Follow ID, podiatry, vascular recommendations - Continue home medications - DVT PPx - Awaiting vascular recommendations and if any intervention is to be done during this stay before discharge planning can begin
--- NOTE | 2018-02-18 12:45 | PN- Diabetes ---
Assessment/Plan Diabetes Assessment: Patient is a 52-year-old male with past medical history of uncontrolled diabetes type 2, chronic nonhealing ulcer of left foot, diabetic neuropathy, osteomyelitis status post amputation of left 5th toe. He was admitted for necrotizing fasciitis band gangrene of left foot with positive blood culture of gram positive cocci. He underwent surgery for debrivement and he went to OR again on 02/17/2018. He was on Levemir 8 units daily, Novolog coverage before meals and Novolog coverage at bedtime. His FSGs were 146, 169, 169, 160 and 157. Plan: 1. increase Levemir to 10 units daily; 2. continue the current Novolog coverage before meals and Novolog coverage at bedtime; 3. monitor FSGs. will follow. Subjective Subjective: He has no special complaints this morning. Objective Last 24 Hrs of Vital Signs/I&O Vital Signs Date Time Temp Pulse Resp B/P B/P Pulse O2 O2 Flow FiO2 Mean Ox Delivery Rate 02/18 0550 98.2 54 20 94/60 92 Room Air 02/17 2232 98.2 56 20 112/74 94 Room Air 02/17 1431 97.8 60 20 108/60 96 Intake & Output 02/18 1600 02/18 0800 02/18 0000 Intake Total 1080 350 Output Total 600 900 600 Balance -600 180 -250 Intake, IV 600 Intake, Oral 480 350 Output, Urine 600 900 600
--- NOTE | 2018-02-18 14:04 | Event Note ---
Event Note Event Note: I just spoke with Vascular Surgeon Dr. San over the phone. He does not plan to do a BKA for this patient on this admission, wants patient to follow up with him as outpatient.
[2018-02-18 14:20] VITALS: BP 100/75
[2018-02-18 22:20] VITALS: BP 118/60
[2018-02-19 06:20] VITALS: BP 102/68
--- NOTE | 2018-02-19 07:30 | PN- Housestaff ---
Vonda PATINO,Stef 02/19/18 0730: Subjective Follow-up For: Necrotizing fasciitis MRSA bacteremia Subjective: Patient was seen and examined at bedside. He is resting comfortably. He reports continued pain of his left foot approximately 6/10. Review of Systems Constitutional: Reports: no symptoms. EENTM: Reports: no symptoms. Cardiovascular: Reports: no symptoms. Respiratory: Reports: no symptoms. Gastrointestinal: Reports: no symptoms. Genitourinary: Reports: no symptoms. Musculoskeletal: Reports: joint pain. Objective Last 24 Hrs of Vital Signs/I&O Vital Signs Date Time Temp Pulse Resp B/P B/P Pulse O2 O2 Flow FiO2 Mean Ox Delivery Rate 02/19 0620 97.7 57 18 102/68 93 Room Air 02/18 2220 98.5 51 18 118/60 95 Room Air 02/18 1420 97.7 65 18 100/75 97 Intake & Output 02/19 0800 02/19 0000 02/18 1600 Intake Total 138 034 7223 Output Total 1250 1000 1000 Balance -450 -800 200 Intake, IV 500 500 Intake, Oral 300 200 700 Number 3 2 Bowel Movements Output, Urine 1250 1000 1000 Physical Exam General Appearance: Alert, Oriented X3, Cooperative, No Acute Distress Sepsis Skin Exam (color): Normal for Ethnicity HEENT: Atraumatic Cardiovascular: Regular Rate, Normal S1, Normal S2 Lungs: Clear to Auscultation, Normal Air Movement Abdomen: Normal Bowel Sounds, Soft, No Tenderness Neurological: Normal Speech, Normal Tone, diminished sensation of the toes bilaterally Current Medications: Current Medications Sig/Rafaela Start time Last Medication Dose Route Stop Time Status Admin Acetaminophen 650 MG .STK-MED ONE 02/18 1512 DC PO 02/18 1513 Acetaminophen 650 MG Q6P PRN 02/08 1545 AC 02/18 PO 0300 Acetaminophen 1,000 MG Q6P PRN 02/08 1545 AC 02/18 IV 1516 Aripiprazole 10 MG DAILY 02/09 1047 AC 02/18 PO 0908 Artificial Tears 2 GTT TID 02/16 2314 AC 02/17 OPH 205 Benztropine Mesylate 1 MG BID 02/09 1047 AC 02/18 PO 211 Ceftriaxone Sodium 2,000 MG DAILY@1700 02/09 1700 AC 02/18 IV 1700 Citalopram 30 MG DAILY 02/09 1047 AC 02/18 Hydrobromide PO 0908 Docusate Sodium 100 MG DAILY 02/11 1720 AC 02/18 PO 0908 Gabapentin 800 MG TID PRN 02/09 1030 AC 02/11 PO 0800 Gemfibrozil 600 MG BID 02/09 1047 AC 02/18 PO 2110 Insulin Aspart 0 TIDAC/HS 02/17 1200 AC 02/18 SC 1700 Insulin Detemir 10 UNITS DAILY 02/19 1000 AC SC Insulin Detemir 8 UNITS DAILY 02/14 1000 DC 02/18 SC 0908 Mirtazapine 15 MG AT BEDTIME PRN 02/09 2200 AC 02/18 PO 2249 Morphine Sulfate 2 MG Q6-PRN PRN 02/18 0815 DC 02/18 IV 0805 Morphine Sulfate 3 MG Q3P PRN 02/16 1500 DC 02/18 IV 0430 Ondansetron HCl 4 MG Q6P PRN 02/08 2245 AC IV Oxycodone HCl 10 MG Q12 02/18 1000 AC 02/18 PO 2110 Oxycodone/ 2 TAB Q6P PRN 02/18 0800 AC 02/19 Acetaminophen PO 0202 Oxycodone/ 1 TAB Q6P PRN 02/18 0800 AC Acetaminophen PO Rosuvastatin Calcium 20 MG 1700 02/09 1700 AC 02/18 PO 1700 Senna 187 MG AT BEDTIME 02/11 2200 AC 02/18 PO 2110 Vancomycin HCl 2,000 MG Q12H 02/12 1330 AC 02/19 Dextrose/Water 500 ML IV 0155 Last 24 Hrs of Lab/Sree Results Last 24 Hrs of Labs/Mics: Laboratory Tests 02/19/18 0622: Sodium Pending, Potassium Pending, Chloride Pending, Carbon Dioxide Pending, Anion Gap Pending, BUN Pending, Creatinine Pending, BUN/Creatinine Ratio Pending , CBC w Diff Pending, WBC Pending, RBC Pending, Hgb Pending, Hct Pending, MCV Pending, MCH Pending, MCHC Pending, RDW Pending, Plt Count Pending, MPV Pending Assessment/Plan Assessment: Patient is a 52-year-old male with past medical history of poorly controlled diabetes, chronic nonhealing ulcer on the plantar aspect of the left foot, diabetic neuropathy, osteomyelitis and MRSA. He presented with complaints of breakdown of his chronic nonhealing ulcer, with serous drainage, worsening erythema, increased warmth and severe pain of the left foot restarted a few days ago. He has had a history of recurrent osteomyelitis and cellulitis of his chronic left foot wound but for some time now the wound had begun to heal and he wore a boot to protect his foot and he follows regularly with Dr. Reese. However, a few days prior to admission Dr. Reese removed the boot to give him some rest off it but this lead to a very rapid breakdown and infection of the ulcer. He had fevers at home Tmax 103 in the ED the morning of admission. #Necrotizing fasciitis of Left foot s/p debridement, with MRSA bacteremia Repeat blood cultures are negative. Wound VAC in place. - PICC line in placed - Patient will need a 4 week course of antibiotics however if he goes for amputation was duration may be decreased. - ID recommendations appreciated - Continue current regimen of vancomycin and ceftriaxone - Patient is now stable for discharge and awaiting placement, no plan for BKA on this admission, will follow up with vascular surgery as an outpatient. -repeat Vanc trough and ESR tonight prior to vancomycin dose #Poorly controlled diabetes Hgb A1c 8.9. Blood sugars have been well controlled on this admission -Continue current NovoLog sliding scale -continue levemir to 10 mg daily -Endocrine input appreciated #Severe diabetic neuropathy -Continue gabapentin 800mg TID #Chronic medical conditions-HTN, HLD, Depression -continue home medications Lovenox for DVT prophylaxis diabetic diet FC Problem List: 1. MRSA bacteremia 2. Necrotizing fasciitis 3. Non-pressure chronic ulcer of left heel and midfoot with fat layer exposed Pain Ratin Pain Location: L foot Pain Goal: Pain 4 or less Pain Plan: pain pathway Tomorrow's Labs & Rationales: vanc trough, ESR Alka Dietz MD 02/19/18 1428: Attending MD Review Statement Attending Statement Attending MD Statement: examined this patient, discuss w/resident/PA/MICROCOMPUTER SUPPORT SPECIALIST, agreed w/resident/PA/MICROCOMPUTER SUPPORT SPECIALIST, reviewed EMR data (avail), discussed with nursing, discussed with case mgmt, reviewed images Attending Assessment/Plan: 53-year-old male past medical history of diabetes, peripheral vascular disease who is here with treatment of necrotizing fasciitis and polymicrobial osteo-. He has a PICC line and he is on Vanco/ ceftriaxone and as per ID he needs to remain on this till March 10. Endocrine is helping us with uncontrolled hyperglycemia. Case management is actively working on placement.
[2018-02-19 08:59] LABS: ABSOLUTE BASOPHIL COUNT 0 /CUMM (0.0-0.2); ABSOLUTE EOSINOPHIL COUNT 0.4 /CUMM (0.0-0.7); ABSOLUTE GRANULOCYTE CT 3.9 /CUMM (1.4-6.5); ABSOLUTE LYMPH COUNT 2.2 /CUMM (1.2-3.4); ABSOLUTE MONOCYTE COUNT 0.5 /CUMM (0.10-0.60); BASOPHIL % 0.5 % (0.0-2.0); EOSINOPHIL % 5.5 % (0-5); GRANULOCYTE % 55.7 % (42.2-75.2); HEMATOCRIT 31.5 % (42-52); MEAN CORPUSCULAR HGB 26.1 PG (27.0-31.0); MEAN CORPUSCULAR HGB CONC 32.6 G/DL (33.0-37.0); MEAN CORPUSCULAR VOLUME 80.2 FL (80.0-94.0); MEAN PLATELET VOLUME 8.7 FL (7.4-10.4); PLATELET COUNT 273 /CUMM (130-400); RBC DISTRIBUTION WIDTH 16.6 % (11.5-14.5); RED BLOOD CELL CT 3.92 /CUMM (4.70-6.10)
--- NOTE | 2018-02-19 13:24 | PN- Infect Dx ---
Subjective Subjective: Afebrile. He notes mild discomfort in the left foot Objective Last 24 Hrs of Vital Signs/I&O Vital Signs Date Time Temp Pulse Resp B/P B/P Pulse O2 O2 Flow FiO2 Mean Ox Delivery Rate 02/19 1304 Room Air 02/19 0620 97.7 57 18 102/68 93 Room Air 02/18 2220 98.5 51 18 118/60 95 Room Air 02/18 1420 97.7 65 18 100/75 97 Intake & Output 02/19 1600 02/19 0800 02/19 0000 Intake Total 800 200 Output Total 1250 1000 Balance -450 -800 Intake, IV 500 Intake, Oral 300 200 Number 3 2 Bowel Movements Output, Urine 1250 1000 Physical Exam Other Physical Findings: He appears comfortable in no acute distress Extremities left foot dressing intact, with wound VAC in place; PICC in the right upper extremity with no inflammation at the site Results Last 24 Hours of Lab Results: Laboratory Tests 02/19 0622 Chemistry Sodium (137 - 145 mmol/L) 140 Potassium (3.5 - 5.1 mmol/L) 4.4 Chloride (98 - 107 mmol/L) 100 Carbon Dioxide (22 - 30 mmol/L) 29 Anion Gap (5 - 16) 11 BUN (9 - 20 mg/dL) 10 Creatinine (0.7 - 1.2 mg/dL) 0.7 Estimated GFR (>60 ml/min) > 60 BUN/Creatinine Ratio (7 - 25 %) 14.3 Hematology CBC w Diff NO MAN DIFF REQ WBC (4.8 - 10.8 /CUMM) 7.0 RBC (4.70 - 6.10 /CUMM) 3.92 L Hgb (14.0 - 18.0 G/DL) 10.2 L Hct (42 - 52 %) 31.5 L MCV (80.0 - 94.0 FL) 80.2 MCH (27.0 - 31.0 PG) 26.1 L MCHC (33.0 - 37.0 G/DL) 32.6 L RDW (11.5 - 14.5 %) 16.6 H Plt Count (130 - 400 /CUMM) 273 MPV (7.4 - 10.4 FL) 8.7 Gran % (42.2 - 75.2 %) 55.7 Lymphocytes % (20.5 - 51.1 %) 31.4 Monocytes % (1.7 - 9.3 %) 6.9 Eosinophils % (0 - 5 %) 5.5 H Basophils % (0.0 - 2.0 %) 0.5 Absolute Granulocytes (1.4 - 6.5 /CUMM) 3.9 Absolute Lymphocytes (1.2 - 3.4 /CUMM) 2.2 Absolute Monocytes (0.10 - 0.60 /CUMM) 0.5 Absolute Eosinophils (0.0 - 0.7 /CUMM) 0.4 Absolute Basophils (0.0 - 0.2 /CUMM) 0 Last 24 Hours of Sree Results: No new cultures Assessment/Plan ID Impression: Stable, with temperatures and white blood cell count remaining normal, on Vancomycin and Ceftriaxone for osteomyelitis of the left foot secondary to MRSA and Klebsiella, with secondary bacteremia, now 9 days status post repeat debridement of necrotic bone of the left foot and I&D of the left ankle, with placement of a wound VAC. Podiatry has recommended BKA but have discussed with Vascular surgery, and, based on the angiogram results, there are no plans for further surgery at this time. Suggestion: 1. Repeat ESR and follow weekly 2. Repeat Vancomycin trough level with his next dose and follow weekly 3. Continue Vancomycin and Ceftriaxone to plan on a 4 week course of treatment from his most recent debridement (until March 10) 4. Will also need a weekly CBC and BUN/creatinine while on Vancomycin
[2018-02-19 14:13] VITALS: BP 118/62
--- NOTE | 2018-02-19 15:17 | PN- Diabetes ---
Assessment/Plan Diabetes Assessment: Patient is a 52-year-old male with past medical history of uncontrolled diabetes type 2, chronic nonhealing ulcer of left foot, diabetic neuropathy, osteomyelitis status post amputation of left 5th toe. He was admitted for necrotizing fasciitis band gangrene of left foot with positive blood culture of gram positive cocci. He underwent surgery for debrivement and he went to OR again on 02/17/2018. He is on Levemir 10 units daily, Novolog coverage before meals and Novolog coverage at bedtime. His FSGs were 157, 220, 143, 135 and 143. Plan: continue the current insulin regimen for now; monitor FSGs. will follow. Subjective Subjective: He feels okay. Objective Last 24 Hrs of Vital Signs/I&O Vital Signs Date Time Temp Pulse Resp B/P B/P Pulse O2 O2 Flow FiO2 Mean Ox Delivery Rate 02/19 1413 97.8 66 20 118/62 93 02/19 1304 Room Air 02/19 0620 97.7 57 18 102/68 93 Room Air 02/18 2220 98.5 51 18 118/60 95 Room Air Intake & Output 02/19 1600 02/19 0800 02/19 0000 Intake Total 800 200 Output Total 650 1250 1000 Balance -650 -450 -800 Intake, IV 500 Intake, Oral 300 200 Number 3 2 Bowel Movements Output, Urine 650 1250 1000 Findings Pertinent Lab/Sree Results: Laboratory Tests 02/19 0622 Chemistry Sodium (137 - 145 mmol/L) 140 Potassium (3.5 - 5.1 mmol/L) 4.4 Chloride (98 - 107 mmol/L) 100 Carbon Dioxide (22 - 30 mmol/L) 29 Anion Gap (5 - 16) 11 BUN (9 - 20 mg/dL) 10 Creatinine (0.7 - 1.2 mg/dL) 0.7 Estimated GFR (>60 ml/min) > 60 BUN/Creatinine Ratio (7 - 25 %) 14.3 Hematology CBC w Diff NO MAN DIFF REQ WBC (4.8 - 10.8 /CUMM) 7.0 RBC (4.70 - 6.10 /CUMM) 3.92 L Hgb (14.0 - 18.0 G/DL) 10.2 L Hct (42 - 52 %) 31.5 L MCV (80.0 - 94.0 FL) 80.2 MCH (27.0 - 31.0 PG) 26.1 L MCHC (33.0 - 37.0 G/DL) 32.6 L RDW (11.5 - 14.5 %) 16.6 H Plt Count (130 - 400 /CUMM) 273 MPV (7.4 - 10.4 FL) 8.7 Gran % (42.2 - 75.2 %) 55.7 Lymphocytes % (20.5 - 51.1 %) 31.4 Monocytes % (1.7 - 9.3 %) 6.9 Eosinophils % (0 - 5 %) 5.5 H Basophils % (0.0 - 2.0 %) 0.5 Absolute Granulocytes (1.4 - 6.5 /CUMM) 3.9 Absolute Lymphocytes (1.2 - 3.4 /CUMM) 2.2 Absolute Monocytes (0.10 - 0.60 /CUMM) 0.5 Absolute Eosinophils (0.0 - 0.7 /CUMM) 0.4 Absolute Basophils (0.0 - 0.2 /CUMM) 0
[2018-02-19 22:01] VITALS: BP 115/60
[2018-02-20 06:54] VITALS: BP 112/60
--- NOTE | 2018-02-20 06:59 | PN- Housestaff ---
Vonda PATINO,Stef 02/20/18 0657: Subjective Follow-up For: Osteomyelitis Necrotizing fasciitis MRSA bacteremia Diabetes Subjective: Patient was seen and examined at bedside. Per reports from nursing the patient was complaining of severe pain overnight. When asked about this he said that the pain in his left foot is having breaking through with 7/10 pain on the current pain management regimen. His pain right now is a 6/10. He has no other complaints Review of Systems Constitutional: Reports: no symptoms. EENTM: Reports: no symptoms. Cardiovascular: Reports: no symptoms. Respiratory: Reports: no symptoms. Gastrointestinal: Reports: no symptoms. Genitourinary: Reports: no symptoms. Musculoskeletal: Reports: see HPI. Skin: Reports: no symptoms. Objective Last 24 Hrs of Vital Signs/I&O Vital Signs Date Time Temp Pulse Resp B/P B/P Pulse O2 O2 Flow FiO2 Mean Ox Delivery Rate 02/20 0654 97.8 54 20 112/60 92 Room Air 02/19 2201 97.6 64 20 115/60 93 02/19 1413 97.8 66 20 118/62 93 02/19 1304 Room Air Intake & Output 02/20 0800 02/20 0000 02/19 1600 Intake Total 650 480 Output Total 900 650 Balance 650 -420 -650 Intake, IV 550 Intake, Oral 100 480 Output, Urine 900 650 Physical Exam General Appearance: Alert, Oriented X3, Cooperative, No Acute Distress Cardiovascular: Regular Rate, Normal S1, Normal S2 Lungs: Clear to Auscultation, Normal Air Movement Abdomen: Normal Bowel Sounds, Soft, No Tenderness Neurological: Normal Speech, Normal Tone, decreased sensation of the L foot Extremities: L foot, wound vac in place Current Medications: Current Medications Sig/Rafaela Start time Last Medication Dose Route Stop Time Status Admin Acetaminophen 650 MG Q6P PRN 02/08 1545 AC 02/20 PO 0428 Acetaminophen 1,000 MG Q6P PRN 02/08 1545 AC 02/18 IV 1516 Aripiprazole 10 MG DAILY 02/09 1047 AC 02/19 PO 0828 Artificial Tears 2 GTT TID 02/16 2314 AC 02/17 OPH 205 Benztropine Mesylate 1 MG BID 02/09 1047 AC 02/19 PO 2139 Ceftriaxone Sodium 2,000 MG DAILY@1700 02/09 1700 AC 02/19 IV 1705 Citalopram 30 MG DAILY 02/09 1047 AC 02/19 Hydrobromide PO 0827 Docusate Sodium 100 MG DAILY 02/11 1720 AC 02/19 PO 0827 Gabapentin 800 MG TID PRN 02/09 1030 AC 02/11 PO 0800 Gemfibrozil 600 MG BID 02/09 1047 AC 02/19 PO 2139 Insulin Aspart 0 TIDAC/HS 02/17 1200 AC 02/19 SC 1705 Insulin Detemir 10 UNITS DAILY 02/19 1000 AC 02/19 SC 0826 Mirtazapine 15 MG AT BEDTIME PRN 02/09 2200 AC 02/19 PO 2139 Ondansetron HCl 4 MG Q6P PRN 02/08 2245 AC IV Oxycodone HCl 10 MG Q12 02/18 1000 AC 02/19 PO 2139 Oxycodone/ 2 TAB Q6P PRN 02/18 0800 AC 02/20 Acetaminophen PO 0100 Oxycodone/ 1 TAB Q6P PRN 02/18 0800 AC Acetaminophen PO Rosuvastatin Calcium 20 MG 1700 02/09 1700 AC 02/19 PO 1704 Senna 187 MG AT BEDTIME 02/11 2200 AC 02/18 PO 2110 Vancomycin HCl 2,000 MG Q12H 02/12 1330 AC 02/20 Dextrose/Water 500 ML IV 0100 Last 24 Hrs of Lab/Sree Results Last 24 Hrs of Labs/Mics: Laboratory Tests 02/20/18 0012: ESR Westergren 54 H, Vancomycin Trough 24.2 H Assessment/Plan Assessment: Patient is a 52-year-old male with past medical history of poorly controlled diabetes, chronic nonhealing ulcer on the plantar aspect of the left foot, diabetic neuropathy, osteomyelitis and MRSA. He presented with complaints of breakdown of his chronic nonhealing ulcer, with serous drainage, worsening erythema, increased warmth and severe pain of the left foot restarted a few days ago. He has had a history of recurrent osteomyelitis and cellulitis of his chronic left foot wound but for some time now the wound had begun to heal and he wore a boot to protect his foot and he follows regularly with Dr. Reese. However, a few days prior to admission Dr. Reese removed the boot to give him some rest off it but this lead to a very rapid breakdown and infection of the ulcer. He had fevers at home Tmax 103 in the ED the morning of admission. #Necrotizing fasciitis of Left foot s/p debridement, with osteomyelitis and MRSA bacteremia Repeat blood cultures are negative. Wound VAC in place. - Vancomycin trough elevated prior to evening dose last night, will decrease dose to 1500 mg twice a day and skip this morning's dose starting him on a regimen of 10 PM and 10 AM starting this evening. -Recheck vancomycin trough before fifth dose on 02/22/18 in the evening - ID recommendations appreciated -Continue ceftriaxone - Patient is now stable for discharge and awaiting placement, no plan for BKA on this admission, will follow up with vascular surgery as an outpatient. -Weekly VAC jaundice and BUN/creatinine while on vancomycin; last dose on 03/10/18 to complete a four-week course -For pain control we will increase OxyContin to 15 mg twice a day, and increase interval of Percocet dosing to every 4 when necessary #Poorly controlled diabetes Hgb A1c 8.9. Blood sugars have been well controlled on this admission -Continue current NovoLog sliding scale -continue levemir to 10 mg daily -Endocrine input appreciated -When ready for discharge patient will be discharged on his home medications of metformin and Dapagliflozin #Severe diabetic neuropathy -Continue gabapentin 800mg TID #Chronic medical conditions-HTN, HLD, Depression -continue home medications Lovenox for DVT prophylaxis diabetic diet FC Problem List: 1. MRSA bacteremia 2. Necrotizing fasciitis 3. Osteomyelitis Pain Ratin Pain Location: L foot Pain Goal: Pain 4 or less Pain Plan: increase oxycontin to 15 mg and increase interval of percocet dosing Tomorrow's Labs & Rationales: none Valarie Chi MD 02/20/18 1309: Attending MD Review Statement Attending Statement Attending MD Statement: examined this patient, discuss w/resident/PA/[employer], agreed w/resident/PA/[employer], reviewed EMR data (avail) Attending Assessment/Plan: 52M PMH Type 2 insulin dependent diabetes, peripheral neuropathy, s/p multiple surgeries on the left foot including left fifth toe amputation, resection of the left fourth metatarsal bone and distal cuboid of the left foot, with a nonhealing left foot wound since his last surgery 15 months prior presenting with worsening of the left foot with erythema and drainage with necrotizing fasciitis and gas gangrene, now s/p incision and drainage x2, most recently on , with OR cultures growing mRSA and Klebsiella, PICC placed 02/13. Angiogram 02/17 shows patent LE vessels. Doing well today. Pain better controlled. 1. mRSA and Klebsiella acute osteomyelitis of the left foot 2. Necrotizing fasciitis and gas gangrene of the left foot 3. Sepsis due to above (resolved) 4. Uncontrolled Type 2 IDDM 5. Diabetic peripheral polyneuropathy Plan -Stable for discharge home - Continue Vancomycin and Ceftriaxone - Outpatient podiatry, vascular recommendations - Continue home medications
--- NOTE | 2018-02-20 08:45 | Patient Discharge Instructions ---
Discharge Instructions General Discharge Information You were seen/treated for: Necrotizing fasciitis Osteomyelitis Diabetes You had these procedures: Debridement and incision and drainage of left foot wound. Angiogram of the left leg. Special Instructions: Follow-up with Dr. Hernandez, Vascular Surgery, within 1 week of discharge. We have provided you with a referral. Follow-up with Dr. Reese within 1 week of discharge. Follow-up with your primary care physician within 1 week of discharge. Vancomycin and Ceftriaxone for a total of 4 week course. Last dose on 03/10/18. first dose of Vancomycin to be dosed on 02/20/18 in the evening, continue BID. Weekly vancomycin troughs starting on 02/22/18 1/2 hour before his evening dose. Weekly CBC and BUN/Cr while on Vancomycin Diet Recommended Diet: Diabetic Acute Coronary Syndrome Inclusion Criteria At DC or during hospital stay patient has or had the following: ACS DIAGNOSIS No Discharge Core Measures Meds if any: Prescribed or Continued at Discharge Meds if any: NOT Prescribed or Continued at Discharge Congestive Heart Failure Inclusion Criteria At DC or during hospital stay patient has or had the following: CHF DIAGNOSIS No Discharge Core Measures Meds if any: Prescribed or Continued at Discharge Meds if any: NOT Prescribed or Continued at Discharge Cerebrovascular accident Inclusion Criteria At DC or during hospital stay patient has or had the following: CVA/TIA Diagnosis No Discharge Core Measures Meds if any: Prescribed or Continued at Discharge Meds if any: NOT Prescribed or Continued at Discharge Venous thromboembolism Inclusion Criteria VTE Diagnosis No VTE Type NONE VTE Confirmed by (Test) NONE Discharge Core Measures - Per Current guidelines, there needs to be overlap - treatment for the first 5 days of Warfarin therapy. - If discharged on Warfarin prior to 5 days of - overlap therapy, the patient will need to be - assessed for post discharge needs including - *Post discharge parental anticoagulation - *Warfarin and/or parental anticoagulation education - *Follow up date to check INR post discharge At least 5 days overlap therapy as Inpatient No Meds if any: Prescribed or Continued at Discharge Note: Overlap Therapy is Warfarin and Anticoagulant Meds if any: NOT Prescribed or Continued at Discharge
[2018-02-20] MEDS ORDERED: SENNA-TIME S T1 EACH PO (10:44)
[2018-02-20] MEDS ORDERED: VANCOMYCIN1 GM/2001 IV (10:44)
[2018-02-20] MEDS ORDERED: PERCOCET 5-3251 EACH PO (10:44)
[2018-02-20] MEDS ORDERED: OXYCONTIN15 M1 PO (10:44)
[2018-02-20] MEDS ORDERED: DOCUSATE SODIU100 M3 PO (10:44)
--- NOTE | 2018-02-20 12:40 | PN- Diabetes ---
Assessment/Plan Diabetes Assessment: Patient is a 52-year-old male with past medical history of uncontrolled diabetes type 2, chronic nonhealing ulcer of left foot, diabetic neuropathy, osteomyelitis status post amputation of left 5th toe. He was admitted for necrotizing fasciitis band gangrene of left foot with positive blood culture of gram positive cocci. He underwent surgery for debrivement and he went to OR again on 02/17/2018. He is on Levemir 10 units daily, Novolog coverage before meals and Novolog coverage at bedtime. His FSGs were 148, 115 and 143. Most liely he will be discharged home today. Plan: Discharge plan for DM: metformin 500 mg am with breakfast and 1000 mg with dinner; Farxiga 5 mg daily; monitor FSGs. f/u in office after discharge. Subjective Subjective: He feels well. Objective Last 24 Hrs of Vital Signs/I&O Vital Signs Date Time Temp Pulse Resp B/P B/P Pulse O2 O2 Flow FiO2 Mean Ox Delivery Rate 02/20 0654 97.8 54 20 112/60 92 Room Air 02/19 2201 97.6 64 20 115/60 93 02/19 1413 97.8 66 20 118/62 93 02/19 1304 Room Air Intake & Output 02/20 1600 02/20 0800 02/20 0000 Intake Total 650 480 Output Total 900 Balance 650 -420 Intake, IV 550 Intake, Oral 100 480 Output, Urine 900 Findings Pertinent Lab/Sree Results: Laboratory Tests 02/20 0012 Hematology ESR Westergren (0 - 10 MM) 54 H Toxicology Vancomycin Trough (10.0 - 20.0 ug/mL) 24.2 H
--- NOTE | 2018-02-20 13:15 | PN- Infect Dx ---
Subjective Subjective: Afebrile. He continues to note mild discomfort in the left foot. Objective Last 24 Hrs of Vital Signs/I&O Vital Signs Date Time Temp Pulse Resp B/P B/P Pulse O2 O2 Flow FiO2 Mean Ox Delivery Rate 02/20 0654 97.8 54 20 112/60 92 Room Air 02/19 2201 97.6 64 20 115/60 93 02/19 1413 97.8 66 20 118/62 93 Intake & Output 02/20 1600 02/20 0800 02/20 0000 Intake Total 650 480 Output Total 900 Balance 650 -420 Intake, IV 550 Intake, Oral 100 480 Output, Urine 900 Physical Exam Other Physical Findings: He appears comfortable in no acute distress Extremities left foot dressing intact, with wound VAC in place; PICC in the left upper extremity with no inflammation at the site Results Last 24 Hours of Lab Results: Laboratory Tests 02/20 0012 Hematology ESR Westergren (0 - 10 MM) 54 H Toxicology Vancomycin Trough (10.0 - 20.0 ug/mL) 24.2 H Last 24 Hours of Sree Results: No new cultures Assessment/Plan ID Impression: Stable, with temperatures and white blood cell count remaining normal, on Vancomycin and Ceftriaxone for osteomyelitis of the left foot secondary to MRSA and Klebsiella, with secondary bacteremia, now 10 days status post repeat debridement of necrotic bone of the left foot and I&D of the left ankle, with placement of a wound VAC. Podiatry has recommended a BKA and this will need to be discussed further as an outpatient. Of note his repeat ESR was decreased yesterday. His Vancomycin trough level is elevated and his dose will need to be adjusted. Suggestion: 1. Decrease Vancomycin to 1.5 g IV every 12 hours and recheck a Vancomycin trough level with the 4th or 5th dose 2. Would obtain a CBC, ESR, BUN/creatinine and Vancomycin trough level weekly 3. Continue Vancomycin and Ceftriaxone to complete a 4 week course of treatment (until March 10)
[2018-02-20 14:23] VITALS: BP 112/60
== END 2018-02-20 16:03 | DRG 710 ==
LOC: ERH 07:51 → 2NA 12:10 → ERHI 12:10 → ENRESERV 14:17 → ENTRNSPT 14:47 → EDTRNSPTSTS 14:59 → 2NA 15:10 → CMPTRNSPT 15:24 → ENTRNSPT 18:46 → EDTRNSPTSTS 19:05 → CMPTRNSPT 19:23 → 2NA 02-09 11:17 → ENTRNSPT 02-10 18:26 → EDTRNSPTSTS 02-10 18:50 → EDTRNSPT 02-10 18:50 → CMPTRNSPT 02-10 19:10 → ENTRNSPT 02-17 10:00 → EDTRNSPT 02-17 10:16 → EDTRNSPTSTS 02-17 10:16 → CMPTRNSPT 02-17 10:41 → ENPENDDIS 02-20 14:31 → 2NA 02-20 16:03
PROVIDERS: Dermatology; Emergency Medicine; Student in an Organized Health Care Education/Training Program
PROC: B40GYZZ Plain Radiography of Left Lower Extremity Arteries using Other Contrast (ICD-10-PCS; 2018-02-09)
PROC: 0QBM0ZZ Excision of Left Tarsal, Open Approach (ICD-10-PCS; principal; 2018-02-10)
PROC: 0QBM0ZZ Excision of Left Tarsal, Open Approach (ICD-10-PCS; 2018-02-17)
DX: A41.02 Sepsis due to Methicillin resistant Staphylococcus aureus (principal); E11.69 Type 2 diabetes mellitus with other specified complication; E11.621 Type 2 diabetes mellitus with foot ulcer; L97.529 Non-pressure chronic ulcer of other part of left foot with unspecified severity; E11.40 Type 2 diabetes mellitus with diabetic neuropathy, unspecified; M72.6 Necrotizing fasciitis; E11.65 Type 2 diabetes mellitus with hyperglycemia; M86.172 Other acute osteomyelitis, left ankle and foot; B95.7 Other staphylococcus as the cause of diseases classified elsewhere; B96.1 Klebsiella pneumoniae [K. pneumoniae] as the cause of diseases classified elsewhere; M86.9 Osteomyelitis, unspecified; E78.5 Hyperlipidemia, unspecified; D50.9 Iron deficiency anemia, unspecified; F32.9 Major depressive disorder, single episode, unspecified
CPT/HCPCS: 2NAP; 87070; 87075; 87184; 36415; 36592; 71045; 71046; 73630-LT; 81001; 82436; 87040; 87147; 87804; 87804-59; 88307; 93005; 93010; 93306; 93925; 96361; 96365; 97110-GO; 97116-GO; 97161-GP; 97530-GO; 99291; C1725; C1760; C1769; J0131; J0401; J0696; J1644; J1815; J2001; J2405; J2550; J3370; J7042; J7060; Q9967

== ENCOUNTER 2018-03-25 02:59 | Inpatient (IN) | payer OTHER ==
[~2018-03-25] VITALS: Ht 172.7 cm; Wt 97.3 kg
[~2018-03-25 02:59] MED LIST changes: +ABILIFY10 M1 PO; +BENZTROPINE MESY1 M1 PO; +CEFTRIAXONE2 G2 IV; +CITALOPRAM HBR20 MG PO; +CRESTOR20 M2 PO; +DOCUSATE SODIU100 M3 PO; +FARXIGA5 M1 PO; +GABAPENTIN400 M2 PO; +GEMFIBROZIL600 M1 PO; +GLUCOPHAGE XR500 M1 PO; +LISINOPRIL5 M1 PO; +METFORMIN HCL500 M4 PO; +MIRTAZAPINE15 M2 PO; +OXYCONTIN15 M1 PO; +SENNA-TIME S T1 EACH PO; +VANCOMYCIN1 GM/2001 IV
[2018-03-25 15:42] LABS: ABSOLUTE BASOPHIL COUNT 0.1 /CUMM (0.0-0.2); ABSOLUTE EOSINOPHIL COUNT 0.2 /CUMM (0.0-0.7); ABSOLUTE GRANULOCYTE CT 13.7 /CUMM (1.4-6.5); ABSOLUTE LYMPH COUNT 1.8 /CUMM (1.2-3.4); ABSOLUTE MONOCYTE COUNT 0.9 /CUMM (0.10-0.60); BASOPHIL % 0.3 % (0.0-2.0); HEMATOCRIT 32.4 % (42-52); MEAN CORPUSCULAR HGB 26.5 PG (27.0-31.0); MEAN CORPUSCULAR HGB CONC 33.3 G/DL (33.0-37.0); MEAN CORPUSCULAR VOLUME 79.6 FL (80.0-94.0); MEAN PLATELET VOLUME 8.3 FL (7.4-10.4); PLATELET COUNT 485 /CUMM (130-400); RBC DISTRIBUTION WIDTH 16.7 % (11.5-14.5); RED BLOOD CELL CT 4.07 /CUMM (4.70-6.10); WHITE BLOOD CELL COUNT 16.5 /CUMM (4.8-10.8)
[2018-03-25 15:47] LABS: GRANULOCYTE % 82.6 % (42.2-75.2)
--- NOTE | 2018-03-25 16:24 | Admission Core Measures ---
Acute Coronary Syndrome (CM) ACS Core Measures Acute Coronary Syndrome Diagnosis No Congestive Heart Failure (NEW) CHF Core Measures Congestive Heart Failure Diagnosis No Cerebrovascular Accident (NEW) CVA Core Measures CVA/TIA Diagnosis No Venous Thromboembolism VTE Core Opal (View Protocol) VTE Risk Factors Surgery No Mechanical VTE Prophylaxis d/t N/A MechProphylax Ordered No VTE Pharm Prophylaxis d/t NA PharmProphylax ordered Problem List As ranked by this Provider includes Assessment & Plan 1. S/P BKA (below knee amputation) HOME MEDS Home Med List Aripiprazole (Abilify) 10 MG TABLET 1 TAB PO DAILY MENTAL HEALTH (Reported) Benztropine Mesylate 1 MG TABLET 1 TAB PO BID MENTAL HEALTH (Reported) Citalopram Hydrobromide (Citalopram HBr) 20 MG TABLET 1.5 TAB PO DAILY MENTAL HEALTH (Reported) Dapagliflozin Propanediol (Farxiga) 5 MG TABLET 1 TAB PO DAILY DM (Reported) Gabapentin 400 MG CAPSULE 2 CAP PO TID PRN NERVE PAIN (Reported) Gemfibrozil 600 MG TABLET 1 TAB PO BID CHOLESTEROL (Reported) Metformin HCl (Metformin HCl ER) 500 MG TAB.ER.24H 2 TAB PO QAM DM (Reported) Metformin HCl (Glucophage XR) 500 MG TAB.ER.24H 1 TAB PO QPM DM (Reported) Mirtazapine 15 MG TABLET 1 TAB PO QHS PRN MENTAL HEALTH (Reported) Oxycodone HCl (Oxycontin) 15 MG TAB.ER.12H 15 MG PO Q12 Pain Oxycodone HCl/Acetaminophen (Percocet 5-325 MG Tablet) 5 MG-325 MG TABLET 2 TAB PO Q4-PRN PRN PAIN SCALE 7-10 (SEVERE) Oxycodone HCl/Acetaminophen (Percocet 5-325 MG Tablet) 5 MG-325 MG TABLET 1 TAB PO Q4-PRN PRN PAIN SCALE 4-6 (MODERATE) Rosuvastatin Calcium (Crestor) 20 MG TABLET 1 TAB PO DAILY CHOLESTEROL ( Reported)
--- NOTE | 2018-03-25 16:37 | Operative Report ---
Operative/Inv Procedure Report Surgery Date: 03/25/18 Name of Procedure: Left transtibial amputation Pre-Operative Diagnosis: Chronic nonhealing left foot and lower leg osteomyelitis and wound Post-Operative Diagnosis: Same Estimated Blood Loss: 1000ML Surgeon/Dental Laboratory Technology Teacher: Trent Hernandez MD Anesthesia: general endotracheal tube Operative/Procedure Note Note: Patient is a 53-year-old gentleman with poorly controlled diabetes and long- standing chronic left foot and lower leg nonhealing wound and osteomyelitis. He has been followed by Dr. Reese and has undergone multiple debridement and wound care as well as long-term antibiotics. Ultimately, I was asked to perform a major amputation as other treatment has not worked. The nature of the procedure including its possible complications which include but not limited to bleeding, infection, blood clots, pain, need for re-intervention were discussed. An informed consent was obtained. Patient was taken to the operating room and placed supine on the table. A timeout was called according to protocol. IV antibiotic had been started. After satisfactory induction of anesthesia, a Long catheter was placed. The patient was then prepped and draped in standard surgical fashion. Using marking pen, a posterior flap configuration was marked over the skin on the left leg. Knife was used to make the incision and the incision was carried down through the subcutaneous tissue and fascia using electrocautery. Major arteries and veins were ligated and divided. The tibia was transected with an electric saw. The fibula was then transected approximately 1 cm shorter than the tibia. The tip of the tibia was then rounded off with a file. The leg was then sent off the field as specimen. The stump was irrigated with sterile saline. Hemostasis was obtained by placing silk sutures and electrocautery. Once I was happy with hemostasis, a muscular flap was used to cover the bone with 2-0 Vicryl suture. The fascia was then approximated with 2-0 Vicryl suture in an interrupted fashion. Subdermal suture using 3-0 Vicryl suture was then used. The skin was then closed with efraín. The count at the end of the case was correct. Sterile dressing was applied. Then the left leg was placed in a knee immobilizer. The patient tolerated the procedure well and was taken to the recovery room in stable condition.
[2018-03-25 17:20] VITALS: BP 106/80
--- NOTE | 2018-03-25 18:15 | PN- Vascular Surgery ---
Subjective Subjective: POST-OP NOTE Transfused 1u prbc in the OR for 1 liter blood loss. Currently sleepy, with some discomfort involving the bka. Denies nausea. No dizziness. No shortness of breath. No chest pains. Objective Vital Signs and I&Os Vital Signs Date Time Temp Pulse Resp B/P B/P Pulse O2 O2 Flow FiO2 Mean Ox Delivery Rate 03/25 1801 Nasal 2.0L Cannula 03/25 1720 97.7 88 18 106/80 98 Nasal 2.0L Cannula 03/25 1710 Nasal 2.0L Cannula Physical Exam: General - alert. sleepy. no acute distress. Lungs - clear bilaterally. no w/r/r. Cardiac - s1s2. reg. Abdomen - soft. nontender. - persaud draining clear, yellow urine. Extremities - warm bilaterally. lle in knee immobilizer. dressing c/d/i. no drains. Current Medications: Current Medications Sig/Rafaela Start time Last Medication Dose Route Stop Time Status Admin Acetaminophen 1,000 MG Q6 03/25 1800 AC 03/25 IV 03/26 1759 1736 Aripiprazole 10 MG DAILY 03/26 0900 AC PO Atorvastatin Calcium 80 MG 1700 03/26 1700 AC PO Benztropine Mesylate 1 MG BID 03/25 2100 AC PO Cefazolin Sodium 2,000 MG IQ8 03/25 2000 CAN IV 03/26 0801 Cefazolin Sodium 2 GM Q8H 03/25 2000 AC N/A 1 UNIT IV 03/26 0429 Citalopram 30 MG DAILY 03/26 0900 AC Hydrobromide PO Dextrose/Sodium 1,000 ML Q10H 03/25 1730 AC 03/25 Chloride IV 1737 Docusate Sodium 100 MG BID 03/25 2100 AC PO Gabapentin 800 MG Q8 03/25 2200 AC PO Gemfibrozil 600 MG BID 03/25 2100 AC PO Heparin Sodium 5,000 UNIT Q8 03/26 0600 AC (Porcine) SC Insulin Aspart 0 TIDAC 03/25 1700 AC 03/25 SC 1736 Metformin HCl 1,000 MG 0800 03/26 0800 AC PO Metformin HCl 500 MG 1700 03/25 1700 AC PO Mirtazapine 15 MG AT BEDTIME PRN 03/25 1630 AC PO Morphine Sulfate 4 MG Q2-3 HRS NEEDED.. 04/24 1730 AC IV Ondansetron HCl 4 MG Q6P PRN 03/25 1730 AC IV Oxycodone HCl 15 MG Q12 03/25 2100 AC PO Oxycodone HCl 5 MG Q4-6 PRN PRN 03/25 1730 AC PO Oxycodone HCl 10 MG Q4-6 PRN PRN 03/25 173 AC PO Results Last 48 Hours of Labs: Laboratory Tests 03/25 1530 Hematology CBC w Diff NO MAN DIFF REQ WBC (4.8 - 10.8 /CUMM) 16.5 H RBC (4.70 - 6.10 /CUMM) 4.07 L Hgb (14.0 - 18.0 G/DL) 10.8 L Hct (42 - 52 %) 32.4 L MCV (80.0 - 94.0 FL) 79.6 L MCH (27.0 - 31.0 PG) 26.5 L MCHC (33.0 - 37.0 G/DL) 33.3 RDW (11.5 - 14.5 %) 16.7 H Plt Count (130 - 400 /CUMM) 485 H MPV (7.4 - 10.4 FL) 8.3 Gran % (42.2 - 75.2 %) 82.6 H Lymphocytes % (20.5 - 51.1 %) 10.7 L Monocytes % (1.7 - 9.3 %) 5.4 Eosinophils % (0 - 5 %) 1.0 Basophils % (0.0 - 2.0 %) 0.3 Absolute Granulocytes (1.4 - 6.5 /CUMM) 13.7 H Absolute Lymphocytes (1.2 - 3.4 /CUMM) 1.8 Absolute Monocytes (0.10 - 0.60 /CUMM) 0.9 H Absolute Eosinophils (0.0 - 0.7 /CUMM) 0.2 Absolute Basophils (0.0 - 0.2 /CUMM) 0.1 Assessment/Plan Assessment/Plan This 53 year old male with hx dm, neuropathy, substance abuse, htn, hld, POD#0 s /p left transtibial amputation for chronic nonhealing left foot and lower leg osteomyelitis and wound, s/p transfusion 1u prbc intra-op for 1 liter blood loss anemia and associate hypotension advance diet as tolerated pain control as ordered sukhdeep-operative ancef x 2 doses d/c persaud in am f/u am labs knee immobilizer in place. dressing change on POD#3 hep sc - dvt ppx accuchecks / ss coverage home meds re-ordered will call [employer] tomorrow to assess for future prosthetic fitting will d/w Core Measures Venous Thromboembolism VTE Risk Factors Surgery No Mechanical VTE Prophylaxis d/t N/A MechProphylax Ordered No VTE Pharm Prophylaxis d/t NA PharmProphylax ordered
[2018-03-25 19:15] VITALS: BP 122/80
[2018-03-25 21:15] VITALS: BP 110/70
[2018-03-25 23:04] VITALS: BP 112/72
[2018-03-26 02:04] VITALS: BP 122/78
[2018-03-26 06:00] VITALS: BP 118/86
--- NOTE | 2018-03-26 08:13 | PN- Vascular Surgery ---
Subjective Subjective: 53 y/o male POD#1 left BKA -pain and spasms overnight, tolarating POs wants to keep persaud in this morning for comfort and take out in the afternoon. Review of Systems Constitutional: Denies: chills, fever, malaise. Cardiovascular: Denies: chest pain. Respiratory: Denies: cough, short of breath. Objective Vital Signs and I&Os Vital Signs Date Time Temp Pulse Resp B/P B/P Pulse O2 O2 Flow FiO2 Mean Ox Delivery Rate 03/26 0600 98.8 87 20 118/86 95 Room Air 03/26 0204 98.8 90 18 122/78 95 Room Air 03/26 0000 100 Nasal 1.0L Cannula 03/25 2304 98.3 90 20 112/72 100 Nasal 2.5L Cannula 03/25 2115 97.9 93 20 110/70 99 Nasal 2.5L Cannula 03/25 1915 97.8 90 20 122/80 97 Nasal 2.5L Cannula 03/25 1801 Nasal 2.0L Cannula 03/25 1720 97.7 88 18 106/80 98 Nasal 2.0L Cannula 03/25 1710 Nasal 2.0L Cannula Intake & Output 03/26 1600 03/26 0800 03/26 0000 03/25 1600 03/25 0800 03/25 0000 Intake Total 1140 850 Output Total 500 550 Balance 640 300 Intake, IV 900 600 Intake, Oral 240 250 Number 0 Bowel Movements Output, Urine 500 550 Patient 214 lb 221 lb Weight Weight Bed scale Reported by Patient Measurement Method Physical Exam: alert and oriented complaing of pain this am and spasm left BKA- in immobilizer -dressings CDI right leg - good pulses no calf edema heart- RRR without MRG abdomen -soft nontender chest -CTA Assessment/Plan Assessment/Plan A/P POD#1 LBKA persaud out this afternoon and saline lock IV fluids will add valium for spasms -he has not been asking for his prns for pain. Nurse is aware to give meds OOB to chair -Hangar prothetics will be called and PT consult for ambulation needs Core Measures Venous Thromboembolism VTE Risk Factors Surgery No Mechanical VTE Prophylaxis d/t N/A MechProphylax Ordered No VTE Pharm Prophylaxis d/t NA PharmProphylax ordered
[2018-03-26 08:52] LABS: ABSOLUTE BASOPHIL COUNT 0.1 /CUMM (0.0-0.2); ABSOLUTE EOSINOPHIL COUNT 0.1 /CUMM (0.0-0.7); ABSOLUTE GRANULOCYTE CT 7.3 /CUMM (1.4-6.5); ABSOLUTE MONOCYTE COUNT 0.7 /CUMM (0.10-0.60); BASOPHIL % 0.6 % (0.0-2.0); EOSINOPHIL % 0.7 % (0-5); GRANULOCYTE % 71.7 % (42.2-75.2); MEAN CORPUSCULAR HGB CONC 33.7 G/DL (33.0-37.0); MEAN PLATELET VOLUME 8.7 FL (7.4-10.4); PLATELET COUNT 353 /CUMM (130-400); RBC DISTRIBUTION WIDTH 16.1 % (11.5-14.5); RED BLOOD CELL CT 3.17 /CUMM (4.70-6.10); WHITE BLOOD CELL COUNT 10.1 /CUMM (4.8-10.8)
[2018-03-26 09:31] LABS: HEMATOCRIT 25.3 % (42-52)
--- NOTE | 2018-03-26 10:49 | Surgical Discharge Summary ---
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 Medical History Blood Transfusion Hx: Yes Neurological: peripheral neuropathy EENT: allergies Cardiovascular: hypertension, hyperlipidemia Respiratory: NONE Gastrointestinal: NONE Hepatic: NONE Renal: NONE Musculoskeletal: NONE Psychiatric: anxiety, depression, substance abuse, Suicidal ideation Endocrine: diabetes Blood Disorders: anemia Cancer(s): NONE SHEET METAL CONTRACTOR/Reproductive: NONE History of MRSA: Yes History of VRE: No History of CDIFF: No Isolation History: Contact Surgical History Pertinent Surgical History: status post amputation of the left fifth toe and resection of the left fourth metatarsal status post Tailor's bunionectomy right foot R FOOT DEBRIDEMENT Family History Relations & Conditions If Any: FATHER (Stomach cancer, CAD s/p CABG at age 70). MOTHER (TIA, CAD s/p CABG age 70). Psychosocial History Where Do You Live? Home Who Do You Live With? Mother Services at Home: None What is Your Primary Language? Algerian Review of Systems: see h&p Hospital Course [facility]: [place] PATINO,F F [facility] Hospital Course: Electively scheduled left transtibial amputation on 03/25/18 by for pre-op diagnosis of chronic nonhealing left foot and lower leg osteomyelitis and wound. Transfused 1u prbc for a 1 liter intra-operative blood loss. Jaye- operative antibiotics administed. Heparin sc ordered post-op for dvt prophylaxis , started post-op day#1. Dressing changed routinely on post-op day#3, and continued daily thereafter. Knee immobilizer used post-operatively, and Clinical Research Associate was called to assess him for future prosthetic preparation / fitting. Pain medication transitioned from iv to oral medication. Although he has had a jaye- operative acute blood loss anemia following his surgery, serial labs have been stable and he has been asymptomatic. His primary dressing was changed on post-op day#3, and continued daily thereafter. 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 Additional Diagnosis: same as above, s/p Surgery Date: 03/25/18 Name of Procedure: Left transtibial amputation acute jaye-operative blood loss anemia s/p transfusion 1u prbc during surgery () Discharge Disposition: SNF Discharge Instructions General Discharge Information Code Status: Full Code Patient's Diet: diabetic diet, cc3 as tolerated Patient's Activity: out of bed with rolling walker and assistance bundles hanger device in place Follow-Up Instructions/Appts: follow up with in 1-2 weeks will need efraín removed around post-op day#14 Medications at Discharge Discharge Medications: Stop taking the following medications: Oxycodone HCl/Acetaminophen (Percocet 5-325 MG Tablet) 5 MG-325 MG TABLET ORAL EVERY 4 HOURS NEEDED as needed for PAIN SCALE 7-10 (SEVERE) Qty = 10 Oxycodone HCl/Acetaminophen (Percocet 5-325 MG Tablet) 5 MG-325 MG TABLET ORAL EVERY 4 HOURS NEEDED as needed for PAIN SCALE 4-6 (MODERATE) Qty = 10 Continue taking these medications: Gemfibrozil (Gemfibrozil) 600 MG TABLET 1 Tablet ORAL TWICE DAILY Qty = 90 Comments: Last Taken: 02/20/18 Time: 8:30 am Dapagliflozin Propanediol (Farxiga) 5 MG TABLET 1 Tablet ORAL DAILY Qty = 30 Comments: NOT TAKEN IN HOSPITAL Metformin HCl (Metformin HCl ER) 500 MG TAB.ER.24H 2 Tablet ORAL Every Morning Qty = 90 Comments: NOT TAKEN IN HOSPITAL Metformin HCl (Glucophage XR) 500 MG TAB.ER.24H 1 Tablet ORAL Every night Instructions: with food Comments: NOT TAKEN IN HOSPITAL Rosuvastatin Calcium (Crestor) 20 MG TABLET 1 Tablet ORAL DAILY Qty = 30 Comments: Last Taken: 02/20/18 Time: 5:00 pm Gabapentin (Gabapentin) 400 MG CAPSULE 2 Capsule ORAL THREE TIMES DAILY as needed for NERVE PAIN Qty = 180 Comments: NOT TAKEN IN HOSPITAL Citalopram Hydrobromide (Citalopram HBr) 20 MG TABLET 1.5 Tablet ORAL DAILY Qty = 45 Comments: Last Taken: 02/20/18 Time: 8:30 am Mirtazapine (Mirtazapine) 15 MG TABLET 1 Tablet ORAL TAKE AT BEDTIME as needed for MENTAL HEALTH Qty = 30 Comments: Last Taken: 02/19/18 Time: 9:30 pm Aripiprazole (Abilify) 10 MG TABLET 1 Tablet ORAL DAILY Qty = 30 Comments: Last Taken: 02/20/18 Time: 8:30 am Benztropine Mesylate (Benztropine Mesylate) 1 MG TABLET 1 Tablet ORAL TWICE DAILY Qty = 60 Comments: Last Taken: 02/20/18 Time: 8:30 am Oxycodone HCl (Oxycontin) 15 MG TAB.ER.12H 15 Milligram ORAL EVERY 12 HOURS Qty = 10 Comments: Last Taken: 02/20 Time: 10:00 am Start taking the following new medications: Docusate Sodium (Docusate Sodium) 100 MG CAPSULE 100 Milligram ORAL TWICE DAILY as needed for CONSTIPATION Qty = 60 No Refills Instructions: hold for diarrhea / loose stool Oxycodone HCl (Oxycodone HCl) 5 MG TABLET 1-2 Tablet ORAL EVERY 4-6 HOURS NEEDED as needed for pain control Qty = 36 No Refills Instructions: tylenol may be used in combination with oxycodone Copies To: Stef Guthrie MD
[2018-03-26 10:52] VITALS: BP 110/60
--- NOTE | 2018-03-26 10:54 | Patient Discharge Instructions ---
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 You had these procedures: Surgery Date: 03/25/18 Name of Procedure: Left transtibial amputation Watch for these problems: fever>101.3, increased pain, redness/swelling/drainage, dizziness, shortness of breath, chest pains Call Surgeon to remove: [place] Other wound care: daily dry guaze dressing change Special Instructions: schedule hanger device in place for future prosthetic device Diet Continue normal diet: Yes Recommended Diet: Diabetic Activity Full Activity/No Limits: No Activity Self Limited: Yes Other activity limits: out of bed with rolling walker assistance Acute Coronary Syndrome Inclusion Criteria At DC or during hospital stay patient has or had the following: ACS DIAGNOSIS No Discharge Core Measures Meds if any: Prescribed or Continued at Discharge Meds if any: NOT Prescribed or Continued at Discharge Congestive Heart Failure Inclusion Criteria At DC or during hospital stay patient has or had the following: CHF DIAGNOSIS No Discharge Core Measures Meds if any: Prescribed or Continued at Discharge Meds if any: NOT Prescribed or Continued at Discharge Cerebrovascular accident Inclusion Criteria At DC or during hospital stay patient has or had the following: CVA/TIA Diagnosis No Discharge Core Measures Meds if any: Prescribed or Continued at Discharge Meds if any: NOT Prescribed or Continued at Discharge Venous thromboembolism Inclusion Criteria VTE Diagnosis No VTE Type NONE VTE Confirmed by (Test) NONE Discharge Core Measures - Per Current guidelines, there needs to be overlap - treatment for the first 5 days of Warfarin therapy. - If discharged on Warfarin prior to 5 days of - overlap therapy, the patient will need to be - assessed for post discharge needs including - *Post discharge parental anticoagulation - *Warfarin and/or parental anticoagulation education - *Follow up date to check INR post discharge At least 5 days overlap therapy as Inpatient No Meds if any: Prescribed or Continued at Discharge Note: Overlap Therapy is Warfarin and Anticoagulant Meds if any: NOT Prescribed or Continued at Discharge
[2018-03-26] MEDS ORDERED: DOCUSATE SODIU100 M3 PO (10:58)
[2018-03-26] MEDS ORDERED: OXYCODONE HCL5 M1 PO (10:58)
[2018-03-26 15:01] VITALS: BP 106/60
[2018-03-26 22:08] VITALS: BP 120/54
[2018-03-27 06:42] VITALS: BP 114/60
[2018-03-27 08:24] LABS: ABSOLUTE BASOPHIL COUNT 0 /CUMM (0.0-0.2); ABSOLUTE EOSINOPHIL COUNT 0.2 /CUMM (0.0-0.7); ABSOLUTE GRANULOCYTE CT 6.4 /CUMM (1.4-6.5); ABSOLUTE LYMPH COUNT 1.8 /CUMM (1.2-3.4); ABSOLUTE MONOCYTE COUNT 0.8 /CUMM (0.10-0.60); BASOPHIL % 0.5 % (0.0-2.0); EOSINOPHIL % 2.4 % (0-5); GRANULOCYTE % 68.9 % (42.2-75.2); HEMATOCRIT 23.3 % (42-52); MEAN CORPUSCULAR HGB 26.7 PG (27.0-31.0); MEAN CORPUSCULAR HGB CONC 33.8 G/DL (33.0-37.0); MEAN PLATELET VOLUME 8.1 FL (7.4-10.4); PLATELET COUNT 348 /CUMM (130-400); RBC DISTRIBUTION WIDTH 15.7 % (11.5-14.5); RED BLOOD CELL CT 2.95 /CUMM (4.70-6.10); WHITE BLOOD CELL COUNT 9.3 /CUMM (4.8-10.8)
--- NOTE | 2018-03-27 11:22 | PN- Vascular Surgery ---
Subjective Subjective: No events overnight. Patient's main complaint this morning is pain in his left leg. States the pain medication is helping but wears off. Otherwise without complaints. Denies any nausea, vomiting, fevers, chills, chest pain, or SOB. Denies any lightheadedness or dizziness. Tolerating his diet without issue. Adequate UOP - Long just removed. Objective Vital Signs and I&Os Vital Signs Date Time Temp Pulse Resp B/P B/P Pulse O2 O2 Flow FiO2 Mean Ox Delivery Rate 03/27 0642 99.5 93 18 114/60 93 Room Air 03/26 2208 99.0 97 20 120/54 93 Room Air 03/26 1501 98.9 91 20 106/60 96 Intake & Output 03/27 1600 03/27 0800 03/27 0000 03/26 1600 03/26 0800 03/26 0000 Intake Total 329 914 9431 1140 850 Output Total 525 1300 1800 825 500 550 Balance -525 -840 -1200 275 640 300 Intake, IV 200 900 600 Intake, Oral 460 600 900 240 250 Number 0 Bowel Movements Output, Urine 525 1300 1800 825 500 550 Patient 214 lb 221 lb Weight Weight Bed scale Reported by Patient Measurement Method Physical Exam: Low grade temps, VSS. Cardiac: RRR Pulmonary: CTAB Abdomen: Soft, non tender LLE: Facilities Officer dressing taken off, dressing to LLE is c/d/i. No drainage noted to dressing. Sensation grossly intact. Facilities Officer dressing re-applied. Assessment/Plan Assessment/Plan A/P: 53 y/o male POD#2 s/p left BKA. Stable post operatively. H/H slightly decreased this am, no signs of bleeding, dressing c/d/i. - Diet as tolerated - Pain control prn - Long discontinued - monitor ability to void - OOB to chair - Hangar prothetics saw patient today - PT to see patient today - will d/w Dr. Fine Core Measures Venous Thromboembolism VTE Risk Factors Surgery No Mechanical VTE Prophylaxis d/t N/A MechProphylax Ordered No VTE Pharm Prophylaxis d/t NA PharmProphylax ordered
[2018-03-27 13:16] VITALS: BP 130/60
[2018-03-27 23:04] VITALS: BP 134/76
[2018-03-28 06:44] VITALS: BP 124/62
[2018-03-28 08:17] LABS: ABSOLUTE BASOPHIL COUNT 0.1 /CUMM (0.0-0.2); ABSOLUTE EOSINOPHIL COUNT 0.3 /CUMM (0.0-0.7); ABSOLUTE GRANULOCYTE CT 6.1 /CUMM (1.4-6.5); ABSOLUTE LYMPH COUNT 1.7 /CUMM (1.2-3.4); ABSOLUTE MONOCYTE COUNT 0.6 /CUMM (0.10-0.60); BASOPHIL % 0.6 % (0.0-2.0); EOSINOPHIL % 3.5 % (0-5); GRANULOCYTE % 69.1 % (42.2-75.2); HEMATOCRIT 22.1 % (42-52); MEAN CORPUSCULAR HGB 26.5 PG (27.0-31.0); MEAN CORPUSCULAR HGB CONC 33.5 G/DL (33.0-37.0); MEAN CORPUSCULAR VOLUME 79.2 FL (80.0-94.0); MEAN PLATELET VOLUME 8.1 FL (7.4-10.4); PLATELET COUNT 353 /CUMM (130-400); RBC DISTRIBUTION WIDTH 16.2 % (11.5-14.5); RED BLOOD CELL CT 2.79 /CUMM (4.70-6.10); WHITE BLOOD CELL COUNT 8.8 /CUMM (4.8-10.8)
[2018-03-28 14:19] VITALS: BP 126/62
--- NOTE | 2018-03-28 16:52 | PN- Vascular Surgery ---
Subjective Subjective: No complaints. Remains asymptomatic with respect to stable anemia. No dizziness. No shortness of breath. No chest pains. Dressing changed by earlier today. Out of bed with PT and rolling walker assistance. Objective Vital Signs and I&Os Vital Signs Date Time Temp Pulse Resp B/P B/P Pulse O2 O2 Flow FiO2 Mean Ox Delivery Rate 03/28 1419 97.6 87 20 126/62 97 Room Air 03/28 0929 Room Air 1.0L 03/28 0800 Room Air 03/28 0644 98.8 84 16 124/62 96 Room Air 03/28 0034 99.0 03/27 2304 100.0 98 18 134/76 94 Room Air 03/27 2211 99.9 Intake & Output 03/28 1600 03/28 0800 03/28 0000 03/27 1600 03/27 0800 03/27 0000 Intake Total 480 460 800 460 600 Output Total 700 636 244 1993 1800 Balance 480 -240 150 -875 -840 -1200 Intake, Oral 480 460 800 460 600 Output, Urine 700 869 661 6984 1800 Patient 214 lb Weight Physical Exam: General - alert & oriented x 3. sleepy. comfortable. Lungs - clear bilaterally. no w/r/r. Cardiac - s1s2 Abdomen - soft. nontender. Extremities - paperhanger contractor device in place, dressing to LLE is c/d/i (dressing changed earlier by ). No drainage noted to dressing. Sensation grossly intact. Current Medications: Current Medications Sig/Rafaela Start time Last Medication Dose Route Stop Time Status Admin Aripiprazole 10 MG DAILY 03/26 0903/28 PO 0903 Atorvastatin Calcium 80 MG 1700 03/26 1700 03/28 PO 1634 Benztropine Mesylate 1 MG BID 03/25 PO 0904 Citalopram 30 MG DAILY 03/26 0903/28 Hydrobromide PO 0903 Diazepam 5 MG 4 TIMES/DAY PRN 03/26 PO 203 Docusate Sodium 100 MG BID 03/25 PO 0859 Gabapentin 800 MG Q8 03/25 2200 03/28 PO 1424 Gemfibrozil 600 MG BID 03/25 PO 0859 Heparin Sodium 5,000 UNIT Q8 03/26 0600 AC 03/28 (Porcine) SC 1424 Insulin Aspart 0 TIDAC 03/25 1700 AC 03/28 SC 1205 Metformin HCl 1,000 MG 0803/26 0800 AC 03/28 PO 0859 Metformin HCl 500 MG 1700 03/25 1700 AC 03/27 PO 1716 Mirtazapine 15 MG AT BEDTIME PRN 03/25 1630 AC PO Morphine Sulfate 4 MG Q2-3 HRS NEEDED.. 03/25 1730 AC 03/28 IV 0608 Ondansetron HCl 4 MG Q6P PRN 03/25 1730 AC IV Oxycodone HCl 15 MG Q12 03/25 2100 AC 03/28 PO 0904 Oxycodone HCl 5 MG Q4-6 PRN PRN 03/25 1730 AC PO Oxycodone HCl 10 MG Q4-6 PRN PRN 03/25 1730 AC 03/28 PO 1634 Results Last 48 Hours of Labs: Laboratory Tests 03/28 03/27 0620 0755 Chemistry Sodium (137 - 145 mmol/L) 137 Potassium (3.5 - 5.1 mmol/L) 4.0 Chloride (98 - 107 mmol/L) 99 Carbon Dioxide (22 - 30 mmol/L) 25 Anion Gap (5 - 16) 12 BUN (9 - 20 mg/dL) 8 L Creatinine (0.7 - 1.2 mg/dL) 0.7 Estimated GFR (>60 ml/min) > 60 BUN/Creatinine Ratio (7 - 25 %) 11.4 Hematology CBC w Diff NO MAN DIFF REQ NO MAN DIFF REQ WBC (4.8 - 10.8 /CUMM) 8.8 9.3 RBC (4.70 - 6.10 /CUMM) 2.79 L 2.95 L Hgb (14.0 - 18.0 G/DL) 7.4 *L 7.9 L Hct (42 - 52 %) 22.1 L 23.3 L MCV (80.0 - 94.0 FL) 79.2 L 79.0 L MCH (27.0 - 31.0 PG) 26.5 L 26.7 L MCHC (33.0 - 37.0 G/DL) 33.5 33.8 RDW (11.5 - 14.5 %) 16.2 H 15.7 H Plt Count (130 - 400 /CUMM) 353 348 MPV (7.4 - 10.4 FL) 8.1 8.1 Gran % (42.2 - 75.2 %) 69.1 68.9 Lymphocytes % (20.5 - 51.1 %) 19.6 L 19.7 L Monocytes % (1.7 - 9.3 %) 7.2 8.5 Eosinophils % (0 - 5 %) 3.5 2.4 Basophils % (0.0 - 2.0 %) 0.6 0.5 Absolute Granulocytes (1.4 - 6.5 /CUMM) 6.1 6.4 Absolute Lymphocytes (1.2 - 3.4 /CUMM) 1.7 1.8 Absolute Monocytes (0.10 - 0.60 /CUMM) 0.6 0.8 H Absolute Eosinophils (0.0 - 0.7 /CUMM) 0.3 0.2 Absolute Basophils (0.0 - 0.2 /CUMM) 0.1 0 Assessment/Plan Assessment/Plan This 53 year old male with hx dm, neuropathy, substance abuse, htn, hld, POD#3 s /p left transtibial amputation for chronic nonhealing left foot and lower leg osteomyelitis and wound, with stable and symptomatic acute sukhdeep-op blood loss anemia (s/p transfusion 1u prbc during surgery) tolerating diabetic diet pain control as ordered dressing changed by today, to continue daily dry guaze dressing changes hep sc - dvt ppx accuchecks / coverage as ordered paperhanger contractor device in place out of bed with PT and rolling walker assistance ?possible d/c to str tomorrow f/u am labs will need efraín removed around post-op day#14 will d/w Core Measures Venous Thromboembolism VTE Risk Factors Surgery No Mechanical VTE Prophylaxis d/t N/A MechProphylax Ordered No VTE Pharm Prophylaxis d/t NA PharmProphylax ordered
[2018-03-28 22:35] VITALS: BP 122/70
[2018-03-29 06:14] VITALS: BP 116/68
[2018-03-29 08:31] LABS: ABSOLUTE BASOPHIL COUNT 0.1 /CUMM (0.0-0.2); ABSOLUTE EOSINOPHIL COUNT 0.4 /CUMM (0.0-0.7); ABSOLUTE GRANULOCYTE CT 5.4 /CUMM (1.4-6.5); ABSOLUTE MONOCYTE COUNT 0.6 /CUMM (0.10-0.60); BASOPHIL % 0.6 % (0.0-2.0); EOSINOPHIL % 5.1 % (0-5); GRANULOCYTE % 63.9 % (42.2-75.2); HEMATOCRIT 22.9 % (42-52); MEAN CORPUSCULAR HGB 26.5 PG (27.0-31.0); MEAN CORPUSCULAR HGB CONC 33.4 G/DL (33.0-37.0); MEAN CORPUSCULAR VOLUME 79.5 FL (80.0-94.0); MEAN PLATELET VOLUME 8.6 FL (7.4-10.4); PLATELET COUNT 380 /CUMM (130-400); RBC DISTRIBUTION WIDTH 16.1 % (11.5-14.5); RED BLOOD CELL CT 2.88 /CUMM (4.70-6.10); WHITE BLOOD CELL COUNT 8.5 /CUMM (4.8-10.8)
[2018-03-29] MEDS ORDERED: DOCUSATE SODIU100 M3 PO (14:09)
[2018-03-29] MEDS ORDERED: OXYCONTIN15 M1 PO (14:09)
== END 2018-03-29 14:07 | DRG 305 ==
LOC: STS 02:59 → EDSTATUS 07:00 → PACUH 10:44 → 2NA 10:44 → PACUH 10:48 → ENRESERV 16:05 → ENTRNSPT 16:45 → EDTRNSPTSTS 16:53 → EDTRNSPT 16:53 → 2NA 17:02 → CMPTRNSPT 17:21 → ENPENDDIS 03-29 10:19 → 2NA 03-29 14:07
PROVIDERS: Nurse Practitioner; Physician Assistant; Physician Assistant Surgical; Surgery
PROC: 0Y6J0Z2 Detachment at Left Lower Leg, Mid, Open Approach (ICD-10-PCS; principal; 2018-03-25)
PROC: 30233N1 Transfusion of Nonautologous Red Blood Cells into Peripheral Vein, Percutaneous Approach (ICD-10-PCS; 2018-03-25)
PROC: 3E0T3BZ Introduction of Anesthetic Agent into Peripheral Nerves and Plexi, Percutaneous Approach (ICD-10-PCS; 2018-03-25)
DX: E11.621 Type 2 diabetes mellitus with foot ulcer (principal); L97.526 Non-pressure chronic ulcer of other part of left foot with bone involvement without evidence of necrosis; E11.69 Type 2 diabetes mellitus with other specified complication; M86.8X6 Other osteomyelitis, lower leg; D62 Acute posthemorrhagic anemia; E11.65 Type 2 diabetes mellitus with hyperglycemia; E11.42 Type 2 diabetes mellitus with diabetic polyneuropathy; Z79.84 Long term (current) use of oral hypoglycemic drugs; I10 Essential (primary) hypertension; E66.01 Morbid (severe) obesity due to excess calories; Z68.33 Body mass index [BMI] 33.0-33.9, adult; Z79.4 Long term (current) use of insulin; E78.5 Hyperlipidemia, unspecified; F41.9 Anxiety disorder, unspecified; F32.9 Major depressive disorder, single episode, unspecified; E11.51 Type 2 diabetes mellitus with diabetic peripheral angiopathy without gangrene
CPT/HCPCS: 2NAP; 36415; 36592; 82436; 86920; 87086; 88307; 97110-GO; 97116-GO; 97161-GP; 97530-GO; J0131; J0401; J0690; J1644; J2405; J7042; P9016